=== PATIENT | male | born 1960 | race Caucasian/White ===

== ENCOUNTER 2024-11-16 10:25 | Day surgery (SDC) | payer MEDICARE, MEDICAID, SELFPAY ==
[2024-11-13 14:42] VITALS: BMI 22.9
[2024-11-16] VITALS (12 sets, daily range): BP systolic 99–160; BP diastolic 53–95; PULSE 45–73; RESP 11–22; TEMP 36.2–36.9; O2SAT 97–100; BMI 22.6
[2024-11-16] MEDS: SODIUM CHLORIDE 0.9% 500 ML 500 ML 20 ML IV (12:48)
[2024-11-16] MEDS: DiphenhydrAMINE INJ 50 MG/ML VIAL 25 MG IV (12:48)
[2024-11-16] MEDS: ONDANSETRON INJ 2 MG/ML INJ 2 ML 4 MG IV (12:48)
[2024-11-16] MEDS: fentaNYL CIT INJ 50 mCg/ML AMP 2ML (ASD USE ONLY) IV (12:48)
[2024-11-16] MEDS: MIDAZOLAM INJ 1 MG/ML VIAL 2 ML (ASD USE ONLY) 2 MG IV (12:49)
--- NOTE | 2024-11-16 13:16 | SUR.PHASEII ---
Hand off report given to Piyush REESE
== END 2024-11-16 14:00 | disposition home or self-care (01) ==
PROVIDERS: PCP Family Medicine; Referring Provider Specialist; Visit Provider Specialist
PROC: 0DBE8ZX Excision of Large Intestine, Via Natural or Artificial Opening Endoscopic, Diagnostic (ICD-10-PCS; CPT 45380; principal; 2024-11-16 10:15)
PROC: (CPT 43239; 2024-11-16 10:15)
DX: D12.8 Benign neoplasm of rectum (principal); D64.9 Anemia, unspecified; K57.31 Diverticulosis of large intestine without perforation or abscess with bleeding
CPT/HCPCS: 45380; 45385; A4649; J1200; J2250; J2405; J3010; J7040

== ENCOUNTER 2024-12-31 08:50 | Inpatient (IN) | payer MEDICARE, MEDICAID, SELFPAY ==
[2024-12-31] VITALS (7 sets, daily range): BP systolic 133–159; BP diastolic 78–81; PULSE 51–84; RESP 16–97; TEMP 36.4–36.7; O2SAT 95–99; BMI 24.7
--- NOTE | 2024-12-31 | XR_ITS ---
Examinations: MRI Brain without intravenous contrast. MRA brain without intravenous contrast. MRA carotids without intravenous contrast 3-D vascular reconstructions Date and time of exam: December 31, 2024 1344 hrs. Indications: Stroke alert this morning, onset right-sided body weakness slurred speech Technique: Multiple axial and sagittal images of the brain have been obtained MRA brain carotid images without contrast obtained, including 3-D postprocessing, vascular maximum intensity projection images Findings: Sellaturcica is not enlarged. The optic chiasm and infundibular stalk are not remarkable. Prepontine and interpeduncular cisterns are not enlarged. No localized enlargement of the medulla or michael. Fourth ventricle and cerebellar tonsils normal in position. Subacute hemorrhage is not seen. Fourth ventricle is midline. Mass in the cerebellopontine angle region is not evident. 7th and 8th nerve complexes exhibits symmetry. Globes are symmetrical with no retro-orbital mass. Increased white matter signal significant, old infarct posterior left parietal left occipital lobe Diffusion-weighted images demonstrate no focus of restricted diffusion with matching ADC deficit Mass-effect upon the ventricular system is not identified. MRA carotid images no significant carotid stenoses. MRA brain images no large vessel occlusions, there is moderate diffuse cerebral arterial irregularity Impression: Negative for acute hemorrhage mass effect or midline shift No acute infarct Large old infarct posterior left parietal left occipital lobe Moderate diffuse cerebral arterial irregularity
--- NOTE | 2024-12-31 08:54 | EDNOTE_ITS ---
Neuro Symptoms Deficit-RME/HPI General Chief Complaint: Neuro Symptoms/Deficit Stated Complaint: WEAKNESS Time Seen by Provider: 12/31/24 09:14 Arrival date/time: 12/31/24 08:50 RME / HPI RME / HPI Narrative: 64 year old male with history of CVA, lung CA s/p postradiation, hypertension, BPH presents to the ED BIBA from home for evaluation of right sided weakness and slurred speech. Patient reports symptoms began yesterday and per medics was last known well at 21:00 hours last night. Per medics, on their assessment patient had right arm weakness with drift and FSBS 158. No other complaints reported while in the ED. Denies fevers, chills, sweats.Denies chest pain, cough, shortness of breath. Denies nausea, vomiting, diarrhea, constipation. Denies dysuria, urinary frequency and urgency. Related Data Home Medications ?Medication ?Instructions ?Recorded ?Confirmed Phenytoin Sodium Extended * 300 mg PO HS #0 caps 04/1411/16/24 (DILANTIN *) oxcarbazepine 300 mg tablet 900 mg PO BID #0 tabs 03/2411/16/24 (Trileptal) tamsulosin 0.4 mg capsule 0.4 mg PO QDAY 05/05/2010/25 topiramate 25 mg sprinkle capsule 25 mg PO BID Seizure s 11/28/22 11/16/24 atorvastatin 20 mg tablet 20 mg PO QAM 01/09/23 Previous Rx's ?Medication ?Instructions ?Recorded aspirin 81 mg tablet,delayed 81 mg PO DAILY 30 days #3 0 tabs 12/08/22 release (Jerica Low Dose Aspirin) Allergies Allergy/AdvReac Type Severity Reaction Status Date / Time No Known Allergies Allergy Verified 11/16/24 10:57 Review of Systems Review of Systems Narrative Review of Systems: GEN: No fever, no chills, no weight loss EYES: No discharge, no visual changes, no pain HEENT: No ear pain, no congestion, no sore throat PULM: No shortness of breath, no cough, no congestion CV: No chest pain, no dyspnea on exertion, no palpitations GI: No nausea, no vomiting, no diarrhea, no pain, no constipation : No frequency, no urgency, no dysuria MUSC/SKEL: No joint pain, no back pain SKIN: No rash NEURO: No headache, +rigth sided weakness, +slurred speech Past Medical History Past Medical History NEUROLOGIC: Positive Cerebrovascular Accident and Seizures CARDIAC: Positive Cardiac Disorders, Hypercholesterolemia and Hypertension RESPIRATORY: Positive Cough and Smoking GASTROINTESTINAL: Positive Gastrointestinal Disorders (HEMMOCULT BLOOD IN STOOL) GENITOURINARY: Positive Genitourinary Disorders and Benign Prostatic Hyperplasia MUSCULOSKELETAL: Positive Musculoskeletal Disorders and Fractures (LEFT HIP) OTHER HISTORY: Positive Chemotherapy (20 years ago), Radiation Therapy (20 years ago), Cancer (brain and lung ca) and Lung Cancer Family History FAMILY HISTORY: Positive Family Cancer (PT'S MOM BREAST CANCER, PT'S DAD BRAIN CANCER) Surgical History SURGICAL: Positive Joint Replacement (LEFT HIP) and Neurologic Surgery; Negative Cardiac Surgery Social History SMOKING STATUS: Former smoker ED Exam Narrative Physical exam: GENERAL APPEARANCE: alert and oriented x 4, well-developed, well-nourished, no acute distress, subjective slurred speech HEENT: Normocephalic, atraumatic; pupils equal, round, reactive to light; EOMI; mucous membranes pink, moist; oropharynx clear NECK: Supple LUNGS: CTABL; no wheezes, no rales, no rhonchi HEART: Regular rate, regular rhythm; normal S1, S2; no murmurs ABDOMEN: non distended; normal BS; soft, no tenderness, no guarding, no rebound; no masses, no organomegaly, no hernia BACK: no CVA tenderness EXTREMITIES: atraumatic; no edema NEUROLOGIC: awake; alert and oriented x4; subjective slurred speech, mild right sided weakness PSYCHIATRIC: appropriate mood and affect SKIN: warm, dry, normal color; no rashes Course Course Course Narrative: 0852: Patient evaluated in ED ambulance bay, stroke alert activated. 0930: I spoke with teleneurologist Dr. Moura as noted below. 1020: I spoke with resident Dr. James working with Dr. Parada regarding admission as noted below. Quality Measures Suspected type of Stroke: Unknown at this time (Seizure vs stroke ) Last known well (date): 12/30/24 Last known well (time): 21:00 Tenecteplase given: Reason(s) TPA not given: Outside the time window not given stroke Orders Category Date Time Status Bedside Blood Glucose NOW Care 12/31/24 08:54 Active White Metal Corrosion Proofer NOW Care 12/31/24 08:54 Active Continuous Pulse Oximetry NOW Care 12/31/24 08:54 Completed EKG (ED ONLY) *Do not use* NOW Care 12/31/24 08:54 Completed In and Out Catheter NEEDED Care 12/31/24 08:54 Active Insert IV NOW Care 12/31/24 08:54 Active NIH Stroke Scale now Care 12/31/24 08:54 Active NPO NOW Care 12/31/24 08:54 Active Nurse Swallow Screen x1 Care 12/31/24 08:54 Active Consult to Neurology / Tele-Neurology Routine Cons 12/31/24 08:[address] angio stroke protocol Stat Exams 12/31/24 08:[address] stroke protocol Stat Exams 12/31/24 08:54 Completed EKG (ED Only) Stat Exams 12/31/24 08:54 Draft Alcohol, Blood Medical Stat Lab 12/31/24 09:08 Completed CBC Stat Lab 12/31/24 09:08 Completed Comprehensive Metabolic Panel Stat Lab 12/31/24 09:08 Completed Drug Screen,Urine Stat Lab 12/31/24 10:32 Completed Magnesium Stat Lab 12/31/24 09:08 Completed Partial Thromboplastin Time Stat Lab 12/31/24 09:08 Completed Prothrombin Time with INR Stat Lab 12/31/24 09:08 Completed Troponin I Stat Lab 12/31/24 09:08 Completed Urinalysis Stat Lab 12/31/24 10:32 Completed Urine Culture Stat Lab 12/31/24 10:32 Received Aspirin Chew Med 12/31/24 09:32 Discontinued 324 mg PO X1 ONE Clopidogrel [Plavix] Med 12/31/24 09:32 Discontinued 300 mg PO X1 ONE Ondansetron Inj [Zofran Inj] Med 12/31/24 08:53 Active 4 mg IV Q4HR PRN Oxygen Delivery NOW RT 12/31/24 08:54 Active Vital Signs Vital signs: Vital Signs Temperature 98.1 F 12/31/24 09:15 Pulse Rate 73 12/31/24 09:15 Respiratory Rate 16 12/31/24 09:15 Blood Pressure 159/81 H 12/31/24 09:15 Pulse Oximetry (%) 96 12/31/24 09:15 Oxygen Delivery Method Room Air 12/31/24 09:15 Neuro Symptoms / Deficit MDM Narrative MDM Narrative:: Britt Gutierrez am scribing for and in the presence of Dr. Hernandez. Patient data External records reviewed:: [facility] previous records (I reviewed ED visit on 02/23/2024 through 02/27/2024 ) and EMS form Clinical information provided by:: patient and EMS Social determinants that could affect healthcare access:: none Patient has the following chronic illnesses:: CVA, lung CA with brain mets s/p radiation, hypertension, BPH How is presenting disease/condition affected by chronic disease/condition?: exacerbated by Evaluation data The following diagnostics were reviewed and interpreted by me:: lab results, radiology exam(s) and EKG tracing(s) (EKG @ 09:51 AM. Normal sinus rhythm, rate 73, ST depression in lead II V5 and V6, mild IVCD. ) Lab and/or radiology exams considered but not ordered:: None Interpretation Summary: Ordering Physician: Terra Hernandez MD Date of Service: 12/31/24 Procedure(s): CT stroke protocol Accession Number(s): [id number] cc: Champ Wu MD; Terra Hernandez MD~ Examination: CT brain head without contrast. 2-D sagittal coronal reconstructions Date and time of exam:December 31, 2024 0858 hrs. Comparison 08/12/2024 Indications: Stroke alert, onset focal neurologic deficit, right-sided facial weakness today CTDI: vol (mGy):47.1 DLP: (mGycm):1034 Technique: Multiple CT axial sections of the brain have been obtained, 5 mm slice thickness. Contrast has not been administered. 2-D sagittal, coronal reconstructions have been obtained Low dose protocols were performed. One or more of the following dose reduction techniques were used; automated exposure control, adjustment of the mA and/or KV according to patient size, use of iterative reconstruction technique. Findings: Again noted left occipital craniotomy defect with encephalomalacia left posterior parietal left occipital lobe Mild ventricular enlargement Old infarct left caudate nucleus No interval hemorrhage or mass effect No cranial vault fracture Impression: No interval acute hemorrhage mass effect or midline shift Dictated By: Champ Wu MD Signed By: <Electronically signed by Champ Wu MD in OV> 12/31/24 0904 Ordering Physician: Terra Hernandez MD Date of Service: 12/31/24 Procedure(s): CT angio stroke protocol Accession Number(s): [id number] cc: Champ Wu MD; Terra Hernandez MD~ Examination: CTA carotids with intravenous contrast CTA brain, head with intravenous contrast. 2-D sagittal, coronal reconstructions. 3-D reconstructions. Exam date and time: December 31, 2024 0906 hrs. Indications: Stroke alert, onset right-sided facial weakness today CTDI: vol (mGy) 25.6 DLP: (mGycm) 480 Technique: Multiple CTA axial brain, head carotid images post intravenous contrast injection 75 cc, Isovue-370. 2-D sagittal, coronal reconstructions. 3-D reconstructions, 3-D post processing including vascular maximum intensity projection images. Low dose protocols were performed. One or more of the following dose reduction techniques were used; automated exposure control, adjustment of the mA and/or KV according to patient size, use of iterative reconstruction technique. Findings: 4 mm pulmonary nodule right upper lobe image 235 12 mm soft pulmonary nodule right upper lobe image 252 Bleb in the left upper lobe 20 mm image 219 No significant common carotid carotid bifurcation or internal carotid artery stenoses Minimally dominant left vertebral artery in the neck with no critical stenoses Intracranial vertebral arteries basilar artery posterior cerebral branches demonstrate no large vessel occlusions Moderate calcification right juxtasellar internal carotid artery No middle cerebral or anterior cerebral artery large vessel occlusions There is mild to moderate diffuse cerebral arterial irregularity Impression: Small right upper lobe pulmonary nodules as above No significant neck arterial stenoses No cerebral large vessel arterial occlusions or thrombus Consider brain MRI MRA, without contrast, stroke protocol, follow-up Dictated By: Champ Wu MD Signed By: <Electronically signed by Champ Wu MD in OV> 12/31/24 0929 Medications / Prescriptions Medications or Prescriptions considered but not ordered:: None Medication administrations:: Medication Administration History Ondansetron HCl (Ondansetron Inj 2 Mg/Ml Inj 2 Ml) 4 mg IV Q4HR PRN PRN Reason: NAUSEA OR VOMITING Stop: 01/30/25 08:52 Discontinued Medications Aspirin (Aspirin 81 Mg Chew) 324 mg PO X1 ONE Stop: 12/31/24 09:33 Last Admin: 12/31/24 09:49 Dose: 324 mg Documented By: GM Clopidogrel Bisulfate (Clopidogrel Bisulfate 75 Mg Tablet) 300 mg PO X1 ONE Stop: 12/31/24 09:33 Last Admin: 12/31/24 09:47 Dose: 300 mg Documented By: See above Consultations Consultation(s) initiated? (list below): Yes Consultation #1 (Physician, Specialty, Details): I spoke with teleneurologist Dr. Moura. States at this time patient is not a tpa candidate, recommends Plavix and Aspirin and admitting for stroke vs seizure work-up. Time: 09:30 Consultation #2 (Physician, Specialty, Details): I spoke with resident Dr. James working with Dr. Parada regarding admission. Discussed patients PMHx, HPI, ED course, exam findings, labs, and radiology results. The hospitalist agree to accept the patient for admission. Time: 10:20 Diagnosis Neuro Differential Diagnosis: subarachnoid hemorrhage, cerebrovascular accident, transient cerebral ischemia and other (seizure ) Most likely diagnosis given after review of the tests above:: Slurred speech Right sided weakness Admission Indicated Admission indicated?: indicated Explain why admission is indicated or not indicated:: Fort stroke vs seizure work-up Admission Request Was there a request for admission?: Yes Admission Attestation Admission request attestation: Discussed case with [] from Hospitalist service regarding admission. Discussed patients ED course, exam findings, labs, and radiology results. The Hospitalist [agrees,declines] to accept the patient for admission. Disposition Plan Disposition Plan: Admit Critical Care Time Critical Care Time Critical Care Time: Yes Total Critical Care Time (min.): 35 Attestation: The high probability of sudden, clinically significant deterioration in the patient's condition required the highest level of my preparedness to intervene urgently. The services I provided to this patient were to treat and/or prevent clinically significant deterioration. Services included the following: chart data review, reviewing nursing notes and/or old charts, documentation time, art sales consultant collab oration regarding findings and treatment options, medication orders and management, direct patient care, vital sign assessments and ordering, interpreting and reviewing diagnostic studies and lab tests. Aggregate critical care time includes only time during which I was engaged in work directly related to the patient's care, as described above, whether at bedside or elsewhere in the Emergency Department. It did not include time spent performing other reported procedures or the services of residents, students, nurses or physician assistants. Discharge Plan Plan Patient Disposition: Admit Acute Care w/in Hospital Prescriptions/Referrals Prescriptions/Med Rec: No Action tamsulosin 0.4 mg capsule 0.4 mg PO QDAY oxcarbazepine [Trileptal] 300 MG tablet 900 mg PO BID Qty: 0 Rx Instructions: TAKE 3 TABLETS BY MOUTH TWICE DAILY Phenytoin Sodium Extended * (DILANTIN *) 100 MG capsule 300 mg PO HS Qty: 0 Patient Comments: FOR SEIZURE CONTROL topiramate 25 mg Capsule, Sprinkle 25 mg PO BID Rx Instructions: TAKE 1 CAPSULE BY MOUTH TWICE DAILY FOR SEIZURES aspirin [Jerica Low Dose Aspirin] 81 mg Tablet,Delayed Release (Dr/Ec) 81 mg PO DAILY 30 Days Qty: 30 0RF atorvastatin 20 mg tablet 20 mg PO QAM Referrals: No Primary/Family,Physician [Primary Care Provider] - In 1 week Problem List Clinical Impression: Slurred speech, Right sided weakness Patient/Caregiver Discharge Instructions Print Language: Hungarian Stand Alone Forms: Jasmina Award Info., Patient Portal Info Letter
--- NOTE | 2024-12-31 08:54 | EKG_ITS ---
[facility] Test Date: 2024-12-31 Pat Name: ANTON HATCH Department: Room: - Gender: Male Senior Economist: : 1960 Requested By: Terra Don Order Number: [id number] Reading MD: Terra Don Measurements Intervals [place] Rate: 73 P: 70 ME: 164 QRS: 7 QRSD: 118 T: 47 QT: 396 QTc: 437 Interpretive Statements SINUS RHYTHM MODERATE INTRAVENTRICULAR CONDUCTION DELAY [110+ ms QRS DURATION] MODERATE VOLTAGE CRITERIA FOR LVH, CONSIDER NORMAL VARIANT [MEETS CRITERIA IN ONE OF: R(aVL), S(V1), R(V5), R(V5/V6)+S(V1)] Compared to ECG 05/20/2024 10:39:15 Intraventricular conduction delay now present Ventricular premature complex(es) no longer present Incomplete right bundle-branch block no longer present T-wave abnormality no longer present /store/S0/[id number]/ecg/[id number].pdf
--- NOTE | 2024-12-31 09:07 | PC.NURSE ---
DR. Jonah PHILIPPE FOR TELENEUROLOGIST CONSULT; PER DR. Jonah PHILIPPE, PT NOT A CANDIDATE FOR TNK AT THIS TIME.
[2024-12-31 09:14] LABS: Basophils # (Auto) 0.1 Thou/mm3 (0.0-0.2); Basophils % (Auto) 1 % (0-2.5); Eosinophils # (Auto) 0.1 Thou/mm3 (0.0-0.5); Eosinophils % (Auto) 1 % (0-10); Hematocrit 36.8 % (41.0-53.0); Hemoglobin 12.7 g/dL (13.5-16.0); Immature Granulocytes % (Auto) 1 % (0-0); Immature Granulocytes Auto 0.05 Thou/mm3 (0.00-0.00); Lymphocytes # (Auto) 1.8 Thou/mm3 (1.0-4.8); Lymphocytes % (Auto) 17 % (10-50); Mean Corpuscular HGB Conc 34.5 g/dl (31.0-37.0); Mean Corpuscular Hemoglobin 29.3 pg (25.0-35.0); Mean Corpuscular Volume 85 fL (80-100); Monocytes # (Auto) 0.8 Thou/mm3 (0.0-0.8); Monocytes % (Auto) 8 % (0-12); Neutrophils # (Auto) 7.9 Thou/mm3 (1.8-7.7); Neutrophils % (Auto) 74 % (37-80); Nucleated Red Blood Cell % 0 /100 WBC (0); Platelet Count 264 Thou/mm3 (140-440); RDW Standard Deviation 46.1 fL (35.1-43.9); Red Blood Count 4.33 Miln/mm3 (4.50-5.90); White Blood Count 10.7 Thou/mm3 (3.8-10.6)
[2024-12-31 09:28] LABS: Partial Thromboplastin Time 26.2 Seconds (22.0-36.0); Prothrombin Time 11.2 Seconds (9.0-12.2)
--- NOTE | 2024-12-31 09:40 | PD.TNEURO ---
Tele Neuro Consultation Consultation Date 12/31/24 Most Recent Vital Signs Last Vital Signs Temp 98.1 F 12/31/24 09:15 Pulse 73 12/31/24 09:15 Resp 20 12/31/24 09:15 BP 159/81 H 12/31/24 09:15 Pulse Ox 96 12/31/24 09:15 O2 Del Method Room Air 12/31/24 09:15 Laboratory-Coagulation Panel PT 11.2 Seconds (9.0-12.2) 12/31/24 09:08 INR 1.0 (0.9-1.3) 12/31/24 09:08 APTT 26.2 Seconds (22.0-36.0) 12/31/24 09:08 Consultation Narrative [facility] Tele[facility]urology Consult Services Patient Name:???Wil Garcia Date of :???1960 Identification Number:??? 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 Patient experienced slurred speech and difficulty eating yesterday, followed by weakness, trouble walking, and falls today. Neurological examination revealed right-sided visual field deficits and possible motor deficits. Current vital signs show elevated blood pressure at 161/77 and blood glucose of 158. Differential diagnosis includes new stroke, seizure, or SMART syndrome exacerbation. Time of symptom onset places patient outside the window for thrombolytic therapy. Further evaluation with brain MRI is necessary to determine the etiology of symptoms. Our recommendations are outlined below. Recommendations: ? Stroke/Telemetry Floor ? Neuro Checks ? Bedside Swallow Eval ? DVT Prophylaxis ? IV Fluids, Normal Saline ? Head of Bed 30 Degrees ? Euglycemia and Avoid Hyperthermia (PRN Acetaminophen) ? Bolus with Clopidogrel 300 mg bolus x1 and initiate dual antiplatelet therapy with Aspirin 81 mg daily and Clopidogrel 75 mg daily ? Antihypertensives PRN if Blood pressure is greater than 220/120 or there is a concern for End organ damage/contraindications for permissive HTN. If blood pressure is greater than 220/120 give labetalol PO or IV or Vasotec IV with a goal of 15% reduction in BP during the first 24 hours. Sign Out: ? Discussed with Emergency Department Provider Advanced Imaging:CTA Head and Neck Completed. LVO:No Patient in not a candidate for JENNY Metrics: Last Known Well: 12/30/2024 10:00:00 Dispatch Time: 12/31/2024 08:54:37 Arrival Time: 12/31/2024 08:50:00 Initial Response Time: 12/31/2024 09:01:50Symptoms: slurred speech, weakness. Initial patient interaction: 12/31/2024 09:13:44 NIHSS Assessment Completed: 12/31/2024 09:20:00Patient is not a candidate for Thrombolytic. Thrombolytic Medical Decision: 12/31/2024 09:20:00Patient was not deemed candidate for Thrombolytic because of following reasons: LKW outside [address] head showed no acute hemorrhage or acute core infarct. Primary Provider Notified of Diagnostic Impression and Management Plan on: 12/31/2024 09:27:34 History of Present Illness:Patient is a 64 year old Male. Patient was brought by EMS for symptoms of slurred speech, weakness. Mr. Garcia, a 64-year-old male with a history of stroke in 2019, Smart syndrome, Lung cancer, HTN presents with acute onset of neurological symptoms. Yesterday at 10 a.m., his grandson noticed difficulty eating and slurred speech. Today, his daughter reported weakness, trouble walking, and a fall this morning. The patient also experienced another fall, urinary incontinence, and inability to hold a cup or fork. The patient's symptoms began yesterday with slurred speech and difficulty eating. This morning, his condition worsened, leading to falls, weakness, and gait disturbance. The patient was unable to perform basic tasks such as holding utensils or walking independently. These symptoms have significantly impacted his daily functioning and self-care abilities. Mr. Garcia has a history of seizures, with the last episode occurring a few years ago. He is currently taking aspirin .The patient's daughter, Valeri, provided additional information about his recent symptoms and medical history. ? 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 Antiplatelet use:?Yes?asa Reviewed EMR for current medications Allergies:? Reviewed Social History: Drug Use: No Family History: There is no family history of premature cerebrovascular disease pertinent to this consultation ROS : 14 Points Review of Systems was performed and was negative except mentioned in HPI. Past Surgical History: There Is No Surgical History Contributory To Today?s Visit ? Examination: BP(161/77),?Pulse(78),?Blood Glucose(158) 1A: Level of Consciousness - Alert; keenly responsive?+ 0 1B: Ask Month and Age - 1 Question Right?+ 1 1C: Blink Eyes & Squeeze Hands - Performs Both Tasks?+ 0 2: Test Horizontal Extraocular Movements - Normal?+ 0 3: Test Visual Schwab - Partial Hemianopia?+ 1 4: Test Facial Palsy (Use Grimace if Obtunded) - Normal symmetry?+ 0 5A: Test Left Arm Motor Drift - No Drift for 10 Seconds?+ 0 5B: Test Right Arm Motor Drift - Drift, but doesn't hit bed?+ 1 6A: Test Left Leg Motor Drift - No Drift for 5 Seconds?+ 0 6B: Test Right Leg Motor Drift - No Drift for 5 Seconds?+ 0 7: Test Limb Ataxia (FNF/Heel-De La Cruz) - Ataxia in 1 Limb?+ 1 8: Test Sensation - Normal; No sensory loss?+ 0 9: Test Language/Aphasia - Normal; No aphasia?+ 0 10: Test Dysarthria - Normal?+ 0 11: Test Extinction/Inattention - No abnormality?+ 0 NIHSS Score:?4 Pre-Morbid Modified [place] Scale:Unable to assess Spoke with :?Dr. Hernandez This consult was conducted in real time using interactive audio and video technology. Patient was informed of the technology being used for this visit and agreed to proceed. Patient located in hospital and provider located at home/office setting. Patient is being evaluated for possible acute neurologic impairment and high probability of imminent or life-threatening deterioration. I spent total of 35 minutes providing care to this patient, including time for face to face visit via telemedicine, review of medical records, imaging studies and discussion of findings with providers, the patient and/or family. Dr Anmol Moura [facility] For Inpatient follow-up with [facility] physician please call [facility] at . As we are not an outpatient service for any post hospital discharge needs please contact the hospital for assistance. If you have any questions for the [facility] physicians or need to reconsult for clinical or diagnostic changes please contact us via [facility] at .
[2024-12-31 09:47] LABS: Alanine Aminotransferase < 7 U/L (10-49); Albumin, Serum 4.4 gm/dL (3.4-4.8); Alcohol, Blood Medical < 3.0 mg/dL (0-10.0); Alkaline Phosphatase 115 U/L (46-116); Anion Gap 7 (7-16); Aspartate Amino Transferase 11 U/L (0-34); BUN/Creatinine Ratio 13 Ratio (12-20); Bilirubin,Total 0.3 mg/dL (0.3-1.2); Blood Urea Nitrogen 12 mg/dL (9-23); Calcium 8.7 mg/dL (8.3-10.6); Calcium (Corrected) 8.7 mg/dL (8.5-10.1); Carbon Dioxide 27.6 mMol/L (20.0-31.0); Chloride 106 mMol/L (98-107); Creatinine (Component) 0.9 mg/dL (0.6-1.3); Estimated Creatinine Clearance 80.2 mL/min (>60); Globulin 2.2 gm/dL (2.3-3.5); Glucose 128 mg/dL (74-106); Magnesium 1.8 mg/dL (1.6-2.6); Osmolality,Calculated 282 (275-295); Potassium 3.5 mMol/L (3.4-5.1); Sodium 141 mMol/L (136-145); Total Protein 6.6 gm/dL (5.7-8.2); Troponin I < 0.020 ng/mL (0.0-0.045); eGFR > 60 See Note
[2024-12-31] MEDS: CLOPIDOGREL BISULFATE 75 MG TABLET 300 MG PO (09:47)
[2024-12-31] MEDS: ASPIRIN 81 MG CHEW 324 MG PO (09:49)
[2024-12-31 10:47] LABS: Collection Type, Urine Clean Catch; Squamous Epithelial Cell,Urine 0 /hpf (0-5); WBC,Urine 0 /hpf (0-5)
[2024-12-31 10:58] LABS: Amorphous Crystals,Urine Present (Absent); Bilirubin,Urine Negative (Negative); Blood,Urine Negative (Negative); Color,Urine Lt-Yellow (Lt Yel-Yel); Glucose, Urine Negative (Negative); Ketones,Urine Negative (Negative); Leukocyte Esterase,Urine Negative (Negative); Nitrite,Urine Negative (Negative); Protein,Urine Negative (Neg - Trace); RBC,Urine 2 /hpf (0-3); Specific Gravity,Urine 1.033 (1.001-1.035); Urobilinogen,Urine Negative mg/dL (0.0-1.0)
[2024-12-31 11:03] LABS: Amphetamine/Methamp Scrn,U Negative (Negative); Barbiturate Screen,Urine Negative (Negative); Benzodiazepines Screen,Urine Negative (Negative); Benzoylecgonine Screen, Ur Negative (Negative); Fentanyl Screen,Urine Negative (Negative); Opiate Screen,Urine Negative (Negative); THC Screen,Urine Positive (Negative)
[2024-12-31 11:07] LABS: Clarity,Urine Hazy (Clear/Hazy)
--- NOTE | 2024-12-31 12:03 | PD.RESHP ---
Documentation for date of: 12/31/24 HPI History of Present Illness Chief complaint: Right-sided weakness History of present illness: Mr. 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 Patient experienced slurred speech and difficulty eating yesterday, followed by weakness trouble walking earlier today, patient reported that he was getting out of bed and he fell, hitting his right arm patient denies losing consciousness, presyncopal symptoms also denies hitting his head. Patient continues to complain of weakness in the right leg, reports that his right arm weakness has improved, no drooping noted on the face and slurred speech has resolved as well. Patient reports extensive history of seizure workup in the past, reports having craniotomy done as well. Patient does have Port-A-Cath intact on right side of the chest from CAMPOS therapy in the past. Otherwise patient denied any seizure or seizure-like activity, patient does have complicated complex seizure history. Per patient's family and patient it is unlikely he had a seizure. Patient denies any cardiac history, denies any history of palpitations, skipped beats or feeling of heart beating out of the chest and patient denies any history of following up with a sales broker. Patient was seen by teleneurologist in the emergency department who recommended admission for further workup. ED Course: ED Vitals: ED vitals significant for blood pressure 159/81, heart rate 73, respiratory 16, temp 98.1, O2 sat 96 on room air ED Labs: ED labs show WBC 10.7, hemoglobin 12.7, RBC 4.33, hematocrit 36.8, platelet 264, INR 1.0 sodium 141, potassium 3.5, chloride 106, venous CO2 27.6, BUN 12, creatinine 0.9, GFR more than 60, glucose 128, calcium 8.7, magnesium 1.8, AST 11, troponin negative globulin 2.2, albumin 4.1, total protein 6.6. Patient's urine analysis is positive for amorphous crystals ED Imaging: CT scan of the head negative in ED and CTA head and neck negative as well patient's EKG showed sinus rhythm no acute ST?T changes noted ED Treatment: Patient was given loading dose aspirin and Plavix in the ED and teleneuro was consulted who recommended admission and further workup Review of Systems Review of Systems Narrative Review of Systems: ROS: -CONSTITUTIONAL: Denies weight loss, fever and chills. -HEENT: Denies changes in vision and hearing. -RESPIRATORY: Denies SOB and cough. -CV: Denies palpitations and Chest Pain. -GI: Denies abdominal pain, nausea, vomiting,constipation and diarrhea. -: Denies dysuria and urinary frequency. -MSK: Positive for right leg weakness, some weakness noted on the right hand though minimal. -SKIN: Denies rash and pruritus. -NEUROLOGICAL: Denies headache and syncope. Positive for slurred speech -PSYCHIATRIC: Denies recent changes in mood. Denies anxiety and depression. 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, lung cancer with metastasis to brain in remission status postradiation and surgical therapy, benign prostate hypertrophy, history of CVA in 2019 and hypertension PSHx: Craniotomy, one third lung resection, brain metastatic mass surgery, left hip replacement and right hip fracture Allergies: No known allergies Social history: -Smoking:positive for 40 smoking years in the past -Alcohol Use: Positive for occasional alcohol use in the past -Illicit Drug Use: Positive for illicit drug use in the past, use of marijuana currently -Occupation: Patient used to work at [facility] for about 20 years in [employer] 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 Conversational and non-toxic appearing. Somewhat anxious. HEENT: Normocephalic, atraumatic, mucous membranes moist. Port-A-Cath noted right chest. Heart: Regular rate and rhythm, no murmurs. Lungs: Clear to auscultation with no wheezing or crackles. Abdomen: Soft, nondistended, nontender, positive bowel sounds. ?No guarding or rebound tenderness. Neurologic: Alert and oriented x3, gross neurological deficit noted, significant right leg weakness though patient is able to move the leg, mild weakness noted right upper arm. Extremities: No edema. Positive for multiple ecchymosis on body, fresh injury and bruise on right upper arm. Skin: No rash or ecchymoses. Results: Labs 12/31/24 09:08 12/31/24 09:08 Labs: Short CBC 12/31/24 Range/Units 09:08 WBC 10.7 H (3.8-10.6) Thou/mm3 Hgb 12.7 L (13.5-16.0) g/dL Hct 36.8 L (41.0-53.0) % Plt Count 264 (140-440) Thou/mm3 BMP 12/31/24 09:08 Sodium 141 Potassium 3.5 Chloride 106 Carbon Dioxide 27.6 BUN 12 Creatinine 0.9 Glucose 128 H Calcium 8.7 Cardiac Enzymes 12/31/24 Range/Units 09:08 Troponin I < 0.020 (0.0-0.045) ng/mL Liver Function 12/31/24 Range/Units 09:08 Total Bilirubin 0.3 (0.3-1.2) mg/dL AST 11 (0-34) U/L ALT < 7 L (10-49) U/L Alkaline Phosphatase 115 (46-116) U/L Albumin 4.4 (3.4-4.8) gm/dL Urine 12/31/24 Range/Units 10:32 Urine Color Lt-Yellow (Lt Yel-Yel) Urine Clarity Hazy (Clear/Hazy) Urine pH 8.0 H (5.0-7.0) Ur Specific [place] 1.033 (1.001-1.035) Urine Protein Negative (Neg - Trace) Urine Glucose (UA) Negative (Negative) Quality Measures Quality Measures stroke Suspected type of Stroke: Unknown at this time (Seizure vs stroke ) Last known well (date): 12/30/24 Last known well (time): 21:00 Tenecteplase given: Reason(s) Tenecteplase not given: Outside the time window not given Rehab services: PT evaluation ordered and Speech Language Pathology eval ordered VTE Prophylaxis: pharmaceutical Antithrombotic by day 2:: ordered Statin ordered: >75 y/o moderate or high intensity dose Anticoagulation ordered for A-fib or flutter (current or hx): not indicated Medications Home Medications and Allergies Home Medications ?Medication ?Instructions ?Recorded ?Confirmed ?Type Phenytoin Sodium Extended * 300 mg PO HS #0 caps 04/14/17 12/31/24 History (DILANTIN *) oxcarbazepine 300 mg tablet 900 mg PO BID #0 tabs 04/14/17 12/31/24 History (Trileptal) tamsulosin 0.4 mg capsule 0.4 mg PO QDAY 05/05/20 12/31/24 History topiramate 25 mg sprinkle capsule 25 mg PO BID Seizures 11/28/22 12/31/24 History atorvastatin 20 mg tablet 20 mg PO QAM 01/09/23 12/31/24 History Allergies Allergy/AdvReac Type Severity Reaction Status Date / Time No Known Allergies Allergy Verified 11/16/24 10:57 Visit Medications Acetaminophen (Acetaminophen 325 Mg Tablet) 650 mg PO Q6H PRN PRN Reason: Mild Pain (1-3) & Fever >100.4 Stop: 01/30/25 11:46 Aspirin (Aspirin Ec 81 Mg Tabec) 81 mg PO QDAY [facility] Stop: 01/31/25 08:59 Atorvastatin Calcium (Atorvastatin Calcium 20 Mg Tablet) 80 mg PO HS [facility] Stop: 01/30/25 20:59 Clopidogrel Bisulfate (Clopidogrel Bisulfate 75 Mg Tablet) 75 mg PO QDAY [facility] Stop: 01/31/25 08:59 Heparin Sodium (Porcine) (Heparin Sod Inj 5000 Unit/Ml Vial) 5,000 unit SC Q8HR [facility] Stop: 01/14/25 21:59 Ondansetron HCl (Ondansetron Inj 2 Mg/Ml Inj 2 Ml) 4 mg IV Q4HR PRN PRN Reason: NAUSEA OR VOMITING Stop: 01/30/25 08:52 Oxcarbazepine (Oxcarbazepine 150 Mg Tablet (Non-Formulary)) 900 mg PO BID [facility] Stop: 01/30/25 20:59 Phenytoin (Phenytoin 100 Mg Capsr) 300 mg PO HS [facility] Stop: 01/30/25 20:59 Sennosides (Senna Tablet) 1 tab PO QDAY PRN; Protocol PRN Reason: constipation Stop: 01/30/25 11:46 Tamsulosin HCl (Tamsulosin Hcl 0.4 Mg Capsule) 0.4 mg PO QDAY [facility] Stop: 01/31/25 08:59 Topiramate (Topiramate 25 Mg Tablet) 25 mg PO BID [facility] Stop: 01/30/25 20:59 Discontinued Medications Aspirin (Aspirin 81 Mg Chew) 324 mg PO X1 ONE Stop: 12/31/24 09:33 Last Admin: 12/31/24 09:49 Dose: 324 mg Clopidogrel Bisulfate (Clopidogrel Bisulfate 75 Mg Tablet) 300 mg PO X1 ONE Stop: 12/31/24 09:33 Last Admin: 12/31/24 09:47 Dose: 300 mg Assessment & Plan Plan Assessment and plan: Summary: Mr. 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 Patient admitted to the hospital for further CVA workup. #CVA workup #History of CVA in 2019 Patient experienced slurred speech and difficulty eating yesterday, followed by weakness trouble walking earlier today, patient reported that he was getting out of bed and he fell, hitting his right arm patient denies losing consciousness, presyncopal symptoms also denies hitting his head. Patient continues to complain of weakness in the right leg, reports that his right arm weakness has improved, no drooping noted on the face and slurred speech has resolved as well. CT scan of the head negative in ED and CTA head and neck negative as well patient's EKG showed sinus rhythm no acute ST?T changes noted Patient was given loading dose aspirin and Plavix in the ED and teleneuro was consulted who recommended admission and further workup Plan: -Started on aspirin Plavix and atorvastatin -Obtain MRI head stroke protocol -Obtain echocardiogram with bubble study -Will keep patient euglycemic and euthermic -Elevate head of bed 30 degrees -Bedside swallow screen -Speech therapy and physical therapy referral -Neurology consulted, appreciate recommendations -Neurocheck every 4 hours -Telemetry monitoring -Permissive hypertension for 24 hours - Follow lipid panel, hemoglobin A1c and TSH in a.m. #SMART syndrome #History of seizures atient reports extensive history of seizure workup in the past, reports having craniotomy done as well. Patient does have Port-A-Cath intact on right side of the chest from CAMPOS therapy in the past. Otherwise patient denied any seizure or seizure-like activity, patient does have complicated complex seizure history. Per patient's family and patient it is unlikely he had a seizure. -Resume home dose oxcarbazepine, phenytoin and topiramate -Seizure precautions -Consulted neurology, appreciate recommendations #Lung cancer with brain metastasis in remission, by history Lung cancer with metastasis to brain in remission status postradiation and surgical therapy #Benign prostate hypertrophy #Hypertension - Resume home dose Flomax - Allow permissive hypertension for now #Normocytic normochromic anemia #Leukocytosis - Follow CBC in a.m. DVT prophylaxis: Heparin prophylaxis GI prophylaxis: Not indicated Diet: N.p.o., pending swallow screen Lines: Peripheral IV Code status: DNR/DNI Case discussed with Attending Dr. Parada. Dale James PGY1 Disclaimer: This note was dictated by speech recognition. Minor errors in air press operator may be present due to voice recognition software. Attending Provider Attestation/Addendum I reviewed labs, imaging, EKG, home medications and prior available records. Face to face evaluation was performed by me. I have personally examined the patient and discussed assessment and plan with the IM team. I reviewed the resident note and agree with the plan with exceptions as below. Right-sided weakness Slurred speech History of CVA History of seizure disorder Smart syndrome History of lung cancer with brain metastasis s/p radiation Leukocytosis Neurosymptoms can be in the setting of TIA versus new CVA versus complicated migraine versus exacerbation of Smart syndrome CT head is negative for acute changes CTA is negative for major occlusion Consulted teleneurology: Recommended aspirin and Plavix Allow permissive hypertension Follow-up brain MRI Follow-up echocardiogram Inpatient neurology consulted Resume seizure medications
--- NOTE | 2024-12-31 16:55 | PC.NURSE ---
ATTEMPTED TO CALL REPORT TO JESSICA REESE @ [facility]; JESSICA REESE NOT AVAILABLE FOR SBAR REPORT AT THIS TIME.
--- NOTE | 2024-12-31 18:42 | PC.NURSE ---
Patient arrived to unit via gurney per ED HUGH Garnett. Patient awake, alert and oriented with no signs of acute distress.
[2024-12-31] MEDS: ATORVASTATIN CALCIUM 20 MG TABLET 80 MG PO (21:04)
[2024-12-31] MEDS: TOPIRAMATE 25 MG TABLET PO (21:04)
[2024-12-31] MEDS: PHENYTOIN 100 MG CAPSR 300 MG PO (21:04)
[2024-12-31] MEDS: HEPARIN SOD INJ 5000 UNIT/ML VIAL SC (21:05)
[2024-12-31] MEDS: OXCARBazepine 150 MG TABLET (NON-FORMULARY) 900 MG PO (21:05)
[2025-01-01] VITALS (9 sets, daily range): BP systolic 109–145; BP diastolic 70–94; PULSE 53–83; RESP 12–97; TEMP 36.2–36.7; O2SAT 93–98; BMI 24.1; BMI 11.0
[2025-01-01] MEDS: POTASSIUM CHLORIDE 20 mEq TABCR 40 MEQ PO (03:05)
[2025-01-01] MEDS: Magnesium Sulfate 2 GM Ivpb 2 GM/50 ML BAG IV (03:06)
[2025-01-01 05:55] LABS: Basophils # (Auto) 0.1 Thou/mm3 (0.0-0.2); Basophils % (Auto) 1 % (0-2.5); Eosinophils # (Auto) 0.2 Thou/mm3 (0.0-0.5); Eosinophils % (Auto) 2 % (0-10); Hematocrit 39.7 % (41.0-53.0); Hemoglobin 13.6 g/dL (13.5-16.0); Immature Granulocytes % (Auto) 0 % (0-0); Immature Granulocytes Auto 0.02 Thou/mm3 (0.00-0.00); Lymphocytes # (Auto) 2.3 Thou/mm3 (1.0-4.8); Lymphocytes % (Auto) 30 % (10-50); Mean Corpuscular HGB Conc 34.3 g/dl (31.0-37.0); Mean Corpuscular Hemoglobin 28.9 pg (25.0-35.0); Mean Corpuscular Volume 84 fL (80-100); Monocytes # (Auto) 0.8 Thou/mm3 (0.0-0.8); Monocytes % (Auto) 10 % (0-12); Neutrophils # (Auto) 4.4 Thou/mm3 (1.8-7.7); Neutrophils % (Auto) 57 % (37-80); Nucleated Red Blood Cell % 0 /100 WBC (0); Platelet Count 310 Thou/mm3 (140-440); Red Blood Count 4.71 Miln/mm3 (4.50-5.90); White Blood Count 7.7 Thou/mm3 (3.8-10.6)
[2025-01-01] MEDS: HEPARIN SOD INJ 5000 UNIT/ML VIAL SC ×3 (06:01→21:33)
[2025-01-01 06:05] LABS: Glucose Estimated Average 105 mg/dL (80-131); Hemoglobin A1C 5.3 % Hgb (4.8-6.0)
[2025-01-01 06:29] LABS: Alanine Aminotransferase < 7 U/L (10-49); Albumin, Serum 4.5 gm/dL (3.4-4.8); Albumin/Globulin Ratio 1.9 (1.2-2.2); Alkaline Phosphatase 126 U/L (46-116); Anion Gap 9 (7-16); Aspartate Amino Transferase 10 U/L (0-34); BUN/Creatinine Ratio 10 Ratio (12-20); Bilirubin,Total 0.6 mg/dL (0.3-1.2); Blood Urea Nitrogen 7 mg/dL (9-23); Calcium 9.1 mg/dL (8.3-10.6); Calcium (Corrected) 9.1 mg/dL (8.5-10.1); Carbon Dioxide 23.1 mMol/L (20.0-31.0); Cardiac Risk Estimate 2.4 RATIO (4.0-6.7); Chloride 105 mMol/L (98-107); Cholesterol 185 mg/dL (132-200); Creatinine (Component) 0.7 mg/dL (0.6-1.3); Estimated Creatinine Clearance 103.1 mL/min (>60); Globulin 2.4 gm/dL (2.3-3.5); Glucose 97 mg/dL (74-106); HDL Cholesterol 78 mg/dL (40-60); LDL Cholesterol,Calculated 90 mg/dL (0-130); Magnesium 2.4 mg/dL (1.6-2.6); Osmolality,Calculated 271 (275-295); Phosphorous 3.5 mg/dL (2.4-5.1); Potassium 4.3 mMol/L (3.4-5.1); Sodium 137 mMol/L (136-145); Thyroid Stimulating Hormone 2.18 uIU/mL (0.55-4.78); Total Protein 6.9 gm/dL (5.7-8.2); Triglycerides 84 mg/dL (30-150); eGFR > 60 See Note
[2025-01-01] MEDS: OXCARBazepine 150 MG TABLET (NON-FORMULARY) 900 MG PO ×2 (08:39→20:33)
[2025-01-01] MEDS: TOPIRAMATE 25 MG TABLET PO ×2 (08:39→20:33)
[2025-01-01] MEDS: TAMSULOSIN HCL 0.4 MG CAPSULE PO (08:39)
[2025-01-01] MEDS: ASPIRIN EC 81 MG TABEC PO (08:39)
[2025-01-01] MEDS: CLOPIDOGREL BISULFATE 75 MG TABLET PO (08:39)
--- NOTE | 2025-01-01 10:27 | PCS.ST ---
Follow up note: Pending Echo and Dr. Wood's recommendations.
--- NOTE | 2025-01-01 11:51 | ECHO_ITS ---
Transthoracic Echo Report Ht (in): 68 Wt (lb): 167 Exam Location: Portable Status: Inpatient Hand I Cutter: GABRIELA Field^^^^ Indications: Procedure Performed: BP: / HR: MEASUREMENTS (Male / Female) Normal Values 2D ECHO LV Diastolic Diameter PLAX 5.9 cm 4.2 - 5.9 / 3.9 - 5.3 cm LV Systolic Diameter PLAX 4.5 cm IVS Diastolic Thickness 0.6 cm 0.6 - 1.0 / 0.6 - 0.9 cm LVPW Diastolic Thickness 0.8 cm 0.6 - 1.0 / 0.6 - 0.9 cm LV Relative Wall Thickness 0.2 LVOT Diameter 2.0 cm Aortic Root Diameter 3.6 cm LA Systolic Diameter LX 3.5 cm 3.0 - 4.0 / 2.7 - 3.8 cm LV Ejection Fraction MOD BP 37.9 % >= 55 % LV Ejection Fraction MOD 4C 41.3 % LV Ejection Fraction 4C AL 43.1 % LV Ejection Fraction MOD 2C 42.6 % LV Ejection Fraction 2C AL 43.3 % LA Volume Index 45.0 cm?/m? 16 - 28 cm?/m? DOPPLER AV Peak Velocity 125.0 cm/s AV Peak Gradient 6.3 mmHg AV Mean Gradient 4.0 mmHg AV Velocity Time Integral 25.6 cm AI Peak Velocity 192.5 cm/s AI Peak Gradient 14.8 mmHg AI Pressure Half Time 955.5 ms LVOT Peak Velocity 69.5 cm/s LVOT Peak Gradient 1.9 mmHg LVOT Velocity Time Integral 20.3 cm AV Area Cont Eq vti 2.5 cm? AV Area Cont Eq pk 1.7 cm? MV Peak Velocity 105.0 cm/s MV Peak Gradient 4.4 mmHg MV Mean Velocity 46.0 cm/s MV Mean Gradient 1.0 mmHg MV Area PHT 2.2 cm? Mitral E Point Velocity 50.1 cm/s Mitral A Point Velocity 96.7 cm/s Mitral E to A Ratio 0.5 LV E' Lateral Velocity 6.4 cm/s Mitral E to LV E' Lateral Ratio 7.8 LV E' Septal Velocity 5.6 cm/s Mitral E to LV E' Septal Ratio 9.0 TR Peak Velocity 225.0 cm/s TR Peak Gradient 20.3 mmHg PV Peak Velocity 91.8 cm/s PV Peak Gradient 3.4 mmHg RVOT Peak Velocity 53.2 cm/s FINDINGS Left Ventricle Left ventricle is dilated measuring 6 cm end-diastolic diameter with moderate global hypokinesis with moderate to severe left ventricular systolic dysfunction ejection fraction approximately 35 to 40%. Findings are consistent with dilated cardiomyopathy there is also possible evidence of noncompaction especially in the lateral wall segments. Right Ventricle The right ventricle is normal in size and systolic function. The estimated right ventricular systolic pressure, 30 mmHg. Left Atrium Mildly increased left atrial volume 45 mL/m?. Right Atrium The right atrium is normal by two-dimensional imaging, color flow and Doppler imaging with no structural abnormalities, no thrombus formation present. Atrial Septum The interatrial septum is normal to color flow Doppler and agitated saline imaging. o Aorta The aorta is normal by two-dimensional, color flow and Doppler interrogation. Mitral Valve Mild mitral annular calcification. Mild mitral regurgitation. Aortic Valve Aortic valve sclerosis. Trace to mild aortic valve regurgitation. Tricuspid Valve There is mild tricuspid valve regurgitation. Pulmonic Valve Trivial pulmonic valve regurgitation. Vessels The pulmonary artery appears normal. The inferior vena cava pulmonary and hepatic veins appear normal. Pericardium The pericardium is normal by two-dimensional imaging. There is no significant pericardial effusion. 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 Moderate to severe LV dysfunction ejection fraction of 35 to 40%. IAS is normal to color flow Doppler and agitated saline imaging. Bubble study is negative for intracardiac shunting Normal right atrium right ventricle normal RV function normal RA pressure and RV pressures No evidence of cardiac thrombi Mild dilation left atrium Aortic valve sclerosis no stenosis Mild mitral thickening annulus calcification mild mitral regurgitation. Mild tricuspid valve regurgitation with normal PA pressures Lisa Moreno (Electronically Signed) Final Date: 01 January 2025 16:52
--- NOTE | 2025-01-01 11:58 | ESPR_ITS ---
Documentation for date of: 01/01/25 Subjective Subjective Interval history: Patient seen and examined at bedside. MRI negative for acute CVA Pending neurology recommendations and echocardiogram. Check patient will work with physical therapy today Anticipate discharge in next 24 hours. Exam Vital Signs Temp Pulse Resp BP Pulse Ox O2 Del Method 97.6 F 77 21 H 135/83 H 98 Room Air 01/01/25 11:53 01/01/25 11:53 01/01/25 11:53 01/01/25 11:53 01/01/25 11:53 01/01/25 11:53 Narrative Exam Physical Exam General: Awake and in no acute distress. Conversational and non-toxic appearing. Somewhat anxious. HEENT: Normocephalic, atraumatic, mucous membranes moist. Port-A-Cath noted right chest. Heart: Regular rate and rhythm, no murmurs. Lungs: Clear to auscultation with no wheezing or crackles. Abdomen: Soft, nondistended, nontender, positive bowel sounds. ?No guarding or rebound tenderness. Neurologic: Alert and oriented x3, gross neurological deficit noted, significant right leg weakness though patient is able to move the leg, mild weakness noted right upper arm. Extremities: No edema. Positive for multiple ecchymosis on body, fresh injury and bruise on right upper arm. Skin: No rash or ecchymoses. Objective Labs 01/01/25 05:06 01/01/25 05:06 Labs: Laboratory Results - last 24 hr 01/01/25 05:06 WBC 7.7 RBC 4.71 Hgb 13.6 Hct 39.7 L MCV 84 MCH 28.9 MCHC 34.3 RDW Std Deviation 45.0 H Plt Count 310 D Neut % (Auto) 57 Lymph % (Auto) 30 [place] % (Auto) 10 Eos % (Auto) 2 Baso % (Auto) 1 Neut # (Auto) 4.4 Lymph # (Auto) 2.3 [place] # (Auto) 0.8 Eos # (Auto) 0.2 Baso # (Auto) 0.1 Immature Gran # (Auto) 0.02 H Absolute Nucleated RBC 0.00 Immature Gran % 0 Nucleated RBC % 0 Sodium 137 Potassium 4.3 D Chloride 105 Carbon Dioxide 23.1 Anion Gap 9 BUN 7 L Creatinine 0.7 Estim Creat Clear Calc 103.1 eGFR > 60 BUN/Creatinine Ratio 10 L Glucose [address] Glu mg/dL 105 Hemoglobin A1c 5.3 Calculated Osmolality 271 L Calcium 9.1 Corrected Calcium 9.1 Phosphorus 3.5 Magnesium 2.4 Total Bilirubin 0.6 AST 10 ALT < 7 L Alkaline Phosphatase 126 H Total Protein 6.9 Albumin 4.5 Globulin 2.4 Albumin/Globulin Ratio 1.9 Triglycerides 84 Cholesterol 185 LDL Cholesterol, Calc 90 HDL Cholesterol 78 H Cholesterol/HDL Ratio 2.4 L TSH 2.18 Quality Measures Quality Measures stroke Suspected type of Stroke: Unknown at this time (Seizure vs stroke ) Last known well (date): 12/30/24 Last known well (time): 21:00 Tenecteplase given: Reason(s) Tenecteplase not given: Outside the time window not given Rehab services: PT evaluation ordered and Speech Language Pathology eval ordered VTE Prophylaxis: pharmaceutical Antithrombotic by day 2:: ordered Statin ordered: >75 y/o moderate or high intensity dose Anticoagulation ordered for A-fib or flutter (current or hx): not indicated Assessment & Plan Assessment Current Active Medications: Generic Name Dose Route Start Last Admin Trade Name Freq PRN Reason Stop Dose Admin Acetaminophen 650 mg 12/31/24 11:47 Acetaminophen 325 Mg Tablet PO 01/30/25 11:46 Q6H PRN Mild Pain (1-3) & Fever >100.4 Aspirin 81 mg 01/01/25 09:00 01/01/25 08:39 Aspirin Ec 81 Mg Tabec PO 01/31/25 08:59 81 mg QDAY EDYTA Administration Atorvastatin Calcium 80 mg 12/31/24 21:00 12/31/24 21:04 Atorvastatin Calcium 20 Mg Tablet PO 01/30/25 20:59 80 mg HS EDYTA Administration Clopidogrel Bisulfate 75 mg 01/01/25 09:00 01/01/25 08:39 Clopidogrel Bisulfate 75 Mg Tablet PO 01/31/25 08:59 75 mg QDAY EDYTA Administration Heparin Sodium (Porcine) 5,000 unit 12/31/24 22:00 01/01/25 06:01 Heparin Sod Inj 5000 Unit/Ml Vial SC 01/14/25 21:59 5,000 unit Q8HR EDYTA Administration Ondansetron HCl 4 mg 12/31/24 08:53 Ondansetron Inj 2 Mg/Ml Inj 2 Ml IV 01/30/25 08:52 Q4HR PRN NAUSEA OR VOMITING Oxcarbazepine 900 mg 12/31/24 21:00 01/01/25 08:39 Oxcarbazepine 150 Mg Tablet (Non-Formulary) PO 01/30/25 20:59 900 mg BID EDYTA Administration Phenytoin 300 mg 12/31/24 21:00 12/31/24 21:04 Phenytoin 100 Mg Capsr PO 01/30/25 20:59 300 mg HS EDYTA Administration Sennosides 1 tab 12/31/24 11:47 Senna Tablet PO 01/30/25 11:46 QDAY PRN constipation Protocol Tamsulosin HCl 0.4 mg 01/01/25 09:00 01/01/25 08:39 Tamsulosin Hcl 0.4 Mg Capsule PO 01/31/25 08:59 0.4 mg QDAY EDYTA Administration Topiramate 25 mg 12/31/24 21:00 01/01/25 08:39 Topiramate 25 Mg Tablet PO 01/30/25 20:59 25 mg BID EDYTA Administration Plan Assessment and plan: Summary: Mr. 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 Patient admitted to the hospital for further CVA workup. #CVA workup #History of CVA in 2019 Patient experienced slurred speech and difficulty eating yesterday, followed by weakness trouble walking earlier today, patient reported that he was getting out of bed and he fell, hitting his right arm patient denies losing consciousness, presyncopal symptoms also denies hitting his head. Patient continues to complain of weakness in the right leg, reports that his right arm weakness has improved, no drooping noted on the face and slurred speech has resolved as well. CT scan of the head negative in ED and CTA head and neck negative as well patient's EKG showed sinus rhythm no acute ST?T changes noted Patient was given loading dose aspirin and Plavix in the ED and teleneuro was consulted who recommended admission and further workup MR brain: Negative for CVA Lipid panel cholesterol 185, LDL 90, HDL 78, triglycerides 84, hemoglobin A1c 5.3 and TSH 2.18 Plan: -Continue aspirin Plavix and atorvastatin -Follow echocardiogram with bubble study -Will keep patient euglycemic and euthermic -Elevate head of bed 30 degrees -Bedside swallow screen -Speech therapy and physical therapy referral -Neurology consulted, appreciate recommendations -Neurocheck every 4 hours -Telemetry monitoring #SMART syndrome #History of seizures atient reports extensive history of seizure workup in the past, reports having craniotomy done as well. Patient does have Port-A-Cath intact on right side of the chest from [facility] therapy in the past. Otherwise patient denied any seizure or seizure-like activity, patient does have complicated complex seizure history. Per patient's family and patient it is unlikely he had a seizure. -Resume home dose oxcarbazepine, phenytoin and topiramate -Seizure precautions -Consulted neurology, appreciate recommendations #Lung cancer with brain metastasis in remission, by history Lung cancer with metastasis to brain in remission status postradiation and surgical therapy #Benign prostate hypertrophy #Hypertension - Resume home dose Flomax - Monitor blood pressure #Normocytic normochromic anemia #Leukocytosis - Follow CBC in a.m. DVT prophylaxis: Heparin prophylaxis GI prophylaxis: Not indicated Diet: N.p.o., pending swallow screen Lines: Peripheral IV Code status: DNR/DNI Case discussed with Attending Dr. Parada. Dale James PGY1 Disclaimer: This note was dictated by speech recognition. Minor errors in radiology director may be present due to voice recognition software. Attending Provider Attestation/Addendum I reviewed labs, imaging, EKG, home medications and prior available records. Face to face evaluation was performed by me. I have personally examined the patient and discussed assessment and plan with the IM team. I reviewed the resident note and agree with the plan with exceptions as below. Right-sided weakness Slurred speech History of CVA History of seizure disorder Smart syndrome History of lung cancer with brain metastasis s/p radiation Leukocytosis Neurosymptoms can be in the setting of TIA versus new CVA versus complicated migraine versus exacerbation of Smart syndrome CT head is negative for acute changes CTA is negative for major occlusion Consulted teleneurology: Recommended aspirin and Plavix. Continue atorvastatin BP is stable Follow-up brain MRI: Showed no acute changes Follow-up echocardiogram Inpatient neurology consulted Resume seizure medications Follow-up PT evaluation
--- NOTE | 2025-01-01 16:06 | PC.SS ---
SS met with pt and spoke to his dtrValeri by phone to inform them both physicians are recommending SNF placement. Pt and dtr are agreeable. Daughter's choice is [facility]. SS has sent inquiry using [employer].
--- NOTE | 2025-01-01 16:18 | PC.SS ---
PAS[facility] assessment is completed.
[2025-01-01] MEDS: PHENYTOIN 100 MG CAPSR 300 MG PO (20:32)
[2025-01-01] MEDS: ATORVASTATIN CALCIUM 20 MG TABLET 80 MG PO (20:32)
[2025-01-02] VITALS (7 sets, daily range): BP systolic 127–144; BP diastolic 76–95; PULSE 58–275; RESP 16–96; TEMP 36.1–36.6; O2SAT 94–97; BMI 24.9
[2025-01-02] MEDS: HEPARIN SOD INJ 5000 UNIT/ML VIAL SC ×3 (05:41→21:21)
[2025-01-02 06:04] LABS: Basophils # (Auto) 0.1 Thou/mm3 (0.0-0.2); Basophils % (Auto) 1 % (0-2.5); Eosinophils # (Auto) 0.2 Thou/mm3 (0.0-0.5); Eosinophils % (Auto) 2 % (0-10); Hematocrit 38.4 % (41.0-53.0); Hemoglobin 13.1 g/dL (13.5-16.0); Immature Granulocytes % (Auto) 0 % (0-0); Immature Granulocytes Auto 0.02 Thou/mm3 (0.00-0.00); Lymphocytes # (Auto) 2.8 Thou/mm3 (1.0-4.8); Lymphocytes % (Auto) 38 % (10-50); Mean Corpuscular HGB Conc 34.1 g/dl (31.0-37.0); Mean Corpuscular Hemoglobin 28.7 pg (25.0-35.0); Mean Corpuscular Volume 84 fL (80-100); Monocytes # (Auto) 0.8 Thou/mm3 (0.0-0.8); Monocytes % (Auto) 11 % (0-12); Neutrophils # (Auto) 3.6 Thou/mm3 (1.8-7.7); Neutrophils % (Auto) 48 % (37-80); Nucleated Red Blood Cell % 0 /100 WBC (0); Platelet Count 312 Thou/mm3 (140-440); RDW Standard Deviation 44.8 fL (35.1-43.9); Red Blood Count 4.56 Miln/mm3 (4.50-5.90); White Blood Count 7.5 Thou/mm3 (3.8-10.6)
[2025-01-02 06:47] LABS: Alanine Aminotransferase < 7 U/L (10-49); Albumin, Serum 4.3 gm/dL (3.4-4.8); Alkaline Phosphatase 115 U/L (46-116); Anion Gap 9 (7-16); Aspartate Amino Transferase < 10 U/L (0-34); BUN/Creatinine Ratio 21 Ratio (12-20); Bilirubin,Total 0.4 mg/dL (0.3-1.2); Blood Urea Nitrogen 15 mg/dL (9-23); Calcium 8.9 mg/dL (8.3-10.6); Calcium (Corrected) 8.9 mg/dL (8.5-10.1); Carbon Dioxide 23.5 mMol/L (20.0-31.0); Chloride 106 mMol/L (98-107); Creatinine (Component) 0.7 mg/dL (0.6-1.3); Estimated Creatinine Clearance 103.1 mL/min (>60); Globulin 2.2 gm/dL (2.3-3.5); Glucose 99 mg/dL (74-106); Osmolality,Calculated 276 (275-295); Phosphorous 3.5 mg/dL (2.4-5.1); Sodium 138 mMol/L (136-145); Total Protein 6.5 gm/dL (5.7-8.2); eGFR > 60 See Note
[2025-01-02] MEDS: TAMSULOSIN HCL 0.4 MG CAPSULE PO (08:53)
[2025-01-02] MEDS: TOPIRAMATE 25 MG TABLET PO ×2 (08:53→21:18)
[2025-01-02] MEDS: ASPIRIN EC 81 MG TABEC PO (08:53)
[2025-01-02] MEDS: OXCARBazepine 150 MG TABLET (NON-FORMULARY) 900 MG PO ×2 (08:53→21:19)
[2025-01-02] MEDS: CLOPIDOGREL BISULFATE 75 MG TABLET PO (08:53)
[2025-01-02] MEDS: SENNA TABLET 1 TAB PO (09:07)
--- NOTE | 2025-01-02 11:48 | ESPR_ITS ---
Documentation for date of: 01/02/25 Subjective Subjective Interval history: Patient examined at bedside. MRI was negative for stroke workup. Patient decided not to follow-up neurologist Dr. Christina, wants to see a different neurologist. Informed patient that there is only one neurologist at this facility, patient verbalized understanding. 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 Moderate to severe LV dysfunction, EF of 35 to 40% Bubble study negative, normal right atrium right ventricle normal RV function normal RA pressure and RV pressures No evidence of cardiac thrombi Mild dilation left atrium Aortic valve sclerosis no stenosis Mild mitral thickening annulus calcification mild mitral regurgitation. Mild tricuspid valve regurgitation with normal PA pressures Cardiology consulted for further workup and recommendations. Exam Vital Signs Temp Pulse Resp BP Pulse Ox O2 Del Method 97.0 F 66 19 136/82 H 96 Room Air 01/02/25 08:00 01/02/25 08:00 01/02/25 08:00 01/02/25 08:00 01/02/25 08:00 01/02/25 08:00 Narrative Exam Physical Exam General: Awake and in no acute distress. Conversational and non-toxic appearing. Somewhat anxious. HEENT: Normocephalic, atraumatic, mucous membranes moist. Port-A-Cath noted right chest. Heart: Regular rate and rhythm, no murmurs. Lungs: Clear to auscultation with no wheezing or crackles. Abdomen: Soft, nondistended, nontender, positive bowel sounds. ?No guarding or rebound tenderness. Neurologic: Alert and oriented x3, gross neurological deficit noted, significant right leg weakness though patient is able to move the leg, mild weakness noted right upper arm. Extremities: No edema. Positive for multiple ecchymosis on body, fresh injury and bruise on right upper arm. Skin: No rash or ecchymoses. Objective Labs 01/04/25 04:37 01/04/25 04:37 Labs: Laboratory Results - last 24 hr 01/02/25 04:30 WBC 7.5 RBC 4.56 Hgb 13.1 L Hct 38.4 L MCV 84 MCH 28.7 MCHC 34.1 RDW Std Deviation 44.8 H Plt Count 312 Neut % (Auto) 48 Lymph % (Auto) 38 [place] % (Auto) 11 Eos % (Auto) 2 Baso % (Auto) 1 Neut # (Auto) 3.6 Lymph # (Auto) 2.8 [place] # (Auto) 0.8 Eos # (Auto) 0.2 Baso # (Auto) 0.1 Immature Gran # (Auto) 0.02 H Absolute Nucleated RBC 0.00 Immature Gran % 0 Nucleated RBC % 0 Sodium 138 Potassium 4.0 Chloride 106 Carbon Dioxide 23.5 Anion Gap 9 BUN 15 Creatinine 0.7 Estim Creat Clear Calc 103.1 eGFR > 60 BUN/Creatinine Ratio 21 H Glucose 99 Calculated Osmolality 276 Calcium 8.9 Corrected Calcium 8.9 Phosphorus 3.5 Magnesium 2.0 Total Bilirubin 0.4 AST < 10 ALT < 7 L Alkaline Phosphatase 115 Total Protein 6.5 Albumin 4.3 Globulin 2.2 L Albumin/Globulin Ratio 2.0 Quality Measures Quality Measures stroke Suspected type of Stroke: Unknown at this time (Seizure vs stroke ) Last known well (date): 12/30/24 Last known well (time): 21:00 Tenecteplase given: Reason(s) Tenecteplase not given: Outside the time window not given Rehab services: PT evaluation ordered and Speech Language Pathology eval ordered VTE Prophylaxis: pharmaceutical Antithrombotic by day 2:: ordered Statin ordered: >75 y/o moderate or high intensity dose Anticoagulation ordered for A-fib or flutter (current or hx): not indicated Assessment & Plan Assessment Current Active Medications: Generic Name Dose Route Start Last Admin Trade Name Freq PRN Reason Stop Dose Admin Acetaminophen 650 mg 12/31/24 11:47 Acetaminophen 325 Mg Tablet PO 01/30/25 11:46 Q6H PRN Mild Pain (1-3) & Fever >100.4 Aspirin 81 mg 01/01/25 09:00 01/02/25 08:53 Aspirin Ec 81 Mg Tabec PO 01/31/25 08:59 81 mg QDAY EDYTA Administration Atorvastatin Calcium 80 mg 12/31/24 21:00 01/01/25 20:32 Atorvastatin Calcium 20 Mg Tablet PO 01/30/25 20:59 80 mg HS EDYTA Administration Clopidogrel Bisulfate 75 mg 01/01/25 09:00 01/02/25 08:53 Clopidogrel Bisulfate 75 Mg Tablet PO 01/31/25 08:59 75 mg QDAY EDYTA Administration Heparin Sodium (Porcine) 5,000 unit 12/31/24 22:00 01/02/25 05:41 Heparin Sod Inj 5000 Unit/Ml Vial SC 01/14/25 21:59 5,000 unit Q8HR EDYTA Administration Ondansetron HCl 4 mg 12/31/24 08:53 Ondansetron Inj 2 Mg/Ml Inj 2 Ml IV 01/30/25 08:52 Q4HR PRN NAUSEA OR VOMITING Oxcarbazepine 900 mg 12/31/24 21:00 01/02/25 08:53 Oxcarbazepine 150 Mg Tablet (Non-Formulary) PO 01/30/25 20:59 900 mg BID EDYTA Administration Phenytoin 300 mg 12/31/24 21:00 01/01/25 20:32 Phenytoin 100 Mg Capsr PO 01/30/25 20:59 300 mg HS EDYTA Administration Sennosides 1 tab 12/31/24 11:47 01/02/25 09:07 Senna Tablet PO 01/30/25 11:46 1 tab QDAY PRN Administration constipation Protocol Tamsulosin HCl 0.4 mg 01/01/25 09:00 01/02/25 08:53 Tamsulosin Hcl 0.4 Mg Capsule PO 01/31/25 08:59 0.4 mg QDAY EDYTA Administration Topiramate 25 mg 12/31/24 21:00 01/02/25 08:53 Topiramate 25 Mg Tablet PO 01/30/25 20:59 25 mg BID EDYTA Administration Plan Assessment and plan: Summary: Mr. 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 Patient admitted to the hospital for further CVA workup. #CVA workup #History of CVA in 2019 Patient experienced slurred speech and difficulty eating yesterday, followed by weakness trouble walking earlier today, patient reported that he was getting out of bed and he fell, hitting his right arm patient denies losing consciousness, presyncopal symptoms also denies hitting his head. Patient continues to complain of weakness in the right leg, reports that his right arm weakness has improved, no drooping noted on the face and slurred speech has resolved as well. CT scan of the head negative in ED and CTA head and neck negative as well patient's EKG showed sinus rhythm no acute ST?T changes noted Patient was given loading dose aspirin and Plavix in the ED and teleneuro was consulted who recommended admission and further workup MR brain: Negative for CVA Lipid panel cholesterol 185, LDL 90, HDL 78, triglycerides 84, hemoglobin A1c 5.3 and TSH 2.18 Patient decided not to follow-up neurologist Dr. Christina. 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 Moderate to severe LV dysfunction, EF of 35 to 40% Bubble study negative, normal right atrium right ventricle normal RV function normal RA pressure and RV pressures No evidence of cardiac thrombi Mild dilation left atrium Aortic valve sclerosis no stenosis Mild mitral thickening annulus calcification mild mitral regurgitation. Mild tricuspid valve regurgitation with normal PA pressures Plan: -Cardiology consulted for further workup and recommendations. #SMART syndrome #History of seizures atient reports extensive history of seizure workup in the past, reports having craniotomy done as well. Patient does have Port-A-Cath intact on right side of the chest from [facility] therapy in the past. Otherwise patient denied any seizure or seizure-like activity, patient does have complicated complex seizure history. Per patient's family and patient it is unlikely he had a seizure. -Resume home dose oxcarbazepine, phenytoin and topiramate -Seizure precautions #Lung cancer with brain metastasis in remission, by history Lung cancer with metastasis to brain in remission status postradiation and surgical therapy #Benign prostate hypertrophy #Hypertension - Resume home dose Flomax - Monitor blood pressure #Normocytic normochromic anemia #Leukocytosis - Follow CBC in a.m. DVT prophylaxis: Heparin prophylaxis GI prophylaxis: Not indicated Diet: N.p.o., pending swallow screen Lines: Peripheral IV Code status: DNR/DNI Case discussed with Attending Dr. Deutsch. Dale James PGY1 Disclaimer: This note was dictated by speech recognition. Minor errors in shop welder may be present due to voice recognition software. Attending Provider Attestation/Addendum Patient seen and examined at bedside with resident. Agree with assessment and plan as dictated above. Pending further recommendations from cardiology after echo findings as noted. Sj Deutsch MD
--- NOTE | 2025-01-02 17:29 | ESCONSULT_ITS ---
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 Patient has systolic heart failure well compensated. Evaluated the patient with resident physician PGY [address] Dr. Yohana Campbell MD agree with the treatment plan recommendation will monitor the patient closely as an outpatient following discharge as well. 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 Patient reports extensive history of seizure workup in the past including having a craniotomy, felt that this episode was much different than his seizures. Patient was seen by teleneurologist in the ED who recommended admission for further workup to rule out new stroke however patient was outside of time window for thromolytic therapy. Patient does have Port-A-Cath intact on right side of the chest for chemotherapy in the past. 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 He denies any history of palpitations, skipped beats, or feeling of heart beating out of the chest and denies any chest pain, pressure, shortness of breath, leg swelling, orthopnea, or paroxysmal nocturnal dyspnea. Review of the data shows mildly elevated BP 130-140s systolic over 80-90s diastolic, HR ranging 50-80s, he has been afebrile and saturating well on room air. Labs have been normal including CBC, CMP, kidney functions are normal, A1c was 5.3, lipid panel showed total cholesterol 185, triglycerides 84, LDL 90, and HDL 78. EKG showed normal sinus rhythm at a rate of 73 and findings consistent with LVH. UA was negative but Utox was positive for marijuana. Head CT and head/neck CT were negative for any abnormalities. MRI/MRA of the brain was negative for any new infarct, showed old large infarct in the posterior left occipital lobe. Transthoracic echo showed findings consistent with dilated cardiomyopathy with global moderate hypokinesis, moderate to severe LV dysfunction with EF 35-40% but negative bubble study and no evidence of thrombi. Cardiology was consulted for new diagnosis of heart failure with reduced EF. 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, lung cancer with metastasis to brain in remission status postradiation and surgical therapy, benign prostate hypertrophy, history of CVA in 2019 and hypertension PSHx: Craniotomy, one third lung resection, brain metastatic mass surgery, left hip replacement and right hip fracture Allergies: No known allergies Social history: -Smoking: Positive for 40 smoking years in the past -Alcohol Use: Positive for occasional alcohol use in the past -Illicit Drug Use: Positive for illicit drug use in the past, use of marijuana currently -Occupation: Patient used to work at [employer] for about 20 years in [place] and 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 Conversational and non-toxic appearing, somewhat particular and irritable. HEENT: Normocephalic, atraumatic, mucous membranes moist. No JVD. Heart: Regular rate and rhythm, normal S1 and S2, no murmurs. Port-A-Cath on the right chest intact. Lungs: Clear to auscultation with no wheezing or crackles. Abdomen: Soft, nondistended, nontender, positive bowel sounds. ?No guarding or rebound tenderness. Neurologic: Alert and oriented x3, right sided leg weakness about 3/5 strength. Extremities: No edema. Skin: Several upper arm ecchymoses. Results Labs 01/03/25 05:09 01/03/25 05:09 Labs: Short CBC 01/02/25 Range/Units 04:30 WBC 7.5 (3.8-10.6) Thou/mm3 Hgb 13.1 L (13.5-16.0) g/dL Hct 38.4 L (41.0-53.0) % Plt Count 312 (140-440) Thou/mm3 BMP 01/02/25 04:30 Sodium 138 Potassium 4.0 Chloride 106 Carbon Dioxide 23.5 BUN 15 Creatinine 0.7 Glucose 99 Calcium 8.9 Liver Function 01/02/25 Range/Units 04:30 Total Bilirubin 0.4 (0.3-1.2) mg/dL AST < 10 (0-34) U/L ALT < 7 L (10-49) U/L Alkaline Phosphatase 115 (46-116) U/L Albumin 4.3 (3.4-4.8) gm/dL Quality Measures Quality Measures stroke Suspected type of Stroke: Unknown at this time (Seizure vs stroke ) Last known well (date): 12/30/24 Last known well (time): 21:00 Tenecteplase given: Reason(s) Tenecteplase not given: Outside the time window not given Rehab services: PT evaluation ordered and Speech Language Pathology eval ordered VTE Prophylaxis: pharmaceutical Antithrombotic by day 2:: not indicated (describe) Statin ordered: <75 y/o high intensity dose Anticoagulation ordered for A-fib or flutter (current or hx): not indicated Medications Home Medications and Allergies Home Medications ?Medication ?Instructions ?Recorded ?Confirmed ?Type Phenytoin Sodium Extended * 300 mg PO HS #0 caps 04/1412/31/24 History (DILANTIN *) oxcarbazepine 300 mg tablet 900 mg PO BID #0 tabs 03/2412/31/24 History (Trileptal) tamsulosin 0.4 mg capsule 0.4 mg PO QDAY 05/05/2012/22 History topiramate 25 mg sprinkle capsule 25 mg PO BID Seizure s 11/28/22 12/31/24 History atorvastatin 20 mg tablet 20 mg PO QAM 01/09/23 History Allergies Allergy/AdvReac Type Severity Reaction Status Date / Time No Known Allergies Allergy Verified 11/16/24 10:57 Visit Medications Acetaminophen (Acetaminophen 325 Mg Tablet) 650 mg PO Q6H PRN PRN Reason: Mild Pain (1-3) & Fever >100.4 Stop: 01/30/25 11:46 Aspirin (Aspirin Ec 81 Mg Tabec) 81 mg PO QDAY [facility] Stop: 01/31/25 08:59 Last Admin: 01/02/25 08:53 Dose: 81 mg Atorvastatin Calcium (Atorvastatin Calcium 20 Mg Tablet) 80 mg PO [facility] Stop: 01/30/25 20:59 Last Admin: 01/01/25 20:32 Dose: 80 mg Clopidogrel Bisulfate (Clopidogrel Bisulfate 75 Mg Tablet) 75 mg PO QDAY [facility] Stop: 01/31/25 08:59 Last Admin: 01/02/25 08:53 Dose: 75 mg Heparin Sodium (Porcine) (Heparin Sod Inj 5000 Unit/Ml Vial) 5,000 unit SC Q8HR [facility] Stop: 01/14/25 21:59 Last Admin: 01/02/25 13:39 Dose: 5,000 unit Ondansetron HCl (Ondansetron Inj 2 Mg/Ml Inj 2 Ml) 4 mg IV Q4HR PRN PRN Reason: NAUSEA OR VOMITING Stop: 01/30/25 08:52 Oxcarbazepine (Oxcarbazepine 150 Mg Tablet (Non-Formulary)) 900 mg PO BID [facility] Stop: 01/30/25 20:59 Last Admin: 01/02/25 08:53 Dose: 900 mg Phenytoin (Phenytoin 100 Mg Capsr) 300 mg PO [facility] Stop: 01/30/25 20:59 Last Admin: 01/01/25 20:32 Dose: 300 mg Sennosides (Senna Tablet) 1 tab PO QDAY PRN; Protocol PRN Reason: constipation Stop: 01/30/25 11:46 Last Admin: 01/02/25 09:07 Dose: 1 tab Tamsulosin HCl (Tamsulosin Hcl 0.4 Mg Capsule) 0.4 mg PO QDAY [facility] Stop: 01/31/25 08:59 Last Admin: 01/02/25 08:53 Dose: 0.4 mg Topiramate (Topiramate 25 Mg Tablet) 25 mg PO BID EDY[facility] Stop: 01/30/25 20:59 Last Admin: 01/02/25 08:53 Dose: 25 mg Discontinued Medications Aspirin (Aspirin 81 Mg Chew) 324 mg PO X1 ONE Stop: 12/31/24 09:33 Last Admin: 12/31/24 09:49 Dose: 324 mg Clopidogrel Bisulfate (Clopidogrel Bisulfate 75 Mg Tablet) 300 mg PO X1 ONE Stop: 12/31/24 09:33 Last Admin: 12/31/24 09:47 Dose: 300 mg Magnesium Sulfate (Magnesium Sulfate Ivpb) 2 gm in 50 mls @ 25 mls/hr IV X1 ONE Stop: 01/01/25 04:37 Last Admin: 01/01/25 03:06 Dose: 25 mls/hr Potassium Chloride (Potassium Chloride 20 Meq Tabcr) 40 meq PO X1 ONE Stop: 01/01/25 02:38 Last Admin: 01/01/25 03:05 Dose: 40 meq Assessment & Plan Plan 63-year-old male with 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 Cardiology was consulted for new diagnosis of heart failure with reduced EF. #New onset HF with reduced EF 35-40%, not currently in exacerbation #Dilated cardiomyopathy Patient presented with stroke-like symptoms, and was ruled out for new stroke based on MRI findings. However echo showed reduced EF from previous reference 11/2022 which had shown EF 45-50% with normal LV function. 01/01/2025 TTE showed dilated cardiomyopathy with suspicious finding for noncompaction cardiomyopathy with moderate global hypokinesis. Moderate to severe LV dysfunction ejection fraction of 35 to 40%. IAS is normal to color flow Doppler and agitated saline imaging. Bubble study is negative for intracardiac shunting Normal right atrium right ventricle normal RV function normal RA pressure and RV pressures No evidence of cardiac thrombi Mild dilation left atrium Aortic valve sclerosis no stenosis Mild mitral thickening annulus calcification mild mitral regurgitation. Mild tricuspid valve regurgitation with normal PA pressures Clinically at this time patient does not appear in heart failure exacerbation. He denies any known past cardiac history, there may be some post-radiation or chemo induced cardiomyopathy given his cancer and treatment history. A1c was 5.3, lipid panel showed total cholesterol 185, triglycerides 84, LDL 90, and HDL 78. Patient does have significant past smoking history including 40-pack years as a risk factor. -Continue with the aspirin and statin -Continue with control of modifiable risk factors -Follow up with Cardiology outpatient after discharge for further workup Rest of conditions to continue current management per primary team: #Possible SMART syndrome exacerbation versus stroke recrudescence #New acute ischemic stroke, ruled out #History of posterior left occipital lobe CVA 2019 #History of SMART syndrome #History of seizure disorder #History of lung cancer with brain metastasis in remission s/p radiation and surgery #History of BPH #History of hypertension #History of normocytic anemia Cardiology will continue to follow. Patient was discussed with the attending, Dr. Fitzgerald. Thank you for allowing us to participate in the care of this patient. Samira Campbell, PGY-2
[2025-01-02] MEDS: PHENYTOIN 100 MG CAPSR 300 MG PO (21:18)
[2025-01-02] MEDS: ATORVASTATIN CALCIUM 20 MG TABLET 80 MG PO (21:18)
[2025-01-02] MEDS: POLYETHYLENE GLYCOL 17 GM PACKET PO (22:21)
[2025-01-03] VITALS (10 sets, daily range): BP systolic 125–133; BP diastolic 79–99; PULSE 64–88; RESP 15–98; TEMP 36.3–36.6; O2SAT 96–97; BMI 24.3
--- NOTE | 2025-01-03 02:11 | PC.NURSE ---
MD Almaraz notified that patient is having frequent PVCs on the monitor. Mostly seeing couplets and occasional trigeminy. I assessed the patient and patient is not complaining of chest pain. Patient is comfortable in bed awake and alert. No new orders given by
[2025-01-03] MEDS: HEPARIN SOD INJ 5000 UNIT/ML VIAL SC ×3 (05:26→23:16)
[2025-01-03 05:55] LABS: Basophils # (Auto) 0.1 Thou/mm3 (0.0-0.2); Basophils % (Auto) 1 % (0-2.5); Eosinophils # (Auto) 0.2 Thou/mm3 (0.0-0.5); Eosinophils % (Auto) 2 % (0-10); Hematocrit 39.6 % (41.0-53.0); Hemoglobin 13.9 g/dL (13.5-16.0); Immature Granulocytes % (Auto) 0 % (0-0); Immature Granulocytes Auto 0.04 Thou/mm3 (0.00-0.00); Lymphocytes # (Auto) 2.3 Thou/mm3 (1.0-4.8); Lymphocytes % (Auto) 23 % (10-50); Mean Corpuscular HGB Conc 35.1 g/dl (31.0-37.0); Mean Corpuscular Hemoglobin 29.6 pg (25.0-35.0); Mean Corpuscular Volume 84 fL (80-100); Monocytes % (Auto) 10 % (0-12); Neutrophils # (Auto) 6.3 Thou/mm3 (1.8-7.7); Neutrophils % (Auto) 64 % (37-80); Nucleated Red Blood Cell % 0 /100 WBC (0); Platelet Count 265 Thou/mm3 (140-440); RDW Standard Deviation 45.2 fL (35.1-43.9); Red Blood Count 4.69 Miln/mm3 (4.50-5.90); White Blood Count 9.8 Thou/mm3 (3.8-10.6)
[2025-01-03 06:35] LABS: Alanine Aminotransferase < 7 U/L (10-49); Albumin, Serum 4.3 gm/dL (3.4-4.8); Albumin/Globulin Ratio 1.7 (1.2-2.2); Alkaline Phosphatase 131 U/L (46-116); Anion Gap 8 (7-16); Aspartate Amino Transferase 15 U/L (0-34); BUN/Creatinine Ratio 15 Ratio (12-20); Bilirubin,Total 0.5 mg/dL (0.3-1.2); Blood Urea Nitrogen 12 mg/dL (9-23); Calcium 8.9 mg/dL (8.3-10.6); Calcium (Corrected) 8.9 mg/dL (8.5-10.1); Carbon Dioxide 24.6 mMol/L (20.0-31.0); Chloride 105 mMol/L (98-107); Creatinine (Component) 0.8 mg/dL (0.6-1.3); Estimated Creatinine Clearance 90.3 mL/min (>60); Globulin 2.6 gm/dL (2.3-3.5); Glucose 98 mg/dL (74-106); Osmolality,Calculated 275 (275-295); Phosphorous 3.7 mg/dL (2.4-5.1); Potassium 4.6 mMol/L (3.4-5.1); Sodium 138 mMol/L (136-145); Total Protein 6.9 gm/dL (5.7-8.2); eGFR > 60 See Note
[2025-01-03] MEDS: TOPIRAMATE 25 MG TABLET PO ×2 (09:22→21:16)
[2025-01-03] MEDS: CLOPIDOGREL BISULFATE 75 MG TABLET PO (09:22)
[2025-01-03] MEDS: ASPIRIN EC 81 MG TABEC PO (09:22)
[2025-01-03] MEDS: TAMSULOSIN HCL 0.4 MG CAPSULE PO (09:22)
[2025-01-03] MEDS: OXCARBazepine 150 MG TABLET (NON-FORMULARY) 900 MG PO ×2 (10:38→23:06)
--- NOTE | 2025-01-03 10:40 | PC.NURSE ---
Patient sinus rhythm with bigeminy. MD James notified. 10:38 on 01/03/25
--- NOTE | 2025-01-03 10:55 | ESDS_ITS ---
<Statement entered by Sj Deutsch MD - 01/03/25 23:04> Patient seen and examined at bedside with resident. I agree with assessment and plan as dictated below. Cleared for discharge at this time, pending snf placement at [facility] which does not have bed until am. Patient to followup with neurologist at [facility] for further management recommendations. FU cardiology outpatient for further workup of HFrEF Sj Deutsch MD Planned Discharge Date 01/03/25 DS: Providers Provider Date of admission: 12/31/24 11:47 Primary care physician: Physician No Primary/Family Admitting Provider: Bong Parada MD Attending Provider on Admission: Bong Parada MD Consults: 12/31/24 08:54 Consult to Neurology / Tele-Neurology Routine Comment: Consulting Provider: [facility] 12/31/24 11:52 Referral Physical Therapy Routine Comment: Physician Instructions: Referral Speech Therapy Routine Comment: 12/31/24 15:29 Referral Wound Care Routine Comment: 01/02/25 10:06 Consult to Cardiology Routine Comment: HFreF, new Diagnosis, Dilated cardiomyopathy Consulting Provider: Jolie Fitzgerald Attending Provider on DC: Sj Deutsch MD Discharging Provider: Sj Deutsch MD Anticipated date of discharge: 01/03/25 DS: Diagnosis Problem List Completed Was Problem List Reviewed/Reconciled?: Yes Hospital Course Hospital Course Hospital course: Hospital course: Mr. 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 emergency department on 12/31/2024 with a chief complaint of acute neurological symptoms. Patient was found to have right-sided weakness and slurred speech with difficulty eating. Patient did fell while getting out of the bed, Denies hitting her head and losing consciousness. CT scan of the head was negative in ED, CTA head and neck was negative, teleneuro was consulted recommended admission for further stroke workup. Permissive hypertension was allowed for 24 hours, home seizure medication was resumed, patient was started on aspirin Plavix and high-dose atorvastatin, MRI of brain was negative for any acute CVA. Echocardiogram showed findings consistent with dilated cardiomyopathy, global hypokinesis with reduced ejection fraction of 35 to 40%, moderate to severe LV dysfunction cardiology was consulted and recommended outpatient workup. Patient condition improved with the progression of hospital course, physical therapy was consulted, right leg weakness improved, physical therapy recommended discharge to custodial facility. During the hospital course patient refused to see Dr. Christina, risks and benefits explained to the patient as only one neurologist available at the facility, verbalized understanding. Patient will follow-up with his outpatient neurologist at [facility]. Further plan is to discharge patient to custodial facility on aspirin and high-dose atorvastatin, patient to follow-up with neurologist in 1 to 2-week. Patient to follow-up with primary care physician and cardiology outpatient within the next month. Patient is stable for discharge and patient responded well to hospital treatment. 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 Deutsch. Dale James PGY1 Disclaimer: This note was dictated by speech recognition. Minor errors in machines technician may be present due to voice recognition software. Status at Discharge Functional status at discharge: uses cane/walker Overall status at discharge: patient is progressing back to baseline Time Spent with Patient Time attestation: Total time spent providing and/or coordinating discharge services: Greater than 35 minutes Time spent: Greater than 30 minutes Exam Vital Signs Temp Pulse Resp BP Pulse Ox O2 Del Method 97.5 F 80 20 125/80 97 Room Air 01/03/25 07:50 01/03/25 07:50 01/03/25 07:50 01/03/25 07:50 01/03/25 07:50 01/03/25 07:50 Narrative Exam Physical Exam General: Awake and in no acute distress. Conversational and non-toxic appearing. Somewhat anxious. HEENT: Normocephalic, atraumatic, mucous membranes moist. Port-A-Cath noted right chest. Heart: Regular rate and rhythm, no murmurs. Lungs: Clear to auscultation with no wheezing or crackles. Abdomen: Soft, nondistended, nontender, positive bowel sounds. ?No guarding or rebound tenderness. Neurologic: Alert and oriented x3, gross neurological deficit noted, significant right leg weakness though patient is able to move the leg, mild weakness noted right upper arm. Extremities: No edema. Positive for multiple ecchymosis on body, fresh injury and bruise on right upper arm. Skin: No rash or ecchymoses. Discharge Plan Plan Patient Disposition: Xfer Skilled Nsg Fac (SNF) Patient condition on transfer: Stable Prescriptions/Referrals Prescriptions/Med Rec: New atorvastatin 80 mg tablet 80 mg PO HS 30 Days Qty: 30 0RF Continued tamsulosin 0.4 mg capsule 0.4 mg PO QDAY oxcarbazepine [Trileptal] 300 MG tablet 900 mg PO BID Qty: 0 Rx Instructions: TAKE 3 TABLETS BY MOUTH TWICE DAILY Phenytoin Sodium Extended * (DILANTIN *) 100 MG capsule 300 mg PO HS Qty: 0 Patient Comments: FOR SEIZURE CONTROL topiramate 25 mg Capsule, Sprinkle 25 mg PO BID Rx Instructions: TAKE 1 CAPSULE BY MOUTH TWICE DAILY FOR SEIZURES aspirin [Jerica Low Dose Aspirin] 81 mg Tablet,Delayed Release (Dr/Ec) 81 mg PO DAILY 30 Days Qty: 30 0RF Discontinued atorvastatin 20 mg tablet 20 mg PO QAM Referrals: No Primary/Family,Physician [Primary Care Provider] - Jolie Fitzgerald MD [Physician] - Patient/Caregiver Discharge Instructions Discharge Activity: activity as tolerated Other Discharge Activity Instructions:: Continue aspirin daily, increased atorvastatin to 80 mg every night. Follow-up with neurology at [facility] in 1-2 weeks Establish care with cardiology, follow-up with Dr. Jolie Fitzgerald, call his office to make an appointment. Continue all your other medications Follow-up with primary care physician in 1 week Return to emergency department if symptoms worsen. Education Materials: What Is a TIA?, Heart Failure Print Language: Tanzanian Stand Alone Forms: Jasmina Award Info., Patient Portal Info Letter Discharge Order Discharge Orders: Discharge (Routine); Ordered 01/03/25 Ordered By: Dale James Quality Discharge Quality Measures VTE prophylaxis
[2025-01-03] MEDS: LACTULOSE SYRUP 20 GM/30 ML UDC PO (11:32)
[2025-01-03] MEDS: POLYETHYLENE GLYCOL 17 GM PACKET PO (11:54)
--- NOTE | 2025-01-03 18:59 | ESPR_ITS ---
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 The patient clinically not in heart failure, not complaining of any chest pain or shortness of breath. OBJECTIVE: Vital Signs: Blood pressure 129/79, pulse 70. Neck: Supple. Chest: Decreased breath sounds with no rales or rhonchi. Abdomen: Thin and soft. Extremities: No edema. IMPRESSION: 1. Chronic systolic heart failure, nonischemic cardiomyopathy, clinically stable. 2. History of lung carcinoma with brain metastasis in remission. 3. SMART syndrome. 4. History of seizure disorder. 5. Prostatic hypertrophy. RECOMMENDATIONS: Continue medical management. I agree with the current manipulation. I will be glad to follow the patient as an outpatient upon discharge. The patient is cardiac guillory stable to be discharged home. DT: 16:39:37 TT: 18:57:00 Ref: [id number] - TID: [id number]
--- NOTE | 2025-01-03 20:59 | EKG_ITS ---
[facility] Test Date: 2025-01-03 Pat Name: ANTON HATCH [facility] Gender: Male Basketball Coach: JULIO CESART4 : 1960 Requested By: Kevin Romero Order Number: [id number] Reading MD: Kevin Romreo Measurements Intervals [place] Rate: 101 P: 73 IN: 185 QRS: 23 QRSD: 114 T: 83 QT: 365 QTc: 475 Interpretive Statements SINUS TACHYCARDIA WITH FREQUENT VENTRICULAR PREMATURE COMPLEXES INCOMPLETE RIGHT BUNDLE BRANCH BLOCK LEFT VENTRICULAR HYPERTROPHY AND ST-T CHANGE Compared to ECG 12/31/2024 09:51:21 Ventricular premature complex(es) now present Incomplete right bundle-branch block now present ST (T wave) deviation now present Sinus rhythm no longer present Intraventricular conduction delay no longer present /store/S0/[id number]/[id number].pdf
[2025-01-03] MEDS: ATORVASTATIN CALCIUM 20 MG TABLET 80 MG PO (21:03)
[2025-01-03] MEDS: PHENYTOIN 100 MG CAPSR 300 MG PO (21:15)
[2025-01-03 22:05] LABS: Phosphorous 3.9 mg/dL (2.4-5.1); Potassium 3.8 mMol/L (3.4-5.1)
[2025-01-03] MEDS: POTASSIUM CHLORIDE 20 mEq TABCR 40 MEQ PO (23:06)
[2025-01-03] MEDS: Magnesium Sulfate 2 GM Ivpb 2 GM/50 ML BAG IV (23:11)
[2025-01-04] VITALS: BP 143/84; PULSE 79; RESP 18; TEMP 36.2; O2SAT 97
[2025-01-04 00:21] VITALS: PULSE 75
[2025-01-04 04:00] VITALS: BP 139/98; PULSE 67; RESP 19; TEMP 36.7; O2SAT 97
[2025-01-04 05:07] LABS: Basophils # (Auto) 0.1 Thou/mm3 (0.0-0.2); Basophils % (Auto) 1 % (0-2.5); Eosinophils # (Auto) 0.1 Thou/mm3 (0.0-0.5); Eosinophils % (Auto) 1 % (0-10); Hematocrit 39.1 % (41.0-53.0); Hemoglobin 13.3 g/dL (13.5-16.0); Immature Granulocytes % (Auto) 0 % (0-0); Immature Granulocytes Auto 0.02 Thou/mm3 (0.00-0.00); Lymphocytes # (Auto) 2.1 Thou/mm3 (1.0-4.8); Lymphocytes % (Auto) 21 % (10-50); Mean Corpuscular Hemoglobin 29.3 pg (25.0-35.0); Mean Corpuscular Volume 86 fL (80-100); Monocytes # (Auto) 0.8 Thou/mm3 (0.0-0.8); Monocytes % (Auto) 9 % (0-12); Neutrophils # (Auto) 6.6 Thou/mm3 (1.8-7.7); Neutrophils % (Auto) 68 % (37-80); Nucleated Red Blood Cell % 0 /100 WBC (0); Platelet Count 294 Thou/mm3 (140-440); RDW Standard Deviation 45.7 fL (35.1-43.9); Red Blood Count 4.54 Miln/mm3 (4.50-5.90); White Blood Count 9.8 Thou/mm3 (3.8-10.6)
[2025-01-04] MEDS: HEPARIN SOD INJ 5000 UNIT/ML VIAL SC (05:29)
[2025-01-04 05:52] LABS: Alanine Aminotransferase < 7 U/L (10-49); Albumin, Serum 4.3 gm/dL (3.4-4.8); Albumin/Globulin Ratio 1.8 (1.2-2.2); Alkaline Phosphatase 133 U/L (46-116); Anion Gap 8 (7-16); Aspartate Amino Transferase < 10 U/L (0-34); BUN/Creatinine Ratio 23 Ratio (12-20); Bilirubin,Total 0.4 mg/dL (0.3-1.2); Blood Urea Nitrogen 18 mg/dL (9-23); Calcium 8.8 mg/dL (8.3-10.6); Calcium (Corrected) 8.8 mg/dL (8.5-10.1); Carbon Dioxide 24.3 mMol/L (20.0-31.0); Chloride 107 mMol/L (98-107); Creatinine (Component) 0.8 mg/dL (0.6-1.3); Estimated Creatinine Clearance 90.3 mL/min (>60); Globulin 2.4 gm/dL (2.3-3.5); Glucose 105 mg/dL (74-106); Magnesium 2.3 mg/dL (1.6-2.6); Osmolality,Calculated 279 (275-295); Potassium 4.3 mMol/L (3.4-5.1); Sodium 139 mMol/L (136-145); Total Protein 6.7 gm/dL (5.7-8.2); eGFR > 60 See Note
[2025-01-04 06:00] VITALS: BMI 24.0
[2025-01-04 08:00] VITALS: BP 130/80; PULSE 78; PULSE 83; RESP 20; TEMP 36.4; O2SAT 96
[2025-01-04] MEDS: OXCARBazepine 150 MG TABLET (NON-FORMULARY) 900 MG PO (08:23)
[2025-01-04] MEDS: TOPIRAMATE 25 MG TABLET PO (08:24)
[2025-01-04] MEDS: TAMSULOSIN HCL 0.4 MG CAPSULE PO (08:24)
[2025-01-04] MEDS: ASPIRIN EC 81 MG TABEC PO (08:24)
[2025-01-04] MEDS: CLOPIDOGREL BISULFATE 75 MG TABLET PO (08:24)
--- NOTE | 2025-01-04 09:10 | PC.SS ---
Addendum entered by Haley Bryant 01/04/25 11:44: SS has spoken to patient's dtr, Valeri who is aware pt is ready for d/c and confirmed pt will go to [facility]. SS spoke to Monik from [facility] and they are arranging transportation at 11am for pt. SS met with pt who is also agreeable to dc to [facility]. SS has sent [facility] through [facility] due to not having access to file exchange and d/c summary. SNF packet was provided to Monik from [facility]. SS provided bedside nurse with phone# for report to [facility], Original Note: Follow up note: SS followed up with Monik from [facility] who states they are able to accept pt today.
[2025-01-04 09:33] VITALS: BMI 24.0
[2025-01-04 11:00] VITALS: BP 157/69; PULSE 63; RESP 18; TEMP 36.4; O2SAT 98
--- NOTE | 2025-01-04 11:51 | ESDS_ITS ---
<Statement entered by Manjit Charles MD - 01/04/25 23:26> I discussed with and supervised the international project manager physician involved in the care of this patient. Patient assessment and plan was discussed with entire medicine team, including my attending. I agree with the assessment and plan as documented by international project manager doctor. Patient care was discussed with my attending physician Dr. Fito Charles, PGY-2 Planned Discharge Date 01/04/25 DS: Providers Provider Date of admission: 12/31/24 11:47 Primary care physician: Physician Sonia Primary/Family Admitting Provider: Bong Parada MD Attending Provider on Admission: Christophe Payton DO Consults: 12/31/24 08:54 Consult to Neurology / Tele-Neurology Routine Comment: Consulting Provider: [facility] 12/31/24 11:52 Referral Physical Therapy Routine Comment: Physician Instructions: Referral Speech Therapy Routine Comment: 12/31/24 15:29 Referral Wound Care Routine Comment: 01/02/25 10:06 Consult to Cardiology Routine Comment: HFreF, new Diagnosis, Dilated cardiomyopathy Consulting Provider: Jolie Fitzgerald Attending Provider on DC: Dale James MD Discharging Provider: Dale James MD Anticipated date of discharge: 01/04/25 DS: Diagnosis Problem List Completed Was Problem List Reviewed/Reconciled?: Yes Hospital Course Hospital Course Hospital course: Patient's discharge was held yesterday as due to preferable [facility] facility placement. Patient is stable for discharge today, please see discharge summary below for details. Hospital course: Mr. 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 Patient was found to have right-sided weakness and slurred speech with difficulty eating. Patient did fell while getting out of the bed, Denies hitting her head and losing consciousness. CT scan of the head was negative in ED, CTA head and neck was negative, teleneuro was consulted recommended admission for further stroke workup. Permissive hypertension was allowed for 24 hours, home seizure medication was resumed, patient was started on aspirin Plavix and high-dose atorvastatin, MRI of brain was negative for any acute CVA. Echocardiogram showed findings consistent with dilated cardiomyopathy, global hypokinesis with reduced ejection fraction of 35 to 40%, moderate to severe LV dysfunction cardiology was consulted and recommended outpatient workup. Patient condition improved with the progression of hospital course, physical therapy was consulted, right leg weakness improved, physical therapy recommended discharge to [facility] facility. During the hospital course patient refused to see Dr. Christina, risks and benefits explained to the patient as only one neurologist available at the facility, verbalized understanding. Patient will follow-up with his outpatient neurologist at [facility]. Further plan is to discharge patient to [facility] facility on aspirin and high-dose atorvastatin, patient to follow-up with neurologist in 1 to 2-week. Patient to follow-up with primary care physician and cardiology outpatient within the next month. Patient is stable for discharge and patient responded well to hospital treatment. Patient also started on low-dose lisinopril and Coreg for GDMT, will follow-up with cardiology. 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 Payton and DR Charles PGY2. Dale James PGY1 Disclaimer: This note was dictated by speech recognition. Minor errors in negative turner apprentice may be present due to voice recognition software. Status at Discharge Functional status at discharge: uses cane/walker Overall status at discharge: patient is progressing back to baseline Time Spent with Patient Time attestation: Total time spent providing and/or coordinating discharge services: Greater than 35 minutes Time spent: Greater than 30 minutes Exam Vital Signs Temp Pulse Resp BP Pulse Ox O2 Del Method 97.5 F 63 18 157/69 H 98 Room Air 01/04/25 11:00 01/04/25 11:01/04/25 11:00 01/04/25 11:00 01/04/25 11:00 01/04/25 11:00 Narrative Exam Physical Exam General: Awake and in no acute distress. Conversational and non-toxic appearing. Somewhat anxious. HEENT: Normocephalic, atraumatic, mucous membranes moist. Port-A-Cath noted right chest. Heart: Regular rate and rhythm, no murmurs. Lungs: Clear to auscultation with no wheezing or crackles. Abdomen: Soft, nondistended, nontender, positive bowel sounds. ?No guarding or rebound tenderness. Neurologic: Alert and oriented x3, gross neurological deficit noted, significant right leg weakness though patient is able to move the leg, mild weakness noted right upper arm. Extremities: No edema. Positive for multiple ecchymosis on body, fresh injury and bruise on right upper arm. Skin: No rash or ecchymoses. Discharge Plan Plan Patient Disposition: Xfer Skilled [facility] (SNF) Patient condition on transfer: Stable Prescriptions/Referrals Prescriptions/Med Rec: New atorvastatin 80 mg tablet 80 mg PO HS 30 Days Qty: 30 0RF carvedilol [Coreg] 3.125 mg tablet 3.125 mg PO BID 30 Days Qty: 60 0RF Rx Instructions: must administer with a meal/food lisinopril 5 mg tablet 5 mg PO QDAY 30 Days Qty: 30 0RF Continued tamsulosin 0.4 mg capsule 0.4 mg PO QDAY oxcarbazepine [Trileptal] 300 MG tablet 900 mg PO BID Qty: 0 Rx Instructions: TAKE 3 TABLETS BY MOUTH TWICE DAILY Phenytoin Sodium Extended * (DILANTIN *) 100 MG capsule 300 mg PO HS Qty: 0 Patient Comments: FOR SEIZURE CONTROL topiramate 25 mg Capsule, Sprinkle 25 mg PO BID Rx Instructions: TAKE 1 CAPSULE BY MOUTH TWICE DAILY FOR SEIZURES aspirin [Jerica Low Dose Aspirin] 81 mg Tablet,Delayed Release (Dr/Ec) 81 mg PO DAILY 30 Days Qty: 30 0RF Discontinued atorvastatin 20 mg tablet 20 mg PO QAM Referrals: No Primary/Family,Physician [Primary Care Provider] - Jolie Fitzgerald MD [Physician] - Patient/Caregiver Discharge Instructions Discharge Activity: activity as tolerated Other Discharge Activity Instructions:: Start Lisinopril 5mg and Carvedilol 3.125mg twice daily for heart failure with reduced ejection fracture. Continue aspirin daily, increased atorvastatin to 80 mg every night. Follow-up with neurology at [facility] in 1-2 weeks Establish care with cardiology, follow-up with Dr. Jolie Fitzgerald, call his office to make an appointment. Continue all your other medications Follow-up with primary care physician in 1 week Return to emergency department if symptoms worsen. Education Materials: What Is a TIA?, Heart Failure Print Language: Botswanan Stand Alone Forms: Jasmina Award Info., Patient Portal Info Letter Discharge Order Discharge Orders: Discharge (Routine); Ordered 01/04/25 Ordered By: Dale James Quality Discharge Quality Measures VTE prophylaxis Attestestation Attestation I have discussed and was present for the essential components of the discharge history, physical examination, diagnosis, and discharge treatment plan with the resident. I agree with the patient's discharge care as documented by the resident and amended herein by me. Agapito Payton, DO. The patient understood all discharge instructions, all questions were answered satisfactorily. The patient was instructed to return to the Emergency Department is symptoms worsened or persisted. Although this document has been carefully reviewed, there may still be some phonetic and other typographical errors. These errors are purely grammatical due to imperfections in the software program and should not be construed in any way to compromise the substance of the patient's medical care during this visit.
== END 2025-01-04 11:20 | disposition skilled nursing facility (03) | DRG 69 ==
LOC: SERX 11:02 → SERHOLD 12:05 → S2NX 18:28
PROVIDERS: Student in an Organized Health Care Education/Training Program; Admitting Provider Student in an Organized Health Care Education/Training Program; Emergency Provider Emergency Medicine; Visit Provider Student in an Organized Health Care Education/Training Program
DX: G45.9 Transient cerebral ischemic attack, unspecified (principal); I42.0 Dilated cardiomyopathy; I50.22 Chronic systolic (congestive) heart failure; I69.351 Hemiplegia and hemiparesis following cerebral infarction affecting right dominant side; I42.4 Endocardial fibroelastosis; G43.809 Other migraine, not intractable, without status migrainosus; N40.0 Benign prostatic hyperplasia without lower urinary tract symptoms; D64.9 Anemia, unspecified; I11.0 Hypertensive heart disease with heart failure; D72.829 Elevated white blood cell count, unspecified; G40.909 Epilepsy, unspecified, not intractable, without status epilepticus; I69.328 Other speech and language deficits following cerebral infarction; H53.40 Unspecified visual field defects; Z66 Do not resuscitate; Z85.118 Personal history of other malignant neoplasm of bronchus and lung; Z79.899 Other long term (current) drug therapy; Z87.891 Personal history of nicotine dependence; Z92.21 Personal history of antineoplastic chemotherapy; Z92.3 Personal history of irradiation; Z96.642 Presence of left artificial hip joint; Z79.82 Long term (current) use of aspirin; Z85.841 Personal history of malignant neoplasm of brain; W06.XXXA Fall from bed, initial encounter; Y84.2 Radiological procedure and radiotherapy as the cause of abnormal reaction of the patient, or of later complication, without mention of misadventure at the time of the procedure
CPT/HCPCS: 36415; 70450; 70496; 70498; 70544; 80053; 80061; 80307; 80320; 81001; 83036; 83735; 84100; 84132; 84443; 84484; 85025; 85610; 85730; 87086; 92610; 93005; 93306; 97162; 99291; A4649; J1643; J3475; Q9967; A9270; G0480

== ENCOUNTER 2025-02-11 13:31 | Inpatient (IN) | payer MEDICARE, MEDICAID, SELFPAY ==
[2025-02-11] VITALS (7 sets, daily range): BP systolic 125–181; BP diastolic 76–96; PULSE 80–92; RESP 13–20; TEMP 36.4–37.1; O2SAT 94–98; BMI 21.7; BMI 23.6
--- NOTE | 2025-02-11 | XR_ITS ---
Examinations: MRI Brain without intravenous contrast. MRA brain without intravenous contrast. MRA carotids without intravenous contrast 3-D vascular reconstructions Date and time of exam: February 11, 2025 1925 hours Comparison December 31, 2024 INDICATIONS: Diagnosis lung cancer with metastasis stenosis of the brain in remission, hypertension, onset neurologic deficits right-sided body weakness and slurred speech today Technique: Multiple axial and sagittal images of the brain have been obtained MRA brain carotid images without contrast obtained, including 3-D postprocessing, vascular maximum intensity projection images Findings: Sellaturcica is not enlarged. The optic chiasm and infundibular stalk are not remarkable. Prepontine and interpeduncular cisterns are not enlarged. No localized enlargement of the medulla or michael. Fourth ventricle and cerebellar tonsils normal in position. Subacute hemorrhage is not seen. Fourth ventricle is midline. Mass in the cerebellopontine angle region is not evident. 7th and 8th nerve complexes exhibits symmetry. Globes are symmetrical with no retro-orbital mass. Increased white matter signal evident including old infarct left parieto-occipital lobe Diffusion-weighted images demonstrate new foci restricted diffusion medial right occipital lobe 19 mm posterior right temporal lobe 4 mm, 3 mm Mass-effect upon the ventricular system is not identified. MRA carotid images degraded by patient motion. MRA brain images moderate diffuse cerebral arterial irregularity Impression: New acute infarcts right occipital lobe right temporal lobe
--- NOTE | 2025-02-11 13:48 | EKG_ITS ---
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1960 Requested By: Jonah Zabala Order Number: [id number] Reading MD: Jonah Zabala Measurements Intervals [place] Rate: 86 P: 56 [place]: 168 QRS: -6 QRSD: 118 T: 57 QT: 355 QTc: 427 Interpretive Statements SINUS RHYTHM WITH OCCASIONAL VENTRICULAR PREMATURE COMPLEXES MODERATE INTRAVENTRICULAR CONDUCTION DELAY [110+ ms QRS DURATION] MODERATE ST DEPRESSION [0.05+ mV ST DEPRESSION] Compared to ECG 01/03/2025 21:11:31 Intraventricular conduction delay now present Sinus tachycardia no longer present Incomplete right bundle-branch block no longer present Left ventricular hypertrophy no longer present ST (T wave) deviation still present /store/S0/[id number]/ecg/[id number].pdf
--- NOTE | 2025-02-11 13:48 | XR_ITS ---
Examination: CT brain head without contrast. 2-D sagittal coronal reconstructions Date and time of exam:February 11, 2025 1352 hours Comparison December 31, 2024 INDICATIONS: Stroke alert, onset focal neurologic deficit, blurred vision right-sided body weakness today CTDI: vol (mGy):55.6 DLP: (mGycm):1230 Technique: Multiple CT axial sections of the brain have been obtained, 5 mm slice thickness. Contrast has not been administered. 2-D sagittal, coronal reconstructions have been obtained Low dose protocols were performed. One or more of the following dose reduction techniques were used; automated exposure control, adjustment of the mA and/or KV according to patient size, use of iterative reconstruction technique. Findings: No significant ventricular enlargement. Again noted old infarct or encephalomalacia left posterior parietal occipital lobe adjacent to craniotomy defect Old basal ganglia infarcts Small old appearing infarct left brainstem noted on the prior study Intra-axial or extra-axial hemorrhage density is not seen. No mass effect or midline shift Basal cisterns are not remarkable. Fourth ventricle is midline. Cranial vault intact. Impression: No interval acute hemorrhage, mass effect or midline shift
--- NOTE | 2025-02-11 13:48 | XR_ITS ---
Examination: CTA carotids with intravenous contrast CTA brain, head with intravenous contrast. 2-D sagittal, coronal reconstructions. 3-D reconstructions. Exam date and time: February 11, 2025 1423 hours Comparison December 31, 2024 INDICATIONS: Stroke alert, onset focal neurologic deficit today CTDI: vol (mGy) 11.6 DLP: (mGycm) 470 Technique: Multiple CTA axial brain, head carotid images post intravenous contrast injection 75 cc, [id number]. 2-D sagittal, coronal reconstructions. 3-D reconstructions, 3-D post processing including vascular maximum intensity projection images. Low dose protocols were performed. One or more of the following dose reduction techniques were used; automated exposure control, adjustment of the mA and/or KV according to patient size, use of iterative reconstruction technique. Findings: No significant common carotid artery bifurcation or internal carotid artery stenoses Dominant left vertebral artery with no significant stenoses No cerebral large vessel arterial occlusions, thrombus, dissection or cerebral aneurysm IMPRESSION: No significant neck arterial stenoses No cerebral large vessel arterial occlusions
[2025-02-11 14:13] LABS: Basophils # (Auto) 0.1 Thou/mm3 (0.0-0.2); Basophils % (Auto) 0 % (0-2.5); Eosinophils # (Auto) 0.2 Thou/mm3 (0.0-0.5); Eosinophils % (Auto) 1 % (0-10); Hematocrit 37.8 % (41.0-53.0); Hemoglobin 13.9 g/dL (13.5-16.0); Immature Granulocytes % (Auto) 0 % (0-0); Immature Granulocytes Auto 0.06 Thou/mm3 (0.00-0.00); Lymphocytes # (Auto) 2.1 Thou/mm3 (1.0-4.8); Lymphocytes % (Auto) 14 % (10-50); Mean Corpuscular HGB Conc 36.8 g/dl (31.0-37.0); Mean Corpuscular Hemoglobin 29.4 pg (25.0-35.0); Mean Corpuscular Volume 80 fL (80-100); Monocytes # (Auto) 1.1 Thou/mm3 (0.0-0.8); Monocytes % (Auto) 8 % (0-12); Neutrophils # (Auto) 11.4 Thou/mm3 (1.8-7.7); Neutrophils % (Auto) 76 % (37-80); Nucleated Red Blood Cell % 0 /100 WBC (0); Platelet Count 286 Thou/mm3 (140-440); RDW Standard Deviation 41.3 fL (35.1-43.9); Red Blood Count 4.72 Miln/mm3 (4.50-5.90); White Blood Count 14.9 Thou/mm3 (3.8-10.6)
[2025-02-11] MEDS: SODIUM CHLORIDE 0.9% 1000 ML 1,000 ML 100 ML IV (14:30)
[2025-02-11 14:34] LABS: Alanine Aminotransferase 16 U/L (10-49); Albumin, Serum 4.8 gm/dL (3.4-4.8); Albumin/Globulin Ratio 1.9 (1.2-2.2); Alcohol, Blood Medical < 3.0 mg/dL (0-10.0); Alkaline Phosphatase 124 U/L (46-116); Anion Gap 10 (7-16); Aspartate Amino Transferase 17 U/L (0-34); BUN/Creatinine Ratio 14 Ratio (12-20); Bilirubin,Total 0.2 mg/dL (0.3-1.2); Blood Urea Nitrogen 10 mg/dL (9-23); Calcium 9.1 mg/dL (8.3-10.6); Calcium (Corrected) 9.1 mg/dL (8.5-10.1); Carbon Dioxide 26.2 mMol/L (20.0-31.0); Chloride 92 mMol/L (98-107); Creatinine (Component) 0.7 mg/dL (0.6-1.3); Estimated Creatinine Clearance 109.4 mL/min (>60); Globulin 2.5 gm/dL (2.3-3.5); Glucose 128 mg/dL (74-106); Magnesium 1.7 mg/dL (1.6-2.6); Osmolality,Calculated 258 (275-295); Potassium 3.7 mMol/L (3.4-5.1); Sodium 128 mMol/L (136-145); Total Protein 7.3 gm/dL (5.7-8.2); Troponin I < 0.020 ng/mL (0.0-0.045); eGFR > 60 See Note
--- NOTE | 2025-02-11 14:42 | PD.TNEURO ---
Tele Neuro Consultation Consultation Date 02/11/25 Most Recent Vital Signs Last Vital Signs Temp 98.6 F 02/11/25 13:43 Pulse 83 02/11/25 13:43 Resp 19 02/11/25 13:43 BP 152/81 H 02/11/25 13:43 Pulse Ox 97 02/11/25 13:43 O2 Del Method Room Air 02/11/25 13:43 Consultation Narrative [facility] Tele[facility]urology Consult Services Patient Name:???Wil Garcia Date of :???1960 Identification Number:??? Date of Service:???02/11/2025 13:49:21 Diagnosis:?H53.8 - Blurred Vision Impression: ?Patient is a 64 yo M with a PMH of lung cancer with brain metastases s/p resection and radiation therapy (left parieto-occipital region), initially s/p craniectomy with subsequent seizures, followed by severe subclinical seizures following cranioplasty, attributed to SMART syndrome, HTN, dilated cardiomyopathy, stroke, recent admission 12/2024 for acute right sided weakness of unclear etiology (pending f/u at [facility]) who presents with acute binocular vision loss and confusion. LNK 1999. CTH reviewed, no acute findings appreciated. Chronic left parietal occipital encephalomalacia and craniotomy defect, old BG and brainstem infarcts. 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 Clinically no overt seizure activity noted. Possibly primary ocular pathology, although atypical to affect both eyes simultaneously. Thrombolytic therapy is not recommended with LNK >4.5 hours. CTA head and neck are pending. Addendum: CTA head and neck negative for acute LVO. Emergent JENNY not indicated. No critical stenosis noted. Our recommendations are outlined below. Recommendations: ? Stroke/Telemetry Floor ? Neuro Checks (Q2-3 hours) ? Bedside Swallow Eval ? DVT Prophylaxis ? IV Fluids, Normal Saline ? Head of Bed less than 30 Degrees ? Euglycemia and Avoid Hyperthermia (PRN Acetaminophen) ? Antihypertensives PRN if Blood pressure is greater than 220/120 or there is a concern for End organ damage/contraindications for permissive HTN. If blood pressure is greater than 220/120 give labetalol PO or IV or Vasotec IV with a goal of 15% reduction in BP during the first 24 hours. ?- ASA 325mg once CTH resulted ?- MRI brain w/wo contrast ?- Rec EEG ?- Continue Phenytoin 300mg QHS, Trileptal 900mg BID and topiramate 25mg BID- confirmed home AED doses and on discharge summary. Check CMP, AED levels ?- If MRI brain w/wo and EEG are negative per d/w daughter she would like to consider transfer to [facility] where patient's neurologists/MERRICK who manage his SMART syndrome are, this is potentially reasonable if persistent deficits of unclear etiology with complex neurological history. Also, would consider ophthalmology evaluation if persistent vision changes. Will defer to neurology follow-up. ?-Seizure precautions Sign Out: ? Discussed with Emergency Department Provider Dr Oakes Advanced Imaging: Advanced imaging has been ordered. Results pending. Metrics: Last Known Well: 02/10/2025 20:00:00 Dispatch Time: 02/11/2025 13:49:21 Arrival Time: 02/11/2025 13:31:00 Initial Response Time: 02/11/2025 13:52:14Symptoms: vision loss. Initial patient interaction: 02/11/2025 14:00:00 NIHSS Assessment Completed: 02/11/2025 14:10:30Patient is not a candidate for Thrombolytic. Thrombolytic Medical Decision: 02/11/2025 14:10:31Patient was not deemed candidate for Thrombolytic because of following reasons: LKW outside 4.[address] Head: I personally reviewed all the CT images that were available to me and it showed: chronic changes as noted above Primary Provider Notified of Diagnostic Impression and Management Plan on: 02/11/2025 14:39:24 History of Present Illness:Patient is a 64 year old Male. Patient was brought by EMS for symptoms of vision loss. Patient is a 64 yo M with a PMH of lung cancer with brain metastases s/p resection and radiation therapy (left parieto-occipital region), initially s/p craniectomy with subsequent seizures, followed by severe subclinical seizures following cranioplasty, attributed to SMART syndrome, HTN, dilated cardiomyopathy, stroke, recent admission 12/2024 for acute right sided weakness of unclear etiology (pending f/u at [facility]) who presents with acute binocular vision loss and confusion. LNK 1999, per patient and daughter. He has had residual right sided weakness since his hospital discharge in 12/2024 for which he has been in an inpatient SNF/rehab facility. Gradual improvement over the past several weeks. He awoke today with painless vision loss in both eyes. He is slightly agitated at the time of consultation, so provides limited details about his symptoms, stating he could not see. No associated pain, new weakness or numbness. He advised me to call his daughter. I obtained his PMH from review of EMR and d/w his daughter Valeri via telephone. Past Medical History: Other PMH:? As noted above Medications: No Anticoagulant use? Antiplatelet use:?Yes?ASA Reviewed EMR for current medications Allergies:? Reviewed Social History: Drug Use: No Family History: There Is Family History Of:Unable to obtain ROS : 14 Points Review of Systems was performed and was negative except mentioned in HPI. Past Surgical History: There Is No Surgical History Contributory To Today?s Visit Examination: BP(155/90),?Pulse(60), 1A: Level of Consciousness - Alert; keenly responsive?+ 0 1B: Ask Month and Age - Both Questions Right?+ 0 1C: Blink Eyes & Squeeze Hands - Performs Both Tasks?+ 0 2: Test Horizontal Extraocular Movements - Normal?+ 0 3: Test Visual Schwab - Patient is Bilaterally Blind?+ 3 4: Test Facial Palsy (Use Grimace if Obtunded) - Normal symmetry?+ 0 5A: Test Left Arm Motor Drift - No Drift for 10 Seconds?+ 0 5B: Test Right Arm Motor Drift - No Drift for 10 Seconds?+ 0 6A: Test Left Leg Motor Drift - No Drift for 5 Seconds?+ 0 6B: Test Right Leg Motor Drift - No Drift for 5 Seconds?+ 0 7: Test Limb Ataxia (FNF/Heel-De La Cruz) - Ataxia in 2 Limbs?+ 2 8: Test Sensation - Normal; No sensory loss?+ 0 9: Test Language/Aphasia - Normal; No aphasia?+ 0 10: Test Dysarthria - Normal?+ 0 11: Test Extinction/Inattention - No abnormality?+ 0 NIHSS Score:?5 Pre-Morbid Modified [place] Scale:Unable to assess Spoke with :?Dr Oakes This consult was conducted in real time using interactive audio and video technology. Patient was informed of the technology being used for this visit and agreed to proceed. Patient located in hospital and provider located at home/office setting. Patient is being evaluated for possible acute neurologic impairment and high probability of imminent or life-threatening deterioration. I spent total of 35 minutes providing care to this patient, including time for face to face visit via telemedicine, review of medical records, imaging studies and discussion of findings with providers, the patient and/or family. Dr Qing Branham [facility] For Inpatient follow-up with [facility] physician please call [facility] at . As we are not an outpatient service for any post hospital discharge needs please contact the hospital for assistance. If you have any questions for the [facility] physicians or need to reconsult for clinical or diagnostic changes please contact us via [facility] at .
[2025-02-11 15:17] LABS: Collection Type, Urine Catheter; Squamous Epithelial Cell,Urine 0 /hpf (0-5); WBC,Urine 0 /hpf (0-5)
[2025-02-11 15:31] LABS: Amphetamine/Methamp Scrn,U Negative (Negative); Barbiturate Screen,Urine Negative (Negative); Benzodiazepines Screen,Urine Negative (Negative); Benzoylecgonine Screen, Ur Negative (Negative); Fentanyl Screen,Urine Negative (Negative); Opiate Screen,Urine Negative (Negative); THC Screen,Urine Negative (Negative)
[2025-02-11 15:34] LABS: Amorphous Crystals,Urine Present (Absent); Bacteria,Urine Rare; Bilirubin,Urine Negative (Negative); Blood,Urine Negative (Negative); Color,Urine Lt-Yellow (Lt Yel-Yel); Glucose, Urine Negative (Negative); Ketones,Urine Negative (Negative); Leukocyte Esterase,Urine Negative (Negative); Nitrite,Urine Negative (Negative); Protein,Urine Negative (Neg - Trace); RBC,Urine 7 /hpf (0-3); Specific Gravity,Urine 1.027 (1.001-1.035); Urobilinogen,Urine Negative mg/dL (0.0-1.0)
[2025-02-11 15:36] LABS: Clarity,Urine Hazy (Clear/Hazy)
[2025-02-11 15:38] LABS: INR 0.9 (0.9-1.3); Partial Thromboplastin Time 25.9 Seconds (22.0-36.0); Prothrombin Time 10.4 Seconds (9.0-12.2)
--- NOTE | 2025-02-11 15:54 | ESHP_ITS ---
<Statement entered by Dorian Cabral MD - 02/21/25 07:23> I reviewed above note and agree with findings and plans. I have also personally examined the patient with medicine team and went over assessment and plan with medical team including internet marketing director and resident physician. 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 Of note, patient was recently discharged from [facility] Secondary to new neurologic deficits on the right side with slurred speech. Diagnosis at the time was hypertensive emergency as MRI of the brain at that time was negative for any acute CVA. Patient was also diagnosed with new onset heart failure with reduced ejection fraction at that time. Patient was discharged to a SNF and has been there ever since. 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 He states that he is able to see some light but cannot distinguish objects. Patient also follows a neurologist at [facility] who manages his smart syndrome but during questioning he was not aware. Some of the history also taken from ED physician and teleneurologist to questions the patient's daughter. 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 twice daily, topiramate 25 mg p.o. twice daily and was recently started on GDMT Family History: Positive for history of breast cancer in mother and lung cancer in father Social history: [id number] history currently not smoking, occasional alcohol use, use of marijuana currently but denies any other illicit substances ROS: All 12 systems assessed and the patient denies unless otherwise stated in HPI In the ED, patient presented hypertensive 152/81, heart rate 83, respiratory rate 19, afebrile satting 97 on room air. Pertinent lab findings include WBC of 14.9, hemoglobin 13.9, sodium 128, creatinine 0.7, magnesium 1.7, alk phosphatase 124, troponin less than 0.020, urinalysis negative for any signs of infection. U tox positive for marijuana. Head CT showed no interval acute hemorrhage or mass effect, head neck CTA showed no significant neck arterial stenosis or LVO and EKG showed sinus rhythm with occasional PVCs and no concerning ST changes. Patient will be admitted for new bilateral blindness with teleneurology consulted, brain MRI and EEG ordered for assessment. Exam Vital Signs Temp Pulse Resp BP Pulse Ox O2 Del Method 98.6 F 91 13 139/96 H 98 Room Air 02/11/25 15:47 02/11/25 15:47 02/11/25 15:47 02/11/25 15:47 02/11/25 15:47 02/11/25 15:47 Narrative Exam Physical Exam: GENERAL: Awake, answering questions appropriately, appears stated age HEENT: NC/AT. Moist mucosa. PERRLA/EOMI. Poor dentition CARDIO: Heart RRR, no obvious murmurs, no JVD. PULM: No coughing or visible SOB. Lungs CTA B/L. GI: Abdomen soft, NT/ND, +BS. SKIN/MSK/EXT: No wounds/discoloration/rashes/edema/amputations. +Pedal pulses present B/L. NEURO: Oriented x3, Moves extremities x4, cranial nerve II (optic) dysfunction, cranial nerves III to XII intact, graduate internship strength 5 out of 5, muscle strength 5 out of 5 on bilateral upper and lower extremities. Sensations grossly intact. Results: Labs 02/11/25 14:00 02/11/25 14:00 Labs: Short CBC 02/11/25 Range/Units 14:00 WBC 14.9 H (3.8-10.6) Thou/mm3 Hgb 13.9 (13.5-16.0) g/dL Hct 37.8 L (41.0-53.0) % Plt Count 286 (140-440) Thou/mm3 BMP 02/11/25 14:00 Sodium 128 L Potassium 3.7 Chloride 92 L Carbon Dioxide 26.2 BUN 10 Creatinine 0.7 Glucose 128 H Calcium 9.1 Cardiac Enzymes 02/11/25 Range/Units 14:00 Troponin I < 0.020 (0.0-0.045) ng/mL Liver Function 02/11/25 Range/Units 14:00 Total Bilirubin 0.2 L (0.3-1.2) mg/dL AST 17 (0-34) U/L ALT 16 (10-49) U/L Alkaline Phosphatase 124 H (46-116) U/L Albumin 4.8 (3.4-4.8) gm/dL Urine 02/11/25 Range/Units 15:00 Urine Color Lt-Yellow (Lt Yel-Yel) Urine Clarity Hazy (Clear/Hazy) Urine pH 7.0 (5.0-7.0) Ur Specific [place] 1.027 (1.001-1.035) Urine Protein Negative (Neg - Trace) Urine Glucose (UA) Negative (Negative) Quality Measures Quality Measures VTE prophylaxis Medications Home Medications and Allergies Home Medications ?Medication ?Instructions ?Recorded ?Confirmed ?Type Phenytoin Sodium Extended * 300 mg PO HS #0 caps 04/1412/31/24 History (DILANTIN *) oxcarbazepine 300 mg tablet 900 mg PO BID #0 tabs 03/2412/31/24 History (Trileptal) tamsulosin 0.4 mg capsule 0.4 mg PO QDAY 05/05/2012/22 History topiramate 25 mg sprinkle capsule 25 mg PO BID Seizure s 11/28/22 12/31/24 History Allergies Allergy/AdvReac Type Severity Reaction Status Date / Time No Known Allergies Allergy Verified 11/16/24 10:57 Visit Medications Acetaminophen (Acetaminophen 325 Mg Tablet) 650 mg PO Q6H PRN PRN Reason: Pain 1-3 and/or Fever >100.1 Stop: 03/13/25 15:39 Aspirin (Aspirin 325 Mg Tablet) 325 mg PO QDAY EDYTA Stop: 03/13/25 15:44 Sodium Chloride (Ns) 1,000 mls @ 100 mls/hr IV Q10H EDYTA Stop: 03/13/25 13:59 Last Admin: 02/11/25 14:30 Dose: 100 mls/hr Labetalol HCl (Labetalol Inj 5 Mg/Ml Vial 20 Ml) 10 mg IVP Q2HR PRN PRN Reason: Systolic >180 and HR >70 Stop: 03/13/25 15:59 Ondansetron HCl (Ondansetron Inj 2 Mg/Ml Inj 2 Ml) 4 mg IVP Q6H PRN; Protocol PRN Reason: NAUSEA OR VOMITING Stop: 03/13/25 15:39 Patient Own Medication (Patient's Own Med 1 Ea Ea) 900 ea PO BID EDYTA Stop: 03/13/25 20:59 Phenytoin (Phenytoin 100 Mg Capsr) 300 mg PO HS EDYTA Stop: 03/13/25 20:59 Sennosides (Senna Tablet) 1 tab PO QDAY PRN; Protocol PRN Reason: constipation Stop: 03/13/25 15:39 Topiramate (Topiramate 25 Mg Tablet) 25 mg PO BID EDYTA Stop: 03/13/25 20:59 Discontinued Medications Labetalol HCl (Labetalol Inj 5 Mg/Ml Vial 20 Ml) 10 mg IVP Q2HR EDYTA Stop: 03/13/25 15:59 Assessment & Plan Plan 64-year-old male male with past medical history of lung cancer with metastasis to brain in remission status post-radiation and surgical therapy, 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 #Possible SMART syndrome exacerbation versus TIA versus stroke recrudescence #CVA workup #History of CVA, 2019 #SMART syndrome #History of seizures As per HPI above, patient has new bilateral blindness Of note, patient was recently discharged from the hospital for slurred speech and right-sided weakness with brain MRI being negative at that time As noted above, patient has extensive history of Smart syndrome secondary to lung cancer with metastasis to the brain status post radiation along with craniectomy On assessment, patient is hypertensive 152/81 and has bilateral blindness; however, rest of neurologic exam is largely negative Head CT showed no interval acute hemorrhage or mass effect Head neck CTA showed no significant neck arterial stenosis or LVO and EKG showed sinus rhythm with occasional PVCs and no concerning ST changes. Teleneurology was consulted in the ED, NIHSS score of 5 Plan: Neurochecks every 4 hours Bedside swallow eval DVT Prophylaxis Will consider IV fluids, patient does have history of CHF as noted below Head of bed 30 degrees Euglycemia and Avoid Hyperthermia (PRN Acetaminophen) IV labetalol if systolic blood pressure greater than 220/110; otherwise permissive hypertension Aspirin 325 mg p.o. daily Pending MR stroke protocol and EEG Will continue Phenytoin 300mg QHS, Trileptal 900mg BID and topiramate 25mg BID Will consider transfer to [facility] if MRI and EEG are negative for complicated SMART syndrome Seizure precautions #Leukocytosis Patient is presenting with leukocytosis with WBC of 14.9 Patient's urinalysis is largely negative for any signs of urinary tract infection and the patient denies having any concerning symptoms such as shortness of breath Patient is presenting afebrile Differentials include: Bacteremia, stress-induced, myeloproliferative disorder, malignancy, inflammatory Plan: Blood cultures ordered #Heart failure with reduced ejection fraction, EF 35 to 40% #Global hypokinesis #Dilated cardiomyopathy #Moderate to severe LV dysfunction Patient was recently found to have newly developed heart failure with reduced ejection fraction Echo from 01/01 showed 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 Moderate to severe LV dysfunction ejection fraction of 35 to 40%. IAS is normal to color flow Doppler and agitated saline imaging. Bubble study is negative for intracardiac shunting. Normal right atrium right ventricle normal RV function normal RA pressure and RV pressures No evidence of cardiac thrombi. Mild dilation left atrium. Aortic valve sclerosis no stenosis. Mild mitral thickening annulus calcification mild mitral regurgitation. Mild tricuspid valve regurgitation with normal PA pressures Patient was to start on guideline based medical therapy on discharge with lisinopril and Coreg, unsure if he is still taking those medications Plan: Will restart GDMT when appropriate #Benign prostate hypertrophy #Hypertension Pending official med rec; patient is on tamsulosin 0.4 mg p.o. daily Unsure what medications he takes for blood pressure Plan: Restarted tamsulosin #Lung cancer with brain metastasis in remission, by history As noted in HPI, patient has lung cancer adenocarcinoma likely secondary to extensive smoking history, [id number] Patient is currently in remission and has stopped smoking since diagnosis Plan: Follow-up with PCP and oncologist Hospital Management: Lines: PIV Diet: Cardiac, dysphagia II - pending swallow screen Bowel: Senna as needed GI prophylaxis: Not needed DVT prophylaxis: SCDs Dispo: MR stroke and EEG ordered as per teleneurology consultation for possible new stroke involving cranial nerve II dysfunction Code: DNR Patient seen and assessed with attending Dr. Marianna Singh, PGY-1
--- NOTE | 2025-02-11 16:53 | PD.EDEYE ---
ED Eye Problem RME/HPI General Chief complaint: Eye Problems Stated complaint: BLURRED VISION Time Seen by Provider: 02/11/25 13:48 Arrival date/time: 02/11/25 13:31 Limitations: no limitations RME / HPI RME / HPI Narrative: 64 year old male with history of lung CA with brain mets, smart syndrome, s/p craniotomy for resection left occipital tumor, s/p radiation and chemotherapy, hypertension, dysphagia, epilepsy, hyperlipidemia, BPH, s/p ORIF left hip, pelvic fractures, anemia, muscle weakness presents to the ED BIBA from [facility] for binocular vision loss today. Patient states last night he noticed his vision was dimmer than normal. This morning when he woke up stated he could not make out any objects or read, remaining constant since onset this morning. Patient was last known well yesterday 02/01 @ 21:00 hours. Related Data Home Medications ?Medication ?Instructions ?Recorded ?Confirmed Phenytoin Sodium Extended * 300 mg PO HS #0 caps 04/14/17 12/31/24 (DILANTIN *) oxcarbazepine 300 mg tablet 900 mg PO BID #0 tabs 04/14/17 12/31/24 (Trileptal) tamsulosin 0.4 mg capsule 0.4 mg PO QDAY 05/05/20 12/31/24 topiramate 25 mg sprinkle capsule 25 mg PO BID Seizures 11/28/22 12/31/24 Previous Rx's ?Medication ?Instructions ?Recorded aspirin 81 mg tablet,delayed 81 mg PO DAILY 30 days #30 tabs 12/08/22 release (Jerica Low Dose Aspirin) Allergies Allergy/AdvReac Type Severity Reaction Status Date / Time No Known Allergies Allergy Verified 11/16/24 10:57 Review of Systems Review of Systems Systems Reviewed: All systems reviewed, normal except as documented Past Medical History Past Medical History NEUROLOGIC: Positive Cerebrovascular Accident and Seizures CARDIAC: Positive Cardiac Disorders, Hypercholesterolemia and Hypertension RESPIRATORY: Positive Cough and Smoking GASTROINTESTINAL: Positive Gastrointestinal Disorders GENITOURINARY: Positive Genitourinary Disorders and Benign Prostatic Hyperplasia MUSCULOSKELETAL: Positive Musculoskeletal Disorders and Fractures OTHER HISTORY: Positive Chemotherapy, Radiation Therapy, Cancer and Lung Cancer Family History FAMILY HISTORY: Positive Family Cancer Surgical History SURGICAL: Positive Joint Replacement and Neurologic Surgery; Negative Cardiac Surgery Social History SMOKING STATUS: Former smoker ED Exam General Limitations: Present no limitations General appearance: Present alert, in no apparent distress and other (Confrontation exam, gaze deconjugate, unable to focus on any object, unable to see fingers or make out objects ) Head Head exam: Present atraumatic Eye Eye exam: Present PERRL and other (gaze deconjugate, unable to focus on any object, unable to see fingers or make out objects, eyes moved together) ENT ENT exam: Present normal exam, normal oropharynx and mucous membranes moist Neck Neck exam: Present normal inspection, full ROM and trachea midline Chest Chest inspection: Present normal inspection and symmetric chest wall rise Respiratory Respiratory exam: Present normal lung sounds bilaterally Cardiovascular Cardiovascular exam: Present regular rate, normal rhythm and normal heart sounds Abdominal Exam Abdominal exam: Present soft and normal bowel sounds Extremities Exam Extremities exam: Present full ROM Back Exam Back exam: Present normal inspection and full ROM Neurological Exam Neurological exam: Present alert, oriented X3, CN II-XII intact and other (Strength in upper and lower extremities bilaterally 5/5) Psychiatric Psychiatric exam: Present normal affect and normal mood Skin Skin exam: Present warm, dry, intact and normal color Course Quality Measures Suspected type of Stroke: Non Acute Last known well (date): 02/10/25 Last known well (time): 21:00 Tenecteplase given: Reason(s) TPA not given: Outside the time window not given stroke Orders Category Date Time Status Bedside Blood Glucose NOW Care 02/11/25 13:48 Active COVID-19 Screening Questionnaire NOW Care 02/11/25 15:10 Active Commodity Supervisor NOW Care 02/11/25 13:48 Active Continuous Pulse Oximetry NOW Care 02/11/25 13:48 Completed Decision to Admit X1 Care 02/11/25 15:09 Active EKG (ED ONLY) *Do not use* NOW Care 02/11/25 13:48 Completed In and Out Catheter NEEDED Care 02/11/25 13:48 Active Insert IV NOW Care 02/11/25 13:48 Active NIH Stroke Scale now Care 02/11/25 13:48 Active NPO NOW Care 02/11/25 13:48 Active Neuro Check Q15MIN Care 02/11/25 13:48 Active Nurse Swallow Screen x1 Care 02/11/25 13:48 Active Consult to Neurology / Tele-Neurology Routine Cons 02/11/25 13:[address] angio stroke protocol Stat Exams 02/11/25 13:[address] stroke protocol Stat Exams 02/11/25 13:48 Completed EKG (ED Only) Stat Exams 02/11/25 13:48 Draft Alcohol, Blood Medical Stat Lab 02/11/25 14:00 Completed CBC Stat Lab 02/11/25 14:00 Completed Comprehensive Metabolic Panel Stat Lab 02/11/25 14:00 Completed Drug Screen,Urine Stat Lab 02/11/25 15:00 Completed Magnesium Stat Lab 02/11/25 14:00 Completed Partial Thromboplastin Time Stat Lab 02/11/25 14:00 Completed Prothrombin Time with INR Stat Lab 02/11/25 14:00 Completed Troponin I Stat Lab 02/11/25 14:00 Completed Urinalysis Stat Lab 02/11/25 15:00 Completed Sodium Chloride 0.9% 1000 ml [Ns] 1,000 ml Med 02/11/25 14:00 Active IV Q10H Vital Signs Vital signs: Vital Signs Temperature 98.6 F 02/11/25 13:43 Pulse Rate 83 02/11/25 13:43 Respiratory Rate 19 02/11/25 13:43 Blood Pressure 152/81 H 02/11/25 13:43 Pulse Oximetry (%) 97 02/11/25 13:43 Oxygen Delivery Method Room Air 02/11/25 13:43 Eye MDM Narrative MDM Narrative:: Britt Gutierrez am scribing for and in the presence of Dr. Mckay. Patient data External records reviewed:: [facility] previous records, EMS form and [facility] (I reviewed PMHx and medication list from ) Clinical information provided by:: patient and EMS Social determinants that could affect healthcare access:: housing (SNF resident) Patient has the following chronic illnesses:: lung CA with brain mets, smart syndrome, s/p craniotomy for resection left occipital tumor, s/p radiation and chemotherapy, hypertension, dysphagia, epilepsy, hyperlipidemia, BPH, s/p ORIF left hip, pelvic fractures, anemia, muscle weakness How is presenting disease/condition affected by chronic disease/condition?: exacerbated by Evaluation data The following diagnostics were reviewed and interpreted by me:: lab results, radiology exam(s) and EKG tracing(s) (EKG @ 15:24. Sinus rhythm with occasional PVC's, rate 86, no STEMI, MI int 168ms, QRS 118ms, QT/QTc 355/399 ms. ) Lab and/or radiology exams considered but not ordered:: None Interpretation Summary: Ordering Physician: Jonah Mckay MD Date of Service: 02/11/25 Procedure(s): CT stroke protocol Accession Number(s): [id number] cc: Jonah Mckay MD; Champ Wu MD~ Examination: CT brain head without contrast. 2-D sagittal coronal reconstructions Date and time of exam:February 11, 2025 1352 hours Comparison December 31, 2024 INDICATIONS: Stroke alert, onset focal neurologic deficit, blurred vision right-sided body weakness today CTDI: vol (mGy):55.6 DLP: (mGycm):1230 Technique: Multiple CT axial sections of the brain have been obtained, 5 mm slice thickness. Contrast has not been administered. 2-D sagittal, coronal reconstructions have been obtained Low dose protocols were performed. One or more of the following dose reduction techniques were used; automated exposure control, adjustment of the mA and/or KV according to patient size, use of iterative reconstruction technique. Findings: No significant ventricular enlargement. Again noted old infarct or encephalomalacia left posterior parietal occipital lobe adjacent to craniotomy defect Old basal ganglia infarcts Small old appearing infarct left brainstem noted on the prior study Intra-axial or extra-axial hemorrhage density is not seen. No mass effect or midline shift Basal cisterns are not remarkable. Fourth ventricle is midline. Cranial vault intact. Impression: No interval acute hemorrhage, mass effect or midline shift Dictated By: Champ Wu MD Signed By: <Electronically signed by Champ Wu MD in OV> 02/11/25 1400 Ordering Physician: Jonah Mckay MD Date of Service: 02/11/25 Procedure(s): CT angio stroke protocol Accession Number(s): [id number] cc: Jonah Mckay MD; Champ Wu MD~ Examination: CTA carotids with intravenous contrast CTA brain, head with intravenous contrast. 2-D sagittal, coronal reconstructions. 3-D reconstructions. Exam date and time: February 11, 2025 1423 hours Comparison December 31, 2024 INDICATIONS: Stroke alert, onset focal neurologic deficit today CTDI: vol (mGy) 11.6 DLP: (mGycm) 470 Technique: Multiple CTA axial brain, head carotid images post intravenous contrast injection 75 cc, [id number]. 2-D sagittal, coronal reconstructions. 3-D reconstructions, 3-D post processing including vascular maximum intensity projection images. Low dose protocols were performed. One or more of the following dose reduction techniques were used; automated exposure control, adjustment of the mA and/or KV according to patient size, use of iterative reconstruction technique. Findings: No significant common carotid artery bifurcation or internal carotid artery stenoses Dominant left vertebral artery with no significant stenoses No cerebral large vessel arterial occlusions, thrombus, dissection or cerebral aneurysm IMPRESSION: No significant neck arterial stenoses No cerebral large vessel arterial occlusions Dictated By: Champ Wu MD Signed By: <Electronically signed by Champ Wu MD in OV> 02/11/25 1438 Medications / Prescriptions Medications or Prescriptions considered but not ordered:: None Medication administrations:: Medication Administration History Acetaminophen (Acetaminophen 325 Mg Tablet) 650 mg PO Q6H PRN PRN Reason: Pain 1-3 and/or Fever >100.1 Stop: 03/13/25 15:39 Aspirin (Aspirin 325 Mg Tablet) 325 mg PO QDAY [facility] Stop: 03/13/25 15:44 Last Admin: 02/11/25 17:21 Dose: 325 mg Documented By: MM Sodium Chloride (Ns) 1,000 mls @ 100 mls/hr IV Q10H EDYTA Stop: 03/13/25 13:59 Last Admin: 02/11/25 14:30 Dose: 100 mls/hr Documented By: MM Magnesium Sulfate (Magnesium Sulfate Ivpb) 4 gm in 50 mls @ 12.5 mls/hr IV X1 ONE Stop: 02/11/25 20:29 Last Admin: 02/11/25 17:21 Dose: 12.5 mls/hr Documented By: MM Labetalol HCl (Labetalol Inj 5 Mg/Ml Vial 20 Ml) 10 mg IVP Q2HR PRN PRN Reason: BP >220/120 and HR >70 Stop: 03/13/25 15:59 Ondansetron HCl (Ondansetron Inj 2 Mg/Ml Inj 2 Ml) 4 mg IVP Q6H PRN; Protocol PRN Reason: NAUSEA OR VOMITING Stop: 03/13/25 15:39 Oxcarbazepine (Oxcarbazepine 150 Mg Tablet (Non-Formulary)) 900 mg PO BID EDYTA Stop: 03/13/25 20:59 Phenytoin (Phenytoin 100 Mg Capsr) 300 mg PO HS EDYTA Stop: 03/13/25 20:59 Sennosides (Senna Tablet) 1 tab PO QDAY PRN; Protocol PRN Reason: constipation Stop: 03/13/25 15:39 Tamsulosin HCl (Tamsulosin Hcl 0.4 Mg Capsule) 0.4 mg PO QDAY EDYTA Stop: 03/14/25 08:59 Topiramate (Topiramate 25 Mg Tablet) 25 mg PO BID EDYTA Stop: 03/13/25 20:59 Discontinued Medications Labetalol HCl (Labetalol Inj 5 Mg/Ml Vial 20 Ml) 10 mg IVP Q2HR EDYTA Stop: 03/13/25 15:59 Labetalol HCl (Labetalol Inj 5 Mg/Ml Vial 20 Ml) 10 mg IVP Q2HR PRN PRN Reason: Systolic >180 and HR >70 Stop: 03/13/25 15:59 See above Consultations Consultation(s) initiated? (list below): Yes Consultation #1 (Physician, Specialty, Details): I spoke with teleneurologist Dr. Branham who states patient is not a tpa candidate. At this time pending head/neck CTA. Time: 14:26 Consultation #2 (Physician, Specialty, Details): States patient needs to be admitted for further work up, MRI of brain, EEG. Stated that she spoke with the who reports if he needs any further treatment as he is complex case, with sweet syndrome and now unable to see, she would prefer the patient go to tertiary center like [facility] if further intervention is indicated. Time: 15:00 Consultation #3 (Physician, Specialty, Details): I spoke with resident Dr. Singh working with Dr. Cabral regarding admission. Discussed patients PMHx, HPI, ED course, exam findings, labs, and radiology results. The hospitalist agree to accept the patient for admission. Diagnosis Eye Problem Differential Diagnosis: other (Brain tumor, acute glaucoma, retinal bleed, CVA. ) Most likely diagnosis given after review of the tests above:: Acute vision loss Smart syndrome Brain metastasis with primary lung cancer Seizure disorder Admission Indicated Admission indicated?: indicated Admission Request Was there a request for admission?: Yes Admission Attestation Admission request attestation: Discussed case with [] from Hospitalist service regarding admission. Discussed patients ED course, exam findings, labs, and radiology results. The Hospitalist [agrees,declines] to accept the patient for admission. Disposition Plan Disposition Plan: Admit Critical Care Time Critical Care Time Critical Care Time: Yes Total Critical Care Time (min.): 35 Attestation: The high probability of sudden, clinically significant deterioration in the patient's condition required the highest level of my preparedness to intervene urgently. The services I provided to this patient were to treat and/or prevent clinically significant deterioration. Services included the following: chart data review, reviewing nursing notes and/or old charts, documentation time, decorating consultant collaboration regarding findings and treatment options, medication orders and management, direct patient care, vital sign assessments and ordering, interpreting and reviewing diagnostic studies and lab tests. Aggregate critical care time includes only time during which I was engaged in work directly related to the patient's care, as described above, whether at bedside or elsewhere in the Emergency Department. It did not include time spent performing other reported procedures or the services of residents, students, nurses or physician assistants. Discharge Plan Plan Patient Disposition: Admit Acute Care w/in Hospital Problem List Clinical Impression: Acute visual loss, Metastasis to brain, Seizure disorder
[2025-02-11] MEDS: Magnesium Sulfate 4 GM Ivpb 4 GM/50 ML BAG IV (17:21)
[2025-02-11] MEDS: Aspirin 325 MG TABLET PO (17:21)
--- NOTE | 2025-02-11 17:21 | RESP.EEG ---
EEG ready to be read
[2025-02-11 19:13] LABS: Albumin, Serum 4.9 gm/dL (3.4-4.8); Anion Gap 10 (7-16); BUN/Creatinine Ratio 13 Ratio (12-20); Blood Urea Nitrogen 9 mg/dL (9-23); Carbon Dioxide 23.8 mMol/L (20.0-31.0); Chloride 92 mMol/L (98-107); Creatinine (Component) 0.7 mg/dL (0.6-1.3); Glucose 129 mg/dL (74-106); Osmolality,Calculated 254 (275-295); Phosphorous 2.5 mg/dL (2.4-5.1); Potassium 3.8 mMol/L (3.4-5.1); Sodium 126 mMol/L (136-145); eGFR > 60 See Note
[2025-02-11] MEDS: TOPIRAMATE 25 MG TABLET PO (22:52)
[2025-02-11] MEDS: PHENYTOIN 100 MG CAPSR 300 MG PO (22:52)
[2025-02-12] VITALS: BP 121/74; PULSE 76; PULSE 77; RESP 12; TEMP 36.6; O2SAT 100
[2025-02-12] MEDS: MELATONIN 3 MG TABLET PO (00:51)
[2025-02-12] MEDS: SODIUM CHLORIDE 0.9% 1000 ML 1,000 ML 100 ML IV (00:55)
[2025-02-12 04:00] VITALS: BP 114/75; PULSE 76; PULSE 78; RESP 15; TEMP 36.7; O2SAT 100
[2025-02-12 05:27] LABS: Basophils # (Auto) 0.1 Thou/mm3 (0.0-0.2); Basophils % (Auto) 1 % (0-2.5); Eosinophils # (Auto) 0.1 Thou/mm3 (0.0-0.5); Eosinophils % (Auto) 1 % (0-10); Hematocrit 33.4 % (41.0-53.0); Hemoglobin 12.2 g/dL (13.5-16.0); Immature Granulocytes % (Auto) 1 % (0-0); Immature Granulocytes Auto 0.06 Thou/mm3 (0.00-0.00); Lymphocytes # (Auto) 2.1 Thou/mm3 (1.0-4.8); Lymphocytes % (Auto) 18 % (10-50); Mean Corpuscular HGB Conc 36.5 g/dl (31.0-37.0); Mean Corpuscular Volume 79 fL (80-100); Monocytes # (Auto) 1.6 Thou/mm3 (0.0-0.8); Monocytes % (Auto) 13 % (0-12); Neutrophils % (Auto) 68 % (37-80); Nucleated Red Blood Cell % 0 /100 WBC (0); Platelet Count 252 Thou/mm3 (140-440); RDW Standard Deviation 40.2 fL (35.1-43.9); Red Blood Count 4.21 Miln/mm3 (4.50-5.90); White Blood Count 11.8 Thou/mm3 (3.8-10.6)
[2025-02-12 05:55] VITALS: BMI 22.2
[2025-02-12 06:01] LABS: Anion Gap 9 (7-16); BUN/Creatinine Ratio 13 Ratio (12-20); Blood Urea Nitrogen 8 mg/dL (9-23); Chloride 94 mMol/L (98-107); Creatinine (Component) 0.6 mg/dL (0.6-1.3); Estimated Creatinine Clearance 130.9 mL/min (>60); Glucose 106 mg/dL (74-106); Magnesium 1.8 mg/dL (1.6-2.6); Osmolality,Calculated 249 (275-295); Phosphorous 2.5 mg/dL (2.4-5.1); Sodium 125 mMol/L (136-145); eGFR > 60 See Note
[2025-02-12 08:00] VITALS: BP 137/71; PULSE 77; PULSE 78; RESP 20; TEMP 36.7; O2SAT 96
[2025-02-12] MEDS: Aspirin 325 MG TABLET PO (09:55)
[2025-02-12] MEDS: TOPIRAMATE 25 MG TABLET PO (09:55)
[2025-02-12] MEDS: TAMSULOSIN HCL 0.4 MG CAPSULE PO (09:55)
--- NOTE | 2025-02-12 11:46 | PD.RESPRO ---
Documentation for date of: 02/12/25 Subjective Subjective Interval history: 02/12/2025: No acute overnight events to report. Patient seen and examined in hospital bed at presenting baseline with cranial nerve II dysfunction still persistent but rest of neurologic exam is grossly unremarkable. Patient's brain MRI is positive for acute infarcts in the right occipital lobe and right temporal lobe. Teleneurology reassessed the patient and recommendation was to increase the patient's topiramate to 50 mg p.o. twice daily from 25 mg, initiate DAPT with Plavix 75 mg and aspirin 81 mg p.o. daily. EEG has been taken and is pending read. Will initiate transfer to [facility] so that the patient can be seen by that their neurologist Dr. Ndiaye. As noted in the event note, patient's oxcarbazepine was not given; moreover, we will give morning dose and a x 1 of 450 mg oxcarbazepine to offset the missed dose. Will continue to monitor for any acute changes, pending transfer to [facility]. Exam Vital Signs Temp Pulse Resp BP Pulse Ox O2 Del Method 98.1 F 77 20 137/71 H 96 Room Air 02/12/25 08:00 02/12/25 08:00 02/12/25 08:00 02/12/25 08:00 02/12/25 08:00 02/12/25 08:00 Narrative Exam Physical Exam: GENERAL: Awake, answering questions appropriately, appears stated age HEENT: NC/AT. Moist mucosa. PERRLA/EOMI. Poor dentition CARDIO: Heart RRR, no obvious murmurs, no JVD. PULM: No coughing or visible SOB. Lungs CTA B/L. GI: Abdomen soft, NT/ND, +BS. SKIN/MSK/EXT: No wounds/discoloration/rashes/edema/amputations. +Pedal pulses present B/L. NEURO: Oriented x3, Moves extremities x4, cranial nerve II (optic) dysfunction, cranial nerves III to XII intact, vector control specialist strength 5 out of 5, muscle strength 5 out of 5 on bilateral upper and lower extremities. Sensations grossly intact. Objective Labs 02/13/25 04:51 02/13/25 04:51 Labs: Laboratory Results - last 24 hr 02/11/25 02/11/25 02/11/25 14:00 15:00 18:46 WBC 14.9 H RBC 4.72 Hgb 13.9 Hct 37.8 L MCV 80 MCH 29.4 MCHC 36.8 RDW Std Deviation 41.3 Plt Count 286 Neut % (Auto) 76 Lymph % (Auto) 14 Major % (Auto) 8 Eos % (Auto) 1 Baso % (Auto) 0 Neut # (Auto) 11.4 H Lymph # (Auto) 2.1 Major # (Auto) 1.1 H Eos # (Auto) 0.2 Baso # (Auto) 0.1 Immature Gran # (Auto) 0.06 H Absolute Nucleated RBC 0.00 Immature Gran % 0 Nucleated RBC % 0 PT 10.4 INR 0.9 APTT 25.9 Sodium 128 L 126 L Potassium 3.7 3.8 Chloride 92 L 92 L Carbon Dioxide 26.2 23.8 Anion Gap 10 10 BUN 10 9 Creatinine 0.7 0.7 Estim Creat Clear Calc 109.4 117.0 eGFR > 60 > 60 BUN/Creatinine Ratio 14 13 Glucose 128 H 129 H Calculated Osmolality 258 L 254 L Calcium 9.1 9.0 Corrected Calcium 9.1 9.0 Phosphorus 2.5 Magnesium 1.7 Total Bilirubin 0.2 L AST 17 ALT 16 Alkaline Phosphatase 124 H Troponin I < 0.020 Total Protein 7.3 Albumin 4.8 4.9 H Globulin 2.5 Albumin/Globulin Ratio 1.9 Ur Collection Type Catheter Urine Color Lt-Yellow Urine Clarity Hazy Urine pH 7.0 Ur Specific [place] 1.027 Urine Protein Negative Urine Glucose (UA) Negative Urine Ketones Negative Urine Blood Negative Urine Nitrite Negative Urine Bilirubin Negative Urine Urobilinogen (Auto) Negative Ur Leukocyte Esterase Negative Urine RBC 7 H Urine WBC 0 Ur Squamous Epith Cells 0 Amorphous Crystals Present A Urine Bacteria Rare Urine Opiates Screen Negative Urine Fentanyl Screen Negative Ur Barbiturates Screen Negative U Amphetamin/Meth Scrn Negative U Benzodiazepines Scrn Negative U Cocaine Metab Screen Negative U Marijuana (THC) Screen Negative Ethyl Alcohol < 3.0 02/12/25 04:49 WBC 11.8 H RBC 4.21 L Hgb 12.2 L Hct 33.4 L MCV 79 L MCH 29.0 MCHC 36.5 RDW Std Deviation 40.2 Plt Count 252 D Neut % (Auto) 68 Lymph % (Auto) 18 Major % (Auto) 13 H Eos % (Auto) 1 Baso % (Auto) 1 Neut # (Auto) 8.0 H Lymph # (Auto) 2.1 Major # (Auto) 1.6 H Eos # (Auto) 0.1 Baso # (Auto) 0.1 Immature Gran # (Auto) 0.06 H Absolute Nucleated RBC 0.00 Immature Gran % 1 H Nucleated RBC % 0 PT INR APTT Sodium 125 L Potassium 4.0 Chloride 94 L Carbon Dioxide 22.0 Anion Gap 9 BUN 8 L Creatinine 0.6 Estim Creat Clear Calc 130.9 eGFR > 60 BUN/Creatinine Ratio 13 Glucose 106 Calculated Osmolality 249 L Calcium 8.0 L Corrected Calcium Phosphorus 2.5 Magnesium 1.8 Total Bilirubin AST ALT Alkaline Phosphatase Troponin I Total Protein Albumin Globulin Albumin/Globulin Ratio Ur Collection Type Urine Color Urine Clarity Urine pH Ur Specific [place] Urine Protein Urine Glucose (UA) Urine Ketones Urine Blood Urine Nitrite Urine Bilirubin Urine Urobilinogen (Auto) Ur Leukocyte Esterase Urine RBC Urine WBC Ur Squamous Epith Cells Amorphous Crystals Urine Bacteria Urine Opiates Screen Urine Fentanyl Screen Ur Barbiturates Screen U Amphetamin/Meth Scrn U Benzodiazepines Scrn U Cocaine Metab Screen U Marijuana (THC) Screen Ethyl Alcohol Quality Measures Quality Measures stroke Suspected type of Stroke: Non Acute Last known well (date): 02/10/25 Last known well (time): 21:00 Tenecteplase given: Reason(s) Tenecteplase not given: Outside the time window not given Rehab services: PT evaluation ordered VTE Prophylaxis: mechanical Antithrombotic by day 2:: ordered Statin ordered: <75 y/o high intensity dose Anticoagulation ordered for A-fib or flutter (current or hx): not indicated Assessment & Plan Assessment Current Active Medications: Generic Name Dose Route Start Last Admin Trade Name Freq PRN Reason Stop Dose Admin Acetaminophen 650 mg 02/11/25 15:40 Acetaminophen 325 Mg Tablet PO 03/13/25 15:39 Q6H PRN Pain 1-3 and/or Fever >100.1 Aspirin 325 mg 02/11/25 15:45 02/12/25 09:55 Aspirin 325 Mg Tablet PO 03/13/25 15:44 325 mg QDAY EDYTA Administration Atorvastatin Calcium 40 mg 02/12/25 21:00 Atorvastatin Calcium 20 Mg Tablet PO 03/14/25 20:59 HS EDYTA Labetalol HCl 10 mg 02/11/25 16:47 Labetalol Inj 5 Mg/Ml Vial 20 Ml IVP 03/13/25 15:59 Q2HR PRN BP >220/120 and HR >70 Ondansetron HCl 4 mg 02/11/25 15:40 Ondansetron Inj 2 Mg/Ml Inj 2 Ml IVP 03/13/25 15:39 Q6H PRN NAUSEA OR VOMITING Protocol Oxcarbazepine 900 mg 02/11/25 21:00 02/12/25 09:55 Oxcarbazepine 150 Mg Tablet (Non-Formulary) PO 03/13/25 20:59 Not Given BID EDYTA Phenytoin 300 mg 02/11/25 21:00 02/11/25 22:52 Phenytoin 100 Mg Capsr PO 03/13/25 20:59 300 mg HS EDYTA Administration Sennosides 1 tab 02/11/25 15:40 Senna Tablet PO 03/13/25 15:39 QDAY PRN constipation Protocol Tamsulosin HCl 0.4 mg 02/12/25 09:00 02/12/25 09:55 Tamsulosin Hcl 0.4 Mg Capsule PO 03/14/25 08:59 0.4 mg QDAY EDYTA Administration Topiramate 25 mg 02/11/25 21:00 02/12/25 09:55 Topiramate 25 Mg Tablet PO 03/13/25 20:59 25 mg BID EDYTA Administration Plan 64-year-old male male with past medical history of lung cancer with metastasis to brain in remission status post-radiation and surgical therapy, 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 #Possible SMART syndrome exacerbation versus TIA versus stroke recrudescence #CVA workup #History of CVA, 2019 #SMART syndrome #History of seizures As per HPI above, patient has new bilateral blindness Of note, patient was recently discharged from the hospital for slurred speech and right-sided weakness with brain MRI being negative at that time As noted above, patient has extensive history of Smart syndrome secondary to lung cancer with metastasis to the brain status post radiation along with craniectomy On assessment, patient is hypertensive 152/81 and has bilateral blindness; however, rest of neurologic exam is largely negative Head CT showed no interval acute hemorrhage or mass effect Head neck CTA showed no significant neck arterial stenosis or LVO and EKG showed sinus rhythm with occasional PVCs and no concerning ST changes. Teleneurology was consulted in the ED, NIHSS score of 5 On home Phenytoin 300mg QHS, Trileptal 900mg BID and topiramate 25mg BID Patient did not recieve 2 doses of his Trileptal; EVENT NOTE explains reason Plan: Initiated transfer to [facility] for patient to be seen by his neurologist Dr. Franck Ndiaye Will give 450mg of Trileptal x1 for patient missing dose and continue current regimen (above) Increased patient's Topiramate to 50mg PO BID Phenytoin Level Aspirin 81mg and Clopidogrel 75mg by mouth daily as per teleneuro consultation Neurochecks every 4 hours PT and Speech evaluation DVT Prophylaxis Head of bed 30 degrees Euglycemia and Avoid Hyperthermia (PRN Acetaminophen) IV labetalol if systolic blood pressure greater than 220/110; otherwise permissive hypertension Pending MR stroke protocol and EEG Seizure precautions, IV Ativan 2mg prn for breaktrough seizures q30m #Hypotonic Hyponatremia Patient appears euvolemic, calculate serum osm of 249 Urinanalysis shows specific gravity of 1.027 equating to high urine osm Differentials include: drug-induced hyponatremia from Trileptal vs. SIADH vs. less likely to be adrenal insufficiency Tele neurologist believes likely reason is Trileptal, but no need to adjust dosage Given x1 of 1g NaCl tablet Plan: Sodium Q6h Fluid restriction of 1800ml Monitor with morning labs #Leukocytosis, downtrending Patient is presenting with leukocytosis with WBC of 14.9 => 11.8 Patient's urinalysis is largely negative for any signs of urinary tract infection and the patient denies having any concerning symptoms such as shortness of breath Patient is presenting afebrile Differentials include: Bacteremia, stress-induced, myeloproliferative disorder, malignancy, inflammatory Plan: Blood cultures ordered #Heart failure with reduced ejection fraction, EF 35 to 40% #Global hypokinesis #Dilated cardiomyopathy #Moderate to severe LV dysfunction Patient was recently found to have newly developed heart failure with reduced ejection fraction Echo from 01/01 showed 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 Moderate to severe LV dysfunction ejection fraction of 35 to 40%. IAS is normal to color flow Doppler and agitated saline imaging. Bubble study is negative for intracardiac shunting. Normal right atrium right ventricle normal RV function normal RA pressure and RV pressures No evidence of cardiac thrombi. Mild dilation left atrium. Aortic valve sclerosis no stenosis. Mild mitral thickening annulus calcification mild mitral regurgitation. Mild tricuspid valve regurgitation with normal PA pressures Patient was to start on guideline based medical therapy on discharge with lisinopril and Coreg, unsure if he is still taking those medications Plan: Will restart GDMT when appropriate #Benign prostate hypertrophy #Hypertension Pending official med rec; patient is on tamsulosin 0.4 mg p.o. daily Unsure what medications he takes for blood pressure Plan: Continue tamsulosin #Lung cancer with brain metastasis in remission, by history As noted in HPI, patient has lung cancer adenocarcinoma likely secondary to extensive smoking history, [id number] Patient is currently in remission and has stopped smoking since diagnosis Plan: Follow-up with PCP and oncologist Hospital Management: Lines: PIV Diet: Cardiac, dysphagia II Bowel: Senna as needed GI prophylaxis: Not needed DVT prophylaxis: SCDs Dispo: Pending transfer to [facility], teleneurology consultation for acute infarct of right occipital lobe right temporal lobe Code: DNR Patient seen and assessed with attending Dr. Panchito Singh, PGY-1 Attending Provider Attestation/Addendum I, Jennifer Flanagan DO, attest that I was physically present for the hayward portions of the service and evaluated the patient with the resident and I reviewed and discussed the case with the resident and agree with the resident's findings and plans of care as documented above Patient seen and evaluated this AM with daughter at bedside. Patient laying in bed comfortable and states he cannot see. Upon further prompting, patient states he can see some light and shape, but no definition. Patient was not able to see my finger, but extraocular muscles are intact. Patient had some trouble with coordination of his left lower extremity. MS 4/5 in all four extremities. Per daughter, patient has become very forgetful and needs frequent prompting. He has been seen at [facility] in the past for SMART syndrome. Patient was given 1 sodium tablet due to downtrending hyponatremia, concerning for worsening of neurologic symptoms and sodium trended every 6 hours. Attempts were made to reach out to patient's neurologist at [facility], Dr. Franck Ndiaye. However, had not heard back and thus, request was made for tele-neurologist to evaluate patient. I discussed the case with Dr. Nolan over the phone at 15:34, who recommended giving a total of 2g of magnesium for his headache and starting patient on DAPT for at least 21 days. Patient did not receive his evening dose of Trileptal and received his morning dose of Trileptal at around 2pm. In order to catch up to missed dose, another 450mg of Trileptal was recommended, as well as increase of topiramate from 25mg to 50mg PO BID. Phenytoin level was also ordered. Transfer to [facility] was recommended by teleneurology as patient is well known to their service and further studies could be done such as continuous EEG. Discussed concern for worsening hyponatremia due to AEDs, but as per teleneurology, did not recommend aggressively treating. Transfer to [facility] was subsequently initated after discussion wtih teleneuro. Patient's daughter Valeri was also updated regarding plan of care. Resident spoke with [facility] neurology regarding case and did not recommend transfer as patient had previous L occipital lobe infarct and now acute right occipital infarct resulting in bilateral vision loss. DAPT for 21 days was recommended and for Afib to be ruled out. I also discussed the concern for hyponatremia with [facility] neurology at 8pm who recommended further workup due to concern for cerebral salt wasting vs SIADH in the acute setting as worsening of hyponatremia can worsen his neurological status and result in seizures as his baseline sodium is within normal range . She stated that since the patient h was last seen at [facility] in 2019 per records, it is assumed that patient has been well controlled for his antiepileptic medications. It is recommended to keep his current regimen of antiepileptics and fix the sodium. Patient had received NS overnight resulting in worsening of hyponatremia throughout the day. Patient is more likely to have SIADH due to his medications rather than cerebral salt wasting. Will order serum uric acid level, if low, can be indicative of SIADH. Will start patient on salt tabs and continue to trend sodium.
[2025-02-12 12:00] VITALS: BP 121/69; PULSE 65; PULSE 73; RESP 14; TEMP 36.6; O2SAT 96
--- NOTE | 2025-02-12 12:22 | PC.SS ---
SS met with patient who is alert/oriented. Patient was able to verify demographics. Patient states he resides with his grandson, Quique. Patient was admitted for stroke r/o. Hx: lung ca. with mets to brain. Patient states he's had radiation prior with Dr. Clifford. Patient states he's independent with ADL's. Daughter provides transportation. Pharmacy: [facility]. PcP: Dr. Caputo. Patient verbalized his alt medical decision maker is his daughter, Valeri. Discharge plan is to return home. alt medical decision maker: Valeri, daughter,
[2025-02-12 13:11] LABS: Sodium 124 mMol/L (136-145)
--- NOTE | 2025-02-12 13:52 | EVENTNT_ITS ---
Documentation for date of: 02/12/25 Event Note Event Note: 02/12/2025: Called by RN around 2:00pm for patient Mr. Garcia in room 277. Nurse states that daughter bedside noticed the patient is reporting headache and sneezing which he apparently does before having a seizure. The patient did not have any witnessed seizures at any point during this time. Patient apparently had episode of sneezing and his head remained in flexed position per nurse. Patient seen and assessed; airway/breathing/circulation are intact, vitals are stable. Physical Exam: GENERAL: Awake, answering questions appropriately HEENT: NC/AT. Moist mucosa. PERRLA/EOMI. CARDIO: Heart RRR, no obvious murmurs, no JVD. PULM: No coughing or visible SOB. Lungs CTA B/L. GI: Abdomen soft, NT/ND, +BS. SKIN/MSK/EXT: No wounds/discoloration/rashes/edema/amputations noted. +Pedal pulses present B/L. Moves extremities x4. NEURO: Oriented x3, CN 3-12 intact, CN 2 not intact (bilateral vision deficits), muscle strength 5/5 bilaterally on upper/lower extremities. Sensations grossly intact. Nurse notified MD that patient has not been receiving his Trileptal 900mg by mouth twice a day anti-seizure medications due to apparently pharmacy not di spensing or having medication. Ordered x1 Trileptal 900mg for missed morning dose and will continue Trileptal regimen which was ordered since patient was first admitted. Frandy Singh, PGY-1
[2025-02-12] MEDS: OXCARBazepine 150 MG TABLET (NON-FORMULARY) 900 MG PO ×2 (14:17→20:46)
[2025-02-12] MEDS: SODIUM CHLORIDE 1 GM TABLET PO ×2 (14:50→20:47)
[2025-02-12] MEDS: Magnesium Sulfate 1 gm Ivpb 1 GM/100 ML BAG IV ×2 (15:33→16:40)
[2025-02-12 16:00] VITALS: BP 119/66; PULSE 73; PULSE 78; RESP 22; TEMP 36.8; O2SAT 96
--- NOTE | 2025-02-12 16:01 | PC.NURSE ---
Pt's dtr called and stated that she spoke with someone at [facility] named Fer who provided the number of [phone] for [facility] to call if pt is needing to be transferred to [facility].
--- NOTE | 2025-02-12 16:16 | PC.CC ---
Addendum entered by Radha Velázquez RN 02/12/25 19:27: 1909 I called [facility] and spoke to Sabiha. She informed me that transfer is canceled. I informed her per Dr. Flanagan pt Na level is 124 and she think pt epileptic medications are dropping the Na level. She stated she will arrange another peer to peer call between neurology and Dr. Flanagan. Direct number for Dr. Flanagan is given to TC. [phone] Dr. Flanagan stated [facility] neurology had peer to peer with Dr. Singh and neurology said pt doesn't need transfer and can see them as outpatient. Dr. Flanagan stated pt Na level is 124 and she think pt epileptic medications are dropping the level. I informed her that I will reach out to [facility] TC. Dr. Flanagan is OK with me giving her number for peer to peer. Addendum entered by Radha Velázquez RN 02/12/25 18:13: 1720 pushed the rest of the imaging via [employer]. 1715 CT images pushed over via [employer]. Unable to share the rest of imaging because limit to share images on [employer] is met. Addendum entered by Radha Velázquez RN 02/12/25 16:35: 1635 clinicals sent to [facility] TC. Original Note: 1616 Called [facility] TC, spoke to Bert and initiated the transfer. He stated to fax clinicals and push images through [employer]. [address] Flanagan that pt needs to be transferred to [facility] for SMART syndrome need neurology services. Per Dr. Flanagan pt had stroke and tele neurology recommending transfer. Dr. Flanagan also stated pt is complex, has extensive history and followed by Dr. Franck Ndiaye/ neurology at [facility].
--- NOTE | 2025-02-12 16:23 | ESDS_ITS ---
<Statement entered by Jennifer Flanagan DO - 02/15/25 07:42> I, Jennifer Flanagan DO, attest that I was physically present for the hayward portions of the service and evaluated the patient with the resident and I reviewed and discussed the case with the resident and agree with the resident's findings and plans of care as documented above Planned Discharge Date 02/12/25 DS: Providers Provider Date of admission: 02/11/25 15:40 Primary care physician: Annika Caputo MD Admitting Provider: Dorian Cabral MD Attending Provider on Admission: Jennifer Flanagan DO Consults: 02/11/25 13:48 Consult to Neurology / Tele-Neurology Routine Comment: Consulting Provider: [facility] 02/12/25 14:09 Referral Physical Therapy Routine Comment: Physician Instructions: Referral Speech Therapy Routine Comment: Attending Provider on DC: Jennifer Flanagan DO Discharging Provider: Frandy Singh MD DS: Diagnosis Problem List Completed Was Problem List Reviewed/Reconciled?: Yes Hospital Course Hospital Course Hospital course: 64-year-old male with past medical history of lung cancer with metastasis to brain in remission status postradiation surgical therapy, 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 Patient states that he can see some light but cannot distinguish objects and visual field is completely lost. In the ED, patient was hypertensive 152/81, heart rate of 83, respiratory rate of 19 but saturating 97 on room air. Pertinent findings include WBC of 14.9, hemoglobin of 13.9, creatinine 0.7, troponin less than 0.020, urinalysis was negative for any signs of infection, U- Tox was positive for marijuana. Head CT showed no interval acute hemorrhage or mass effect, head and neck CTA showed no significant neck arterial stenosis or LVO and EKG showed sinus rhythm with occasional PVCs and no concerning ST alyssia nges. Patient was admitted for new bilateral blindness with teleneurology consultation, brain MRI and EEG ordered. Teleneurology recommended frequent neurochecks, speech and physical therapy, antihypertensives if blood pressure was greater than 220/120, aspirin 325, continue the patient's seizure medications and seizure precautions. Sometime around 2 PM on 02/12, nurse alerted physician that the patient had not received 2 doses of oxcarbazepine (1 of 3 antiseizure medication that bit patient's on) as noted on event note for reasoning. Patient given missed morning dose along with a x 1 of half dose. Patient did not experience any seizure during hospitalization. Patient's brain MRI was positive for acute infarct in the right occipital lobe and right temporal lobe. Teleneurology reassessed the patient and recommendation was to increase topiramate to 50 mg p.o. twice daily from 25, initiate DAPT with Plavix 75 mg p.o. daily and aspirin 81 mg p.o. daily. Transfer will be initiated to [facility] so that the patient can be seen by their neurologist Dr. Ndiaye. Patient ready for transfer in stable condition. Hospital Diagnosis: #Possible SMART syndrome exacerbation versus TIA versus stroke recrudescence #CVA workup #History of CVA, 2020 #SMART syndrome #History of seizures #Hypotonic hyponatremia #Leukocytosis, downtrending #Heart failure with reduced ejection fraction, EF 35 to 40% #Global hypokinesis #Dilated cardiomyopathy #Moderate to severe LV dysfunction #Benign prostate hypertrophy #Hypertension #Lung cancer with brain metastasis in remission, by history Discharge instructions: Per [facility] Frandy Singh, PGY-1 Status at Discharge Cognitive/behavioral status at discharge: Stable and returning to baseline Overall status at discharge: patient is progressing back to baseline Time Spent with Patient Time attestation: Total time spent providing and/or coordinating discharge services: 45 minutes Time spent: Greater than 30 minutes Exam Vital Signs Temp Pulse Resp BP Pulse Ox O2 Del Method 97.9 F 73 14 121/69 96 Room Air 02/12/25 12:00 02/12/25 12:00 02/12/25 12:00 02/12/25 12:00 02/12/25 12:02/12/25 12:00 Narrative Exam Physical Exam: GENERAL: Awake, answering questions appropriately, appears stated age HEENT: NC/AT. Moist mucosa. PERRLA/EOMI. Poor dentition CARDIO: Heart RRR, no obvious murmurs, no JVD. PULM: No coughing or visible SOB. Lungs CTA B/L. GI: Abdomen soft, NT/ND, +BS. SKIN/MSK/EXT: No wounds/discoloration/rashes/edema/amputations. +Pedal pulses present B/L. NEURO: Oriented x3, Moves extremities x4, cranial nerve II (optic) dysfunction, cranial nerves III to XII intact, wound care rn strength 5 out of 5, muscle strength 5 out of 5 on bilateral upper and lower extremities. Sensations grossly intact. Discharge Plan Plan Patient Disposition: er Other Facility Pt Being Transferred to: [facility] Service Needed for Transfer: Opthalmology Patient condition on transfer: Stable Prescriptions/Referrals Prescriptions/Med Rec: No Action tamsulosin 0.4 mg capsule 0.4 mg PO QDAY oxcarbazepine [Trileptal] 300 MG tablet 900 mg PO BID Qty: 0 Rx Instructions: TAKE 3 TABLETS BY MOUTH TWICE DAILY Phenytoin Sodium Extended * (DILANTIN *) 100 MG capsule 300 mg PO HS Qty: 0 Patient Comments: FOR SEIZURE CONTROL topiramate 25 mg Capsule, Sprinkle 25 mg PO BID Rx Instructions: TAKE 1 CAPSULE BY MOUTH TWICE DAILY FOR SEIZURES aspirin [Jerica Low Dose Aspirin] 81 mg Tablet,Delayed Release (Dr/Ec) 81 mg PO DAILY 30 Days Qty: 30 0RF atorvastatin 20 mg tablet 20 mg PO DAILY Patient Comments: TAKE 1 TABLET BY MOUTH ONCE A DAY FOR HIGH CHOLESTEROL FOR 30 DAYS 90 Referrals: Annika Caputo MD [Primary Care Provider] - Patient/Caregiver Discharge Instructions Discharge Activity: other Print Language: Serbian Stand Alone Forms: Jasmina Award Info., Patient Portal Info Letter Discharge Order Discharge Orders: Discharge (Routine); Ordered 02/14/25 Ordered By: Samira Campbell Quality Discharge Quality Measures VTE prophylaxis
[2025-02-12] MEDS: OXCARBazepine 150 MG TABLET (NON-FORMULARY) 450 MG PO (16:51)
--- NOTE | 2025-02-12 16:55 | PD.TNEURO ---
Tele Neuro Consultation Consultation Date 02/12/25 Most Recent Vital Signs Last Vital Signs Temp 97.9 F 02/12/25 12:00 Pulse 73 02/12/25 12:00 Resp 14 02/12/25 12:00 BP 121/69 02/12/25 12:00 Pulse Ox 96 02/12/25 12:00 O2 Del Method Room Air 02/12/25 12:00 Laboratory-Coagulation Panel PT 10.4 Seconds (9.0-12.2) 02/11/25 14:00 INR 0.9 (0.9-1.3) 02/11/25 14:00 APTT 25.9 Seconds (22.0-36.0) 02/11/25 14:00 Consultation Narrative [facility] Tele[facility]urology Consult Services Stat Consult Patient Name:???Wil Garcia Date of :???1960 Identification Number:??? Date of Service:???02/12/2025 13:59:24 Diagnosis:?I63.89 - Cerebrovascular accident (CVA) due to other mechanism ([facility]) Impression 64 y/o man with hx lung cancer/brain mets s/p XRT, GARCIA/SMART syndrome; seizures (typically presents subclinically). HF, CVA . New vision loss (now OU) due to R occipital lobar infarction in the setting of previously infarcted L occipital lobe. The acute ischemia found by MRI/brain 02/11 also includes R temporal lobe. CTA and MRA head/neck are without LVO or but cerebral arterial irregularity (MRA). Missed one Trileptal dose yesterday, still remains behind--just given 900mg pm dose. No apparent seizure, no exam findings to suggest subclinical status epilepticus. Has severe GARCIA now. Recommend: IV Mg++ 2g now, APAP PO prn GARCIA. IV ondansetron prn nausea. Check [PHT] unless transfer to [facility] is imminent. Give additional 450mg Trileptal and continue usual 900/BID would uptitrate TPM to 50/BID (25mg dose was verified). This is used both for GARCIA and seizure. Check HbA1c. Na+ low but would not treat aggressively, as Trileptal can cause. Ophthalmology cs SHAY when possible. Dilated VF eval for residual vision and PT/OT for gait assessment, fall prevention. Given amount and regions of cortex affected by acute and chronic CVA (e.g., temporal lobes) patient may have seizures requiring monitoring--would recommend transfer to facility where he is better known, with cEEG capacity--[facility]. MRI/brain with and without gd may be necessary given cancer hx, but will leave to discretion of Neuro f/u and his stability in the days to come. Recommendations: Our recommendations are outlined below. Laboratory Studies :Hemoglobin A1c Nursing Recommendations :IV Fluids, avoid dextrose containing fluids, Maintain euglycemia Neuro checks q4 hrs x 24 hrs and then per shift Head of bed 30 degrees Continue with Telemetry Consultations :Recommend Speech therapy if failed dysphagia screen Physical therapy/Occupational therapy Advanced Imaging:CTA Head and Neck Completed. LVO:No Patient is not a candidate for JENNY Metrics: Dispatch Time: 02/12/2025 13:56:05 Callback Response Time: 02/12/2025 13:59:55 Primary Provider Notified of Diagnostic Impression and Management Plan on: 02/12/2025 15:45:03 CT HEAD: I personally reviewed all the CT images that were available to me and it showed:?no acute hemorrhage or ischemia. wik ImagingMRI/brain: new foci restricted diffusion medial R occipital lobe, posterior R temporal lobe MRA carotid degraded--motion artifact MRA brain moderate cerebral arterial irregularity Chief Complaint: blindness History of Present Illness:Patient is a 64 year old Male. 64 y/o man with hx lung cancer/brain mets s/p XRT, GARCIA/SMART syndrome; seizures (typically presents subclinically). HF, CVA . Admitted 02/11 for new onset of slurred speech and eyes flinching per his daughter. His c/o vision loss OU started yesterday am. Had been on ASA since last CVA. Currently on: 900/BID Trileptal -- did not receive last pm, now behind x 1 dose. also on PHT 300/HS 25/BID TPM (started 3 y/ago at [facility] s/p cEEG-- but has been stable). He c/o / GARCIA now, no dizziness, nausea. Other hx: GARCIA is usually the warning that seizure or CVA is impending. Dr. Manjit Ndiaye--[facility] ? Past Medical History: ?Stroke ?Seizures Medications: No Anticoagulant use? Antiplatelet use:?Yes?ASA 325 Reviewed EMR for current medications Allergies:? NKDA Social History: Smoking: No Family History: There is no family history of premature cerebrovascular disease pertinent to this consultation ROS : 14 Points Review of Systems was performed and was negative except mentioned in HPI. Past Surgical History: There Is No Surgical History Contributory To Today?s Visit ? Examination: BP(121/69),?Pulse(78), 1A: Level of Consciousness - Alert; keenly responsive?+ 0 1B: Ask Month and Age - Both Questions Right?+ 0 1C: Blink Eyes & Squeeze Hands - Performs Both Tasks?+ 0 2: Test Horizontal Extraocular Movements - Normal?+ 0 3: Test Visual Schwab - Patient is Bilaterally Blind?+ 3 4: Test Facial Palsy (Use Grimace if Obtunded) - Normal symmetry?+ 0 5A: Test Left Arm Motor Drift - No Drift for 10 Seconds?+ 0 5B: Test Right Arm Motor Drift - No Drift for 10 Seconds?+ 0 6A: Test Left Leg Motor Drift - No Drift for 5 Seconds?+ 0 6B: Test Right Leg Motor Drift - No Drift for 5 Seconds?+ 0 7: Test Limb Ataxia (FNF/Heel-De La Cruz) - Ataxia in 1 Limb?+ 1 8: Test Sensation - Mild-Moderate Loss: Less Sharp/More Dull?+ 1 9: Test Language/Aphasia - Normal; No aphasia?+ 0 10: Test Dysarthria - Normal?+ 0 11: Test Extinction/Inattention - No abnormality?+ 0 NIHSS Score:?5 NIHSS Free Text :?R LE diminshed LT but can feel calf pressure Spoke with :?Taz This consult was conducted in real time using interactive audio and video technology. Patient was informed of the technology being used for this visit and agreed to proceed. Patient located in hospital and provider located at home/office setting. Patient is being evaluated for possible acute neurologic impairment and high probability of imminent or life - threatening deterioration.I spent total of 35 minutes providing care to this patient, including time for face to face visit via telemedicine, review of medical records, imaging studies and discussion of findings with providers, the patient and / or family. Dr Heaven Gore [facility] For Inpatient follow-up with [facility] physician please call [facility] at . As we are not an outpatient service for any post hospital discharge needs please contact the hospital for assistance. If you have any questions for the [facility] physicians or need to reconsult for clinical or diagnostic changes please contact us via [facility] at . ?
[2025-02-12 17:27] LABS: Sodium 125 mMol/L (136-145)
[2025-02-12 20:00] VITALS: BP 123/77; PULSE 74; PULSE 79; RESP 15; TEMP 36.4; O2SAT 99
[2025-02-12] MEDS: PHENYTOIN 100 MG CAPSR 300 MG PO (20:47)
[2025-02-12] MEDS: TOPIRAMATE 25 MG TABLET 50 MG PO (20:47)
[2025-02-12] MEDS: ATORVASTATIN CALCIUM 20 MG TABLET 40 MG PO (20:47)
[2025-02-12 23:34] LABS: Sodium 126 mMol/L (136-145)
[2025-02-13] VITALS: BP 111/77; PULSE 57; PULSE 71; RESP 18; TEMP 36.7; O2SAT 99
[2025-02-13 04:00] VITALS: BP 138/78; PULSE 73; PULSE 79; RESP 13; TEMP 36.9; O2SAT 100
[2025-02-13 05:57] VITALS: BMI 23.0
[2025-02-13 06:09] LABS: Basophils # (Auto) 0.1 Thou/mm3 (0.0-0.2); Basophils % (Auto) 0 % (0-2.5); Eosinophils # (Auto) 0.1 Thou/mm3 (0.0-0.5); Eosinophils % (Auto) 1 % (0-10); Hematocrit 34.8 % (41.0-53.0); Hemoglobin 12.8 g/dL (13.5-16.0); Immature Granulocytes % (Auto) 0 % (0-0); Immature Granulocytes Auto 0.04 Thou/mm3 (0.00-0.00); Lymphocytes # (Auto) 2.1 Thou/mm3 (1.0-4.8); Lymphocytes % (Auto) 19 % (10-50); Mean Corpuscular HGB Conc 36.8 g/dl (31.0-37.0); Mean Corpuscular Hemoglobin 29.6 pg (25.0-35.0); Mean Corpuscular Volume 80 fL (80-100); Monocytes # (Auto) 1.6 Thou/mm3 (0.0-0.8); Monocytes % (Auto) 14 % (0-12); Neutrophils # (Auto) 7.5 Thou/mm3 (1.8-7.7); Neutrophils % (Auto) 66 % (37-80); Nucleated Red Blood Cell % 0 /100 WBC (0); Platelet Count 196 Thou/mm3 (140-440); RDW Standard Deviation 39.8 fL (35.1-43.9); Red Blood Count 4.33 Miln/mm3 (4.50-5.90); White Blood Count 11.3 Thou/mm3 (3.8-10.6)
[2025-02-13 06:19] LABS: Glucose Estimated Average 105 mg/dL (80-131); Hemoglobin A1C 5.3 % Hgb (4.8-6.0)
[2025-02-13 06:58] LABS: Anion Gap 10 (7-16); BUN/Creatinine Ratio 17 Ratio (12-20); Blood Urea Nitrogen 10 mg/dL (9-23); Calcium 8.2 mg/dL (8.3-10.6); Carbon Dioxide 21.8 mMol/L (20.0-31.0); Chloride 94 mMol/L (98-107); Creatinine (Component) 0.6 mg/dL (0.6-1.3); Estimated Creatinine Clearance 135.7 mL/min (>60); Glucose 112 mg/dL (74-106); HDL Cholesterol 66 mg/dL (40-60); Osmolality,Calculated 253 (275-295); Phenytoin (Dilantin) 7.9 mcg/mL; Potassium 4.1 mMol/L (3.4-5.1); Sodium 126 mMol/L (136-145); Triglycerides 54 mg/dL (30-150); eGFR > 60 See Note
[2025-02-13 08:00] VITALS: BP 123/76; PULSE 81; PULSE 85; RESP 18; TEMP 36.4; O2SAT 97
--- NOTE | 2025-02-13 09:14 | PC.CM ---
Addendum entered by Maile Johnston RN 02/13/25 17:42: Patient has been medically accepted to [facility]. We are pending an open bed. Patient was accepted by medicine hospitalist. Addendum entered by Maile Johnston RN 02/13/25 10:01: [address] [facility] and I spoke to transfer nurse Prashanth. I initiated a transfer for ophthalmology services. I faxed over latest progress notes and discharge summary. Original Note: I called and spoke to Prashanth with [facility] transfer center. He states patient has been declined for transfer. He states his notes state their doctor did speak to Dr. Flanagan and relayed the information. I called and spoke to Dr. Flanagan and she verified she did speak to a doctor from [facility] last night at 8pm. She states they recommended trying to transfer for ophthalmology services. I will reach out again to [facility] and attempt transfer for ophthalmology services.
[2025-02-13] MEDS: OXCARBazepine 150 MG TABLET (NON-FORMULARY) 900 MG PO ×2 (09:44→20:30)
[2025-02-13] MEDS: CLOPIDOGREL BISULFATE 75 MG TABLET PO (09:44)
[2025-02-13] MEDS: TOPIRAMATE 25 MG TABLET 50 MG PO ×2 (09:44→20:31)
[2025-02-13] MEDS: ASPIRIN EC 81 MG TABEC PO (09:44)
[2025-02-13] MEDS: TAMSULOSIN HCL 0.4 MG CAPSULE PO (09:44)
[2025-02-13] MEDS: SODIUM CHLORIDE 1 GM TABLET PO ×2 (09:46→20:31)
[2025-02-13 10:27] LABS: Cardiac Risk Estimate 2.2 RATIO (4.0-6.7); Cholesterol 144 mg/dL (132-200); LDL Cholesterol,Calculated 67 mg/dL (0-130)
[2025-02-13 12:00] VITALS: BP 133/78; PULSE 75; PULSE 85; RESP 20; TEMP 36.5; O2SAT 98
--- NOTE | 2025-02-13 13:33 | PD.NEPHCONS ---
History of Present Illness Data of Consult Consult date: 02/13/25 Requesting Physician: Jennifer Flanagan DO Primary Care Provider: Annika Caputo MD Consult Narrative Reason for consult: Hyponatremia History of present illness: Chart review done as patient is not a good historian. Mr. 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 Of note, patient was recently discharged from [facility] Secondary to new neurologic deficits on the right side with slurred speech. Diagnosis at the time was hypertensive emergency as MRI of the brain at that time was negative for any acute CVA. Patient was also diagnosed with new onset heart failure with reduced ejection fraction at that time. Patient was discharged to a SNF and has been there ever since. 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 He states that he is able to see some light but cannot distinguish objects. Patient also follows a neurologist at [facility] who manages his smart syndrome . Reviewed entire chart. Medications: patient apparently takes phenytoin 300 mg nightly, Trileptal 900 mg p.o. twice daily, topiramate 25 mg p.o. twice daily and was recently started on GDMT In the ED, patient presented hypertensive 152/81, heart rate 83, respiratory rate 19, afebrile satting 97 on room air. Pertinent lab findings include WBC of 14.9, hemoglobin 13.9, sodium 128, creatinine 0.7, magnesium 1.7, alk phosphatase 124, troponin less than 0.020, urinalysis negative for any signs of infection. U tox positive for marijuana. Head CT showed no interval acute hemorrhage or mass effect, head neck CTA showed no significant neck arterial stenosis or LVO and EKG showed sinus rhythm with occasional PVCs and no concerning ST changes. Patient was admitted for new bilateral blindness. Patient has persistent hyponatremia and nephrology consultation was requested. 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 Labs reviewed. Uric acid 2.0. Pending transfer to [facility] ophthalmology. cc:: cc: Jennifer Flanagan DO Review of Systems Review of Systems Narrative Review of Systems: Limited-patient blind currently. Past Medical History Past Medical History NEUROLOGIC: Positive Cerebrovascular Accident and Seizures CARDIAC: Positive Cardiac Disorders, Hypercholesterolemia and Hypertension; Negative Congestive Heart Failure RESPIRATORY: Positive Cough and Smoking; Negative Respiratory Disorders, Chronic Obstructive Pulmonary Disease (COPD) or Asthma GASTROINTESTINAL: Positive Gastrointestinal Disorders GENITOURINARY: Positive Genitourinary Disorders and Benign Prostatic Hyperplasia; Negative Renal Disease MUSCULOSKELETAL: Positive Musculoskeletal Disorders and Fractures ENDOCRINE: Negative Endocrine Disorders, Diabetes Mellitus Type 1 or Diabetes Mellitus Type 2 HEMATOLOGIC: Negative Blood Disorders or Sickle Cell Disease OTHER HISTORY: Positive Chemotherapy, Radiation Therapy, Cancer and Lung Cancer; Negative Autoimmune Disease, Falls (USES WALK[employer]), Blood Transfusions, Blood Transfusion Reaction or Anesthesia Reactions Family History FAMILY HISTORY: Positive Family Cancer Surgical History SURGICAL: Positive Joint Replacement and Neurologic Surgery; Negative Cardiac Surgery Social History SMOKING STATUS: Former smoker Meds Home Medications and Allergies Home Medications ?Medication ?Instructions ?Recorded ?Confirmed ?Type Phenytoin Sodium Extended * 300 mg PO HS #0 caps 04/14/17 02/12/25 History (DILANTIN *) oxcarbazepine 300 mg tablet 900 mg PO BID #0 tabs 04/14/17 02/12/25 History (Trileptal) tamsulosin 0.4 mg capsule 0.4 mg PO QDAY 05/05/20 02/12/25 History topiramate 25 mg sprinkle capsule 25 mg PO BID Seizures 11/28/22 02/12/25 History atorvastatin 20 mg tablet 20 mg PO DAILY 02/12/25 02/12/25 History Allergies Allergy/AdvReac Type Severity Reaction Status Date / Time No Known Allergies Allergy Verified 11/16/24 10:57 Exam Vital Signs Temp Pulse Resp BP Pulse Ox O2 Del Method 36.5 C 75 20 133/78 H 98 Room Air 02/13/25 12:00 02/13/25 12:00 02/13/25 12:00 02/13/25 12:00 02/13/25 12:00 02/13/25 12:00 Narrative Exam GENERAL APPEARANCE: Patient seems to be comfortable, adequately hydrated and nourished. HEENT: Vision loss in both eyes NECK: Neck supple, no JVD or bruit CARDIOVASCULAR: Heart regular, no murmurs LUNGS/CHEST: Chest clear to auscultation. No rales, rhonchi, wheezing ABDOMEN: Soft, nontender, nondistended. No masses. Normal bowel sounds. EXTREMITIES: No edema, clubbing or cyanosis. SKIN: Skin exam normal without any rashes MUSCULOSKELETAL: in bed NEUROLOGICAL : Under seizure precautions. 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 Unfortunately cannot stop any of them. Decided to proceed with the salt tablets 3 times daily. (2) Seizure disorder: Status: Acute Assessment and plan: Currently on Trileptal, Dilantin, topiramate. (3) Metastasis to brain: Status: Acute Assessment and plan: Metastatic disease to the brain. (4) Acute visual loss: Status: Acute Assessment and plan: Noted patient has acute vision loss-will be transferred to [facility] ophthalmology. (5) Right sided weakness: Status: Acute Assessment and plan: Right-sided weakness from the medics (6) Slurred speech: Status: Acute Assessment and plan: Patient had slurred speech 4 nights Additional Assessment & Plan Additional Plan: Plan of care discussed with primary team. Thank you Dr. Flanagan for allowing me to participate in the care of Mr. Garcia
--- NOTE | 2025-02-13 14:48 | ESDS_ITS ---
<Statement entered by Jennifer Flanagan DO - 02/13/25 15:54> I, Jennifer Flanagan DO, attest that I was physically present for the hayward portions of the service and evaluated the patient with the resident and I reviewed and discussed the case with the resident and agree with the resident's findings and plans of care as documented above Planned Discharge Date 02/13/25 DS: Providers Provider Date of admission: 02/11/25 15:40 Primary care physician: Annika Caputo MD Admitting Provider: Dorian Cabral MD Attending Provider on Admission: Jennifer Flanagan DO Consults: 02/11/25 13:48 Consult to Neurology / Tele-Neurology Routine Comment: Consulting Provider: [facility] 02/12/25 14:09 Referral Physical Therapy Routine Comment: Physician Instructions: Referral Speech Therapy Routine Comment: 02/13/25 09:52 Consult to Nephrology Routine Comment: Consulting Provider: Aashish Albrecht Attending Provider on DC: Jennifer Flanagan DO Discharging Provider: Cooper Colon MD DS: Diagnosis Problem List Completed Was Problem List Reviewed/Reconciled?: Yes Hospital Course Hospital Course Hospital course: Mr Garcia is a 64-year-old male with past medical history of lung cancer with metastasis to brain in remission status postradiation surgical therapy, 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 In the ED, patient was hypertensive 152/81, heart rate of 83, respiratory rate of 19 but saturating 97 on room air. U-Tox was positive for marijuana. Head CT showed no interval acute hemorrhage or mass effect, head and neck CTA showed no significant neck arterial stenosis or LVO and EKG showed sinus rhythm with occasional PVCs and no concerning ST changes. Patient was admitted for new bilateral blindness with teleneurology consultation, brain MRI and EEG ordered. Teleneurology recommended frequent neurochecks, speech and physical therapy, antihypertensives if blood pressure was greater than 220/120, aspirin 325, continue the patient's seizure medications and seizure precautions. Patient did not experience any seizure during hospitalization. Brain MRI was positive for old left parieto-occiptal infarcts, new acute infarct in the right occipital lobe and right temporal lobe. Tele-neurology reassessed the patient and recommendation was to increase topiramate to 50 mg p.o. twice daily from 25, initiate DAPT with Plavix 75 mg p.o. daily and aspirin 81 mg p.o. daily. Patient is stable for transfer for further evaluation by ophthalmology. Daughter at bedside and updated regarding plan of care. 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 Sodium improved to 126 with salt tabs 1 g PO BID. Hospital Diagnosis: - Acute right occipital and right temporal lobe CVA - History of left parieto-occiptal CVA, 2020 - SMART syndrome - History of seizures - Hypotonic hyponatremia, likely SIADH - Leukocytosis, downtrending - Dilated cardiomyopathy ( EF 35 to 40%) - Moderate to severe LV dysfunction - Benign prostate hypertrophy - Hypertension - Hx of Lung cancer with brain metastasis s/p Radiation in remission Discharge plan: Transfer to [facility] Opthalmology. Patient ready for transfer in stable condition. We are grateful to be able to participate in Mr Garcia's care. We wish him the best. Plan of care discussed with attending Dr Flanagan, - Cooper Colon M.D. PGY2 Disclaimer: Minor errors in bank guard may be present as this note was dictated using voice recognition software. Status at Discharge Cognitive/behavioral status at discharge: Stable and returned to baseline. Time Spent with Patient Time attestation: Total time spent providing and/or coordinating discharge services: more than 50% Time spent: Greater than 30 minutes Exam Vital Signs Temp Pulse Resp BP Pulse Ox O2 Del Method 97.7 F 75 20 133/78 H 98 Room Air 02/13/25 12:00 02/13/25 12:00 02/13/25 12:00 02/13/25 12:02/13/25 12:02/13/25 12:00 Narrative Exam Constitutional Alert, oriented x3 and comfortable. Elderly, frail HEENT B/L complete vision loss, RT sided floaters. Patent nares. Trachea midline. Respiratory Chest normal on inspection and clear to auscultation bilaterally. Cardiovascular S1 and S2 audible, RRR. No murmurs or carotid bruit. No gross JVD. Abdominal Soft and BS + ; non tender to palpation in all quadrants. Genitourinary No bladder tenderness, no flank pain. Normal to palpation. Musculoskeletal Extremities tone within normal limits. No LE edema. Neurological CN II - XII grossly intact. mild right upper extremity weakness with MS 4-/5 and MS 5/5 in rest of extremities. gross sensation intact. Skin Warm, dry and intact. Senile purpurae Psychiatric Patient has a good affect, is cooperative. Discharge Plan Plan Patient Disposition: Xfer Other Facility Pt Being Transferred to: [facility] Service Needed for Transfer: Opthalmology Patient condition on transfer: Stable Prescriptions/Referrals Prescriptions/Med Rec: No Action tamsulosin 0.4 mg capsule 0.4 mg PO QDAY oxcarbazepine [Trileptal] 300 MG tablet 900 mg PO BID Qty: 0 Rx Instructions: TAKE 3 TABLETS BY MOUTH TWICE DAILY Phenytoin Sodium Extended * (DILANTIN *) 100 MG capsule 300 mg PO HS Qty: 0 Patient Comments: FOR SEIZURE CONTROL topiramate 25 mg Capsule, Sprinkle 25 mg PO BID Rx Instructions: TAKE 1 CAPSULE BY MOUTH TWICE DAILY FOR SEIZURES aspirin [Jerica Low Dose Aspirin] 81 mg Tablet,Delayed Release (Dr/Ec) 81 mg PO DAILY 30 Days Qty: 30 0RF atorvastatin 20 mg tablet 20 mg PO DAILY Patient Comments: TAKE 1 TABLET BY MOUTH ONCE A DAY FOR HIGH CHOLESTEROL FOR 30 DAYS 90 Referrals: Annika Caputo MD [Primary Care Provider] - Patient/Caregiver Discharge Instructions Discharge Activity: other Print Language: Niuean Stand Alone Forms: Jasmina Award Info., Patient Portal Info Letter Quality Discharge Quality Measures VTE prophylaxis
[2025-02-13 16:00] VITALS: BP 131/69; PULSE 68; PULSE 76; RESP 20; TEMP 36.4; O2SAT 98
[2025-02-13 20:00] VITALS: BP 111/55; PULSE 81; PULSE 92; RESP 20; TEMP 36.5; O2SAT 98
[2025-02-13] MEDS: PHENYTOIN 100 MG CAPSR 300 MG PO (20:30)
[2025-02-13] MEDS: ATORVASTATIN CALCIUM 20 MG TABLET 40 MG PO (20:31)
--- NOTE | 2025-02-13 21:00 | PC.NURSE ---
Sabiha from [facility] transport center called and said pt has open bed and can be transferred tonight, will arrange transportation for the pt.
--- NOTE | 2025-02-13 21:30 | PC.NURSE ---
Called pts daughter Valeri to let her know that pt will be transferred for tonight and get consent for transfer, Daughter Valeri is aware and consented through phone.
[2025-02-14] VITALS: BP 129/69; PULSE 68; PULSE 71; RESP 18; TEMP 36.8; O2SAT 98
--- NOTE | 2025-02-14 00:35 | PC.NURSE ---
Give report to Josué Erwin at [facility].
--- NOTE | 2025-02-14 00:46 | PC.NURSE ---
Ambulance personnel here to transport pt to [facility], disscharge packet given to ambulance personnel. Trileptal meds handed to ambulance personnel.
== END 2025-02-14 00:46 | disposition other institution (70) | DRG 65 ==
LOC: SERX 14:51 → SERHOLD 15:55 → S2NX 21:53
PROVIDERS: Admitting Provider Internal Medicine; Emergency Provider Family Medicine; PCP Family Medicine; Visit Provider Internal Medicine
DX: I63.89 Other cerebral infarction (principal); E22.2 Syndrome of inappropriate secretion of antidiuretic hormone; I16.1 Hypertensive emergency; I42.0 Dilated cardiomyopathy; I50.22 Chronic systolic (congestive) heart failure; I42.4 Endocardial fibroelastosis; I11.0 Hypertensive heart disease with heart failure; G40.909 Epilepsy, unspecified, not intractable, without status epilepticus; N40.0 Benign prostatic hyperplasia without lower urinary tract symptoms; D72.829 Elevated white blood cell count, unspecified; R47.81 Slurred speech; G93.89 Other specified disorders of brain; H54.3 Unqualified visual loss, both eyes; I35.8 Other nonrheumatic aortic valve disorders; R29.705 NIHSS score 5; Z85.118 Personal history of other malignant neoplasm of bronchus and lung; E78.5 Hyperlipidemia, unspecified; Z85.841 Personal history of malignant neoplasm of brain; Z87.891 Personal history of nicotine dependence; Z66 Do not resuscitate; T42.1X5A Adverse effect of iminostilbenes, initial encounter; Z79.02 Long term (current) use of antithrombotics/antiplatelets; Z79.82 Long term (current) use of aspirin; Z92.3 Personal history of irradiation; Z96.642 Presence of left artificial hip joint; Z92.21 Personal history of antineoplastic chemotherapy; Z86.73 Personal history of transient ischemic attack (TIA), and cerebral infarction without residual deficits
CPT/HCPCS: 36415; 70450; 70496; 70498; 70544; 80048; 80053; 80061; 80069; 80185; 80307; 80320; 81001; 83036; 83735; 84100; 84133; 84295; 84300; 84484; 84550; 85025; 85610; 85730; 87040; 87081; 92610; 93005; 95816; 96365; 96366; 97162; 99291; A4649; J3475; J7030; Q9967; A9270; G0480

== ENCOUNTER 2025-03-22 18:58 | Inpatient (IN) | payer MEDICARE, MEDICAID, SELFPAY ==
[2025-03-22] VITALS (29 sets, daily range): BP systolic 103–155; BP diastolic 58–109; PULSE 65–107; RESP 15–91; TEMP 37.9–39.7; O2SAT 89–98; BMI 20.9
--- NOTE | 2025-03-22 19:17 | PD.EDADULT ---
ED General RME/HPI General Chief complaint: General Adult/Misc Complain Stated complaint: POSSIBLE STROKE Time Seen by Provider: 03/22/25 19:18 Arrival date/time: 03/22/25 18:58 RME / HPI RME / HPI narrative: Dr. Mason?s Main ED Evaluation: 64yo male with a history of lung CA with mets to brain in remission s/p radiation surgical therapy, smart syndrome on seizure medication, CHF, BPH, CVA (2019), HTN BIBA from [facility] presents to the ED after going unresponsive . Per EMS, patient was being fed at 1800 by SNF staff when he suddenly went unresponsive . Patient was saturating at 92% via simple mask and went up to 95% on 6L/NC. Blood sugar en route was 116. Full ROS is unobtainable due to the patient's AMS. Related Data Home Medications ?Medication ?Instructions ?Recorded ?Confirmed Phenytoin Sodium Extended * 300 mg PO HS #0 caps 04/14/17 02/12/25 (DILANTIN *) oxcarbazepine 300 mg tablet 900 mg PO BID #0 tabs 04/14/17 02/12/25 (Trileptal) tamsulosin 0.4 mg capsule 0.4 mg PO QDAY 05/05/20 02/12/25 topiramate 25 mg sprinkle capsule 25 mg PO BID Seizures 11/28/22 02/12/25 atorvastatin 20 mg tablet 20 mg PO DAILY 02/12/25 02/12/25 Previous Rx's ?Medication ?Instructions ?Recorded aspirin 81 mg tablet,delayed 81 mg PO DAILY 30 days #30 tabs 12/08/22 release (Jerica Low Dose Aspirin) Allergies Allergy/AdvReac Type Severity Reaction Status Date / Time No Known Allergies Allergy Verified 03/22/25 19:14 Review of Systems Review of Systems ROS Unobtainable: unobtainable due to mental status ED Exam Narrative Physical exam: GEN. APPEARANCE: The patient is awake, is drooling, appears chronically ill, responds to pain at the LUE, LLE, and RLE. He does make incomprehensible sounds. VITALS: All vitals were reviewed and the pulse ox is 96% on 6L/NC which is hypoxic according to my interpretation. HEENT: Normocephalic, atraumatic. Pupils are equal and reactive. Has nystagmus. Oral mucosa is moist. Patent Nares NECK: Supple, nontender, no thyromegaly, no meningismus, no JVD CHEST: Symmetrical, atraumatic, and with equal expansion , Nontender on palpation no deformity and no crepitus. CARDIOVASCULAR: Tachycardic, no murmur or gallop rub or extra beats. LUNGS: Coarse breath sounds bilaterally. Diffuse rhonchi. No laboring tachypnea or wheezing. No intercostal subcostal retraction. ABDOMEN: Soft, flat, nontender to palpation, no guarding or rebound tenderness. There are no abnormal masses palpated. Active and normal bowel sounds. EXTREMITIES: Nontender. No edema. No cyanosis. Patient has contractures to the BUE. SKIN: Warm and dry, no jaundice or rashes noted. NEURO: Patient is awake, Cranial nerves II through XII grossly intact. PSYCHIATRIC: Patient is in normal mood and affect. Course Course Course Narrative: 1918: Sepsis alert initiated. Orders made at this time are congruent with ED Adult Sepsis Order List. Re-evaluation is to be completed. CXR is ordered for determining the etiology of fever. Stroke alert initiated at 1926. 2008: LR IVF started. 2141: Sepsis reassessment performed consisting of lab review, vitals, physical exam including auscultation of heart, lungs, and visual evaluation of capillary refills, mucosal membranes and extremities. Quality Measures Possible source: pulmonary Blood cultures ordered: yes Antibiotic ordered: Yes Pertinent labs: 03/22/25 19:53 Lactic Acid 1.5 mMol/L (0.4-2.0) Procalcitonin 0.08 ng/ml (0.0-0.49) sepsis and none Orders Category Date Time Status Bedside Blood Glucose NOW Care 03/22/25 19:27 Active Bedside Influenza A&B Antigen Test NOW Care 03/22/25 19:19 Completed Waiter/Waitress NOW Care 03/22/25 19:27 Active Continuous Pulse Oximetry NOW Care 03/22/25 19:27 Completed EKG (ED ONLY) *Do not use* NOW Care 03/22/25 19:27 Completed In and Out Catheter NEEDED Care 03/22/25 19:27 Active Insert IV NOW Care 03/22/25 19:27 Active NIH Stroke Scale now Care 03/22/25 19:27 Active NPO NOW Care 03/22/25 19:27 Active Nurse Swallow Screen x1 Care 03/22/25 19:27 Active Consult to Neurology / Tele-Neurology Routine Cons 03/22/25 19:[address] angio stroke protocol Stat Exams 03/22/25 19:[address] stroke protocol Stat Exams 03/22/25 19:27 Completed CXR [XR chest 1V] Stat Exams 03/22/25 19:19 Completed EKG (ED Only) Stat Exams 03/22/25 19:27 Draft Acetaminophen Stat Lab 03/22/25 19:53 Completed Alcohol, Blood Medical Stat Lab 03/22/25 19:53 Completed Ammonia Stat Lab 03/22/25 19:53 Completed Blood Culture (Lab) Stat Lab 03/22/25 19:50 Received CBC Stat Lab 03/22/25 19:53 Completed CMP [Comprehensive Metabolic Panel] Stat Lab 03/22/25 19:53 Completed COVID-19 Antigen (In-House) Stat Lab 03/22/25 21:14 Completed Drug Screen,Urine Stat Lab 03/22/25 20:20 Completed INR [Prothrombin Time with INR] Stat Lab 03/22/25 19:53 Completed Lactate (Lactic Acid) Stat Lab 03/22/25 19:53 Completed Magnesium Stat Lab 03/22/25 19:53 Completed Partial Thromboplastin Time Stat Lab 03/22/25 19:53 Completed Phenytoin (Dilantin) Stat Lab 03/22/25 19:53 Completed Procalcitonin Stat Lab 03/22/25 19:53 Completed Salicylate Stat Lab 03/22/25 19:53 Completed T4 (Thyroxine) Stat Lab 03/22/25 19:53 Completed Thyroid Stimulating Hormone Stat Lab 03/22/25 19:53 Completed Topiramate* Stat Lab 03/22/25 19:53 Received Troponin I Stat Lab 03/22/25 19:53 Completed UA, C/S IF [Urinalysis, C/S if Indicated] Stat Lab 03/22/25 20:20 Completed Urine Culture Stat Lab 03/22/25 20:20 Received VBG [Venous Blood Gas] Stat Lab 03/22/25 19:53 Completed ACETAMINOPHEN 325 mg SUPP [Tylenol Supp] Med 03/22/25 19:29 Discontinued 650 mg SD X1 ONE Lacosamide Ivp [Vimpat IVP] Med 03/22/25 20:06 Discontinued 50 mg IVP X1 ONE Phenytoin Inj [Dilantin Inj] Med 03/22/25 20:02 Discontinued 1,397 mg IV X1 ONE Phenytoin Inj [Dilantin Inj] 1,400 mg Med 03/22/25 20:15 Discontinued Sodium Chloride 0.9% [Ns] 100 ml IV X1 Ringers Lactated 1000 ml [Lactated Ringers] 1,000 ml Med 03/22/25 19:29 Discontinued IV 999 mls/hr cefTRIAXone/D5w 1gm IV premix [Rocephin/D5w 1gm IV Med 03/22/25 19:30 Discontinued premix] 1 gm in 50 ml IV X1 Oxygen Delivery NOW RT 03/22/25 19:27 Active Vital Signs Vital signs: Vital Signs Temperature 102.0 F H 03/22/25 19:05 Pulse Rate 102 H 03/22/25 19:05 Respiratory Rate 24 H 03/22/25 19:05 Blood Pressure 136/84 H 03/22/25 19:05 Pulse Oximetry (%) 96 03/22/25 19:05 Oxygen Delivery Method Nasal Cannula 03/22/25 19:05 Oxygen Flow Rate 6 03/22/25 19:05 Discharge Plan Plan Patient Disposition: Admit Acute Care w/in Hospital Prescriptions/Referrals Prescriptions/Med Rec: No Action tamsulosin 0.4 mg capsule 0.4 mg PO QDAY oxcarbazepine [Trileptal] 300 MG tablet 900 mg PO BID Qty: 0 Rx Instructions: TAKE 3 TABLETS BY MOUTH TWICE DAILY Phenytoin Sodium Extended * (DILANTIN *) 100 MG capsule 300 mg PO HS Qty: 0 Patient Comments: FOR SEIZURE CONTROL topiramate 25 mg Capsule, Sprinkle 25 mg PO BID Rx Instructions: TAKE 1 CAPSULE BY MOUTH TWICE DAILY FOR SEIZURES aspirin [Jerica Low Dose Aspirin] 81 mg Tablet,Delayed Release (Dr/Ec) 81 mg PO DAILY 30 Days Qty: 30 0RF atorvastatin 20 mg tablet 20 mg PO DAILY Patient Comments: TAKE 1 TABLET BY MOUTH ONCE A DAY FOR HIGH CHOLESTEROL FOR 30 DAYS 90 Referrals: Nadeem Caputo MD [Primary Care Provider] - In 1 week Problem List Clinical Impression: AMS (altered mental status), Seizure, Leukocytosis Patient/Caregiver Discharge Instructions Print Language: Lebanese Stand Alone Forms: Jasmina Award Info., Patient Portal Info Letter MDM Narrative [facility] hospital course: Scribe Attestation: 03/22/25 - I, Vanessa Rogers, am scribing for and in the presence of Dr. Mason. 1956: Discussed case with Dr. Trejo from teleneurology regarding consultation. Discussed patients ED course, exam findings, labs, and radiology results. States thatsince the patient has a history of brain tumor, he cannot receive tPA. Recommends giving Dilantin 20mg/kg, along with the patient's other seizure medications. 2203: Discussed case with [facility]'s transfer center. Discussed patients ED course, exam findings, labs, and radiology results. Awaiting callback. 518: Discussed case with Dr. Solis from neurologist from [facility] regarding consultation. Discussed patients ED course, exam findings, labs, and radiology results. Recommends keeping the patient at our facility. 524: Discussed case with the resident physician, attending Dr. Jalloh from Hospitalist service regarding admission. Discussed patients ED course, exam findings, labs, and radiology results. The Hospitalist agrees to accept the patient for admission. Clinical Information Provided by EMS Medical Records Reviewed [facility] (Per chart review, patient was seen here on 02/11/25 for acute visual loss.) and EMS Meds/Rx Considered, not Ordered None Labs/Rad/Tests considered, not Ordered None Chronic Illness/Social Conditions which may negatively complicate care or outcome(s)-explain: skilled nursing/debilitated Add or document further as needed: lung CA with mets to brain in remission s/p radiation surgical therapy, smart syndrome on seizure medication, CHF, BPH, CVA (2019), HTN EKG EKG Interpretation narrative: EKG done at 2028, NSR, rate of 99, normal intervals, frequent PVCs, no STEMI, according to my interpretation. Lab Interpretation Labs: interpreted by ar Lab(s) interpretation(s): WBC 22.5, PT/INR/PTT normal, Lactic Acid normal, Magnesium normal, Procalcitonin normal, Phenytoin 31.8, Blood Alcohol negative, COVID/Influenza negative. Imaging Imaging interpretation: interpreted by me Radiology reports / interpretation(s): [facility] Signed Patient: ANTON HATCH. Record#: [id number] Birthdate: 1960 Age/Sex: 64 / M Location: [facility] Attending Dr: Ordering Physician: Sheeba Mason MD Date of Service: 03/22/25 Procedure(s): XR chest 1V Accession Number(s): [id number] cc: Champ Wu MD; Sheeba Mason MD~ Examination: AP chest single view TECHNIQUE: AP portable upright chest single view Date and time: March 22, 2025 1922 hours INDICATIONS: Acute infarcts right occipital right temporal lobe on brain MRI February 11, 2025 FINDINGS: Normal heart size No aspiration pneumonia. Right internal jugular Port-A-Cath tip satisfactory position No pneumonia or pulmonary edema IMPRESSION: No pneumonia or pulmonary edema Dictated By: Champ Wu MD Signed By: <Electronically signed by Champ Wu MD in OV> 03/22/251950 [facility] Signed Patient: ANTON HATCH. Record#: [id number] Birthdate: 1960 Age/Sex: 64 / M Location: [facility] Attending Dr: Ordering Physician: Sheeba Mason MD Date of Service: 03/22/25 Procedure(s): CT stroke protocol Accession Number(s): [id number] cc: Champ Wu MD; Sheeba Mason MD~ Examination: CT brain head without contrast. 2-D sagittal coronal reconstructions Date and time of exam:March 22, 2025 1935 hours INDICATIONS: Stroke alert, onset altered mental status today CTDI: vol (mGy):51.7 DLP: (mGycm):1164 Technique: Multiple CT axial sections of the brain have been obtained, 5 mm slice thickness. Contrast has not been administered. 2-D sagittal, coronal reconstructions have been obtained Low dose protocols were performed. One or more of the following dose reduction techniques were used; automated exposure control, adjustment of the mA and/or KV according to patient size, use of iterative reconstruction technique. Findings: Again noted left posterior parietal craniotomy defect with encephalomalacia in the left occipital lobe Again noted old infarct in the left caudate nucleus as well as old infarct left brain stem Mild ventricular enlargement No interval acute hemorrhage or mass effect IMPRESSION: No interval acute hemorrhage mass effect or midline shift Dictated By: Champ Wu MD Signed By: <Electronically signed by Champ Wu MD in OV> 03/22/251944 [facility] Signed Patient: ANTON HATCH. Record#: [id number] Birthdate: 1960 Age/Sex: 64 / M Location: [facility] Attending Dr: Ordering Physician: Sheeba Mason MD Date of Service: 03/22/25 Procedure(s): CT angio stroke protocol Accession Number(s): [id number] cc: Champ Wu MD; Nadeem Caputo MD; Sheeba Mason MD~ Examination: CTA carotids with intravenous contrast CTA brain, head with intravenous contrast. 2-D sagittal, coronal reconstructions. 3-D reconstructions. Exam date and time: March 22, 2025, 1944 hours Comparison February 11, 2025 INDICATIONS: Stroke alert today, onset focal neurologic deficit CTDI: vol (mGy) 17.7 DLP: (mGycm) 457 Technique: Multiple CTA axial brain, head carotid images post intravenous contrast injection 75 cc, [id number]. 2-D sagittal, coronal reconstructions. 3-D reconstructions, 3-D post processing including vascular maximum intensity projection images. Low dose protocols were performed. One or more of the following dose reduction techniques were used; automated exposure control, adjustment of the mA and/or KV according to patient size, use of iterative reconstruction technique. 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 No significant common carotid carotid bifurcation or internal carotid artery stenoses Minimally dominant left vertebral artery with no critical stenoses Intracranial vertebral arteries basilar artery and posterior cerebral branches do fill Moderate calcifications axis are portions internal carotid arteries but no occlusions involving middle cerebral or anterior cerebral vessels IMPRESSION: No significant neck arterial stenoses No cerebral arterial vessel occlusions Dictated By: Champ Wu MD Signed By: <Electronically signed by Champ Wu MD in OV> 03/22/25 2100 Medication Administration(s) Medication Administration History Discontinued Medications Acetaminophen (Acetaminophen Supp 325 Mg Supp) 650 mg SD X1 ONE Stop: 03/22/25 19:30 Last Admin: 03/22/25 20:13 Dose: 650 mg Documented By: CG Lactated Ringer's (Lactated Ringers) 1,000 mls @ 999 mls/hr IV .Q1H1M ONE Stop: 03/22/25 20:29 Last Infusion: 03/22/25 21:12 Dose: Infused Documented By: Admin: 03/22/25 20:09 Dose: 999 mls/hr Documented By: CG Ceftriaxone Sodium/Dextrose (Rocephin/D5w 1gm Iv Premix) 1 gm in 50 mls @ 100 mls/hr IV X1 ONE Stop: 03/22/25 19:59 Last Infusion: 03/22/25 20:55 Dose: Infused Documented By: Admin: 03/22/25 20:10 Dose: 100 mls/hr Documented By: CG Phenytoin Sodium 1,400 mg/ (Sodium Chloride) 128 mls @ 256 mls/hr IV X1 ONE Stop: 03/22/25 20:44 Last Infusion: 03/22/25 21:12 Dose: Infused Documented By: Admin: 03/22/25 20:54 Dose: 256 mls/hr Documented By: SALVATORE Lacosamide (Lacosamide Inj 200 Mg/20 Ml Vial) 50 mg IVP X1 ONE Stop: 03/22/25 20:07 Last Admin: 03/22/25 20:53 Dose: 50 mg Documented By: SALVATORE Phenytoin Sodium (Phenytoin Inj 50 Mg/Ml Vial 5 Ml) 1,397 mg IV X1 ONE Stop: 03/22/25 20:03 Last Admin: 03/22/25 21:00 Dose: Not Given Documented By: CG Non-Admin Reason: Discontinued see above Diagnosis Differential diagnosis: CVA, TIA, dehydration, UTI, metabolic disturbance, hemorrhage Most likely dx, and/or detailed dx discussion: AMS, seizure, leukocytosis Dispositon Disposition: Admit
--- NOTE | 2025-03-22 19:27 | XR_ITS ---
Examination: CT brain head without contrast. 2-D sagittal coronal reconstructions Date and time of exam:March 22, 2025 1935 hours INDICATIONS: Stroke alert, onset altered mental status today CTDI: vol (mGy):51.7 DLP: (mGycm):1164 Technique: Multiple CT axial sections of the brain have been obtained, 5 mm slice thickness. Contrast has not been administered. 2-D sagittal, coronal reconstructions have been obtained Low dose protocols were performed. One or more of the following dose reduction techniques were used; automated exposure control, adjustment of the mA and/or KV according to patient size, use of iterative reconstruction technique. Findings: Again noted left posterior parietal craniotomy defect with encephalomalacia in the left occipital lobe Again noted old infarct in the left caudate nucleus as well as old infarct left brain stem Mild ventricular enlargement No interval acute hemorrhage or mass effect IMPRESSION: No interval acute hemorrhage mass effect or midline shift
--- NOTE | 2025-03-22 19:27 | XR_ITS ---
Examination: CTA carotids with intravenous contrast CTA brain, head with intravenous contrast. 2-D sagittal, coronal reconstructions. 3-D reconstructions. Exam date and time: March 22, 2025, 1945 hours Comparison February 11, 2025 INDICATIONS: Stroke alert today, onset focal neurologic deficit CTDI: vol (mGy) 17.7 DLP: (mGycm) 457 Technique: Multiple CTA axial brain, head carotid images post intravenous contrast injection 75 cc, [id number]. 2-D sagittal, coronal reconstructions. 3-D reconstructions, 3-D post processing including vascular maximum intensity projection images. Low dose protocols were performed. One or more of the following dose reduction techniques were used; automated exposure control, adjustment of the mA and/or KV according to patient size, use of iterative reconstruction technique. 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
--- NOTE | 2025-03-22 19:27 | EKG_ITS ---
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
--- NOTE | 2025-03-22 19:37 | PC.NURSE ---
Case Consult 03/22/2025 19:37:33 [facility] Case # [id number] has been created.
[2025-03-22 20:05] LABS: Lactate (Lactic Acid) 1.5 mMol/L (0.4-2.0)
[2025-03-22 20:06] LABS: Base Excess, Venous -2 (-3-3); O2 Saturation, Venous 96 % (96-97); PCO2, Venous 40 mmHg (36-56); PO2, Venous 79 mmHg (15-58); pH, Venous 7.38 (7.33-7.66)
[2025-03-22] MEDS: RINGERS LACTATED 1000 ML 1,000 ML 999 ML IV (20:09)
[2025-03-22] MEDS: cefTRIAXone/D5w 1gm IV premix 1 GM/50 ML BAG IV (20:10)
--- NOTE | 2025-03-22 20:10 | ESCONSULT_ITS ---
Tele Neuro Consultation Consultation Date 03/22/25 Most Recent Vital Signs Last Vital Signs Temp 103.5 F H 03/22/25 19:20 Pulse 106 H 03/22/25 19:20 Resp 20 03/22/25 19:20 BP 138/109 H 03/22/25 19:20 Pulse Ox 94 L 03/22/25 19:20 O2 Del Method Nasal Cannula 03/22/25 19:20 O2 Flow Rate 3 03/22/25 19:20 Consultation Narrative [facility] Tele[facility]urology Consult Services Patient Name:???Wil Garcia Date of :???1960 Date of Service:???03/22/2025 19:37:33 Diagnosis:?I63.89 - Cerebrovascular accident (CVA) due to other mechanism (HCCC) Impression: ?64 year old male with PMH of HTN, recent infarcts in right occipital right temporal lobe in January 2025, lung cancer with metastasis to the brain, epilepsy on several antiseizure medications. He became less responsive had a choking episode and since then has been nonverbal. On examination he is nonverbal not following commands. ? ?I would recommend evaluation for infection and/or toxic metabolic disturbance, including UDS. ?Please bolus with Dilantin 20mg.kg and continue all AEDS. ? ?In addition please obtain EEG to evaluate for epileptiform activity and MRI brain with and without contrast to evaluate for structural abnormalities that could be serving as a seizure nidus Our recommendations are outlined below. Recommendations: ? Stroke/Telemetry Floor ? Neuro Checks (Q1) ? Bedside Swallow Eval ? DVT Prophylaxis ? IV Fluids, Normal Saline ? Head of Bed 30 Degrees ? Euglycemia and Avoid Hyperthermia (PRN Acetaminophen) ? Initiate dual antiplatelet therapy with Aspirin 81 mg daily and Clopid ogrel 75 mg daily. ? Antihypertensives PRN if Blood pressure is greater than 220/120 or there is a concern for End organ damage/contraindications for permissive HTN. If blood pressure is greater than 220/120 give labetalol PO or IV or Vasotec IV with a goal of 15% reduction in BP during the first 24 hours. Sign Out: ? Discussed with Emergency Department Provider ? Discussed with Rapid Response Team Advanced Imaging: Advanced imaging has been ordered. Results pending. Metrics: Last Known Well: 03/22/2025 18:00:00 Dispatch Time: 03/22/2025 19:37:33 Arrival Time: 03/22/2025 19:41:19 Initial Response Time: 03/22/2025 19:41:12Symptoms: unresponsive . Initial patient interaction: 03/22/2025 19:50:00 NIHSS Assessment Completed: 03/22/2025 19:55:00Patient is not a candidate for Thrombolytic. Thrombolytic Medical Decision: 03/22/2025 19:55:01Patient was not deemed candidate for Thrombolytic because of following reasons: History of previous intracranial hemorrhage, intracranial neoplasm . CT Head: CT head unremarkable for acute infarction or hemorrhage per Radiology: no acute hemorrhage Primary Provider Notified of Diagnostic Impression and Management Plan on: 03/22/2025 20:03:57 History of Present Illness:Patient is a 64 year old Male. Patient was brought by EMS for symptoms of unresponsive . 64 year old male with PMH of HTN, recent infarcts in right occipital right temporal lobe in January 2025, lung cancer with metastasis to the brain, epilepsy on several antiseizure medications He residing at a nursing facility and was eating and became less responsive. He was then non verbal and not following commands. His rectal temperature was 101. Past Medical History: ?Hypertension ?Stroke ?Seizures Medications: No Anticoagulant use? No Antiplatelet use Reviewed EMR for current medications Allergies:? Reviewed Social History: Unable To Obtain Due To Patient Status :?Patient Is Confused Family History: There is no family history of premature cerebrovascular disease pertinent to this consultation ROS : 14 Points Review of Systems was performed and was negative except mentioned in HPI. Past Surgical History: There Is No Surgical History Contributory To Today?s Visit Examination: BP(138/101),?Pulse(100), 1A: Level of Consciousness - Alert; keenly responsive?+ 0 1B: Ask Month and Age - Could Not Answer Either Question Correctly?+ 2 1C: Blink Eyes & Squeeze Hands - Performs Both Tasks?+ 0 2: Test Horizontal Extraocular Movements - Normal?+ 0 3: Test Visual [place] - No Visual Loss?+ 0 4: Test Facial Palsy (Use Grimace if Obtunded) - Normal symmetry?+ 0 5A: Test Left Arm Motor Drift - Drift, but doesn't hit bed?+ 1 5B: Test Right Arm Motor Drift - Drift, but doesn't hit bed?+ 1 6A: Test Left Leg Motor Drift - No Effort Against [place]?+ 3 6B: Test Right Leg Motor Drift - No Effort Against [place]?+ 3 7: Test Limb Ataxia (FNF/Heel-[place]) - No Ataxia?+ 0 8: Test Sensation - Mild-Moderate Loss: Less Sharp/More Dull?+ 1 9: Test Language/Aphasia - Mute/Global Aphasia: No Usable Speech/Auditory Comprehension?+ 3 10: Test Dysarthria - Severe Dysarthria: Unintelligble Slurring or Out of Proportion to Aphasia?+ 2 11: Test Extinction/Inattention - No abnormality?+ 0 NIHSS Score:?16 NIHSS Free Text :?Examination largely nonfocal and he is nonverbal and grunting not able to follow commands Pre-Morbid Modified [place] Scale:1 Points = No significant disability despite symptoms; able to carry out all usual duties and activities Spoke with :?ER physician This consult was conducted in real time using interactive audio and video technology. Patient was informed of the technology being used for this visit and agreed to proceed. Patient located in hospital and provider located at home/office setting. Patient is being evaluated for possible acute neurologic impairment and high probability of imminent or life-threatening deterioration. I spent total of 50 minutes providing care to this patient, including time for face to face visit via telemedicine, review of medical records, imaging studies and discussion of findings with providers, the patient and/or family. Dr Stephan Trejo [facility] For Inpatient follow-up with [facility] physician please call [facility] at . As we are not an outpatient service for any post hospital discharge needs please contact the hospital for assistance. If you have any questions for the [facility] physicians or need to reconsult for clinical or diagnostic changes please contact us via [facility] at .
[2025-03-22] MEDS: ACETAMINOPHEN SUPP 325 MG SUPP 650 MG PR (20:13)
[2025-03-22 20:18] LABS: Basophils # (Auto) 0.1 Thou/mm3 (0.0-0.2); Basophils % (Auto) 0 % (0-2.5); Eosinophils # (Auto) 0.1 Thou/mm3 (0.0-0.5); Eosinophils % (Auto) 0 % (0-10); Hematocrit 41.4 % (41.0-53.0); Hemoglobin 14.4 g/dL (13.5-16.0); Immature Granulocytes Auto 0.14 Thou/mm3 (0.00-0.00); Lymphocytes # (Auto) 0.9 Thou/mm3 (1.0-4.8); Lymphocytes % (Auto) 4 % (10-50); Mean Corpuscular HGB Conc 34.8 g/dl (31.0-37.0); Mean Corpuscular Hemoglobin 29.4 pg (25.0-35.0); Mean Corpuscular Volume 85 fL (80-100); Monocytes # (Auto) 0.9 Thou/mm3 (0.0-0.8); Monocytes % (Auto) 4 % (0-12); Neutrophils # (Auto) 20.5 Thou/mm3 (1.8-7.7); Neutrophils % (Auto) 91 % (37-80); Nucleated Red Blood Cell # 0.00 Thou/mm3 (0.00-0.00); Nucleated Red Blood Cell % 0 /100 WBC (0); Platelet Count 245 Thou/mm3 (140-440); RDW Standard Deviation 45.0 fL (35.1-43.9); Red Blood Count 4.90 Miln/mm3 (4.50-5.90); White Blood Count 22.5 Thou/mm3 (3.8-10.6)
[2025-03-22 20:23] LABS: INR 1.0 (0.9-1.3); Partial Thromboplastin Time 23.9 Seconds (22.0-36.0); Prothrombin Time 10.9 Seconds (9.0-12.2)
[2025-03-22 20:24] LABS: Ammonia 45 uMol/L (11-32)
[2025-03-22 20:35] LABS: Collection Type, Urine Catheter; Squamous Epithelial Cell,Urine 0 /hpf (0-5)
[2025-03-22 20:47] LABS: T4 (Thyroxine) 4.6 mcg/dL (4.5-10.9)
[2025-03-22 20:51] LABS: Amphetamine/Methamp Scrn,U Negative (Negative); Barbiturate Screen,Urine Negative (Negative); Benzodiazepines Screen,Urine Positive (Negative); Benzoylecgonine Screen, Ur Negative (Negative); Fentanyl Screen,Urine Negative (Negative); Opiate Screen,Urine Negative (Negative); THC Screen,Urine Negative (Negative)
[2025-03-22 20:51] LABS: Acetaminophen < 2.0 mcg/mL (10.0-20.0); Alanine Aminotransferase 15 U/L (10-49); Albumin, Serum 4.6 gm/dL (3.4-4.8); Albumin/Globulin Ratio 1.8 (1.2-2.2); Alcohol, Blood Medical < 3.0 mg/dL (0-10.0); Alkaline Phosphatase 134 U/L (46-116); Anion Gap 9 (7-16); Aspartate Amino Transferase 15 U/L (0-34); BUN/Creatinine Ratio 20 Ratio (12-20); Bilirubin,Total 0.3 mg/dL (0.3-1.2); Blood Urea Nitrogen 12 mg/dL (9-23); Calcium 9.0 mg/dL (8.3-10.6); Calcium (Corrected) 9.0 mg/dL (8.5-10.1); Carbon Dioxide 23.7 mMol/L (20.0-31.0); Chloride 109 mMol/L (98-107); Creatinine (Component) 0.6 mg/dL (0.6-1.3); Estimated Creatinine Clearance 122.9 mL/min (>60); Globulin 2.5 gm/dL (2.3-3.5); Glucose 129 mg/dL (74-106); Magnesium 1.7 mg/dL (1.6-2.6); Osmolality,Calculated 284 (275-295); Phenytoin (Dilantin) 31.8 mcg/mL; Potassium 3.5 mMol/L (3.4-5.1); Procalcitonin 0.08 ng/ml (0.0-0.49); Salicylate < 3.0 mg/dL; Sodium 142 mMol/L (136-145); Thyroid Stimulating Hormone 2.19 uIU/mL (0.55-4.78); Total Protein 7.1 gm/dL (5.7-8.2); Troponin I < 0.020 ng/mL (0.0-0.045); eGFR > 60 See Note
[2025-03-22] MEDS: LACOSAMIDE INJ 200 MG/20 ML VIAL 50 MG IVP (20:53)
[2025-03-22] MEDS: PHENYTOIN IV (20:54)
[2025-03-22] MEDS: SODIUM CHLORIDE 0.9% IV (20:54)
[2025-03-22 21:11] LABS: Bilirubin,Urine Negative (Negative); Blood,Urine Negative (Negative); Budding Yeast,Urine Present; Clarity,Urine Clear (Clear/Hazy); Color,Urine Lt-Yellow (Lt Yel-Yel); Glucose, Urine Negative (Negative); Ketones,Urine Negative (Negative); Leukocyte Esterase,Urine Negative (Negative); Nitrite,Urine Negative (Negative); PH,Urine 6.5 (5.0-7.0); Protein,Urine Negative (Neg - Trace); RBC,Urine 36 /hpf (0-3); Specific Gravity,Urine 1.046 (1.001-1.035); Urobilinogen,Urine Negative mg/dL (0.0-1.0); WBC,Urine 12 /hpf (0-5)
[2025-03-22 21:13] LABS: Culture Indicated,Urine Yes
[2025-03-22 21:39] LABS: COVID-19 Antigen (In-House) Negative (Negative)
--- NOTE | 2025-03-22 22:18 | PC.NURSE ---
I PUT A CALL OUT TO THE [facility] AT THIS TIME AND SPOKE WITH CAMERON. CAMERON ASKED THAT I FAX OVER THE PT INFORMATION AT THIS TIME IN ORDER TO GET THEIR PROVIDER DR. OVIDIO VANG ON THE PHONE.
[2025-03-23] VITALS (38 sets, daily range): BP systolic 89–144; BP diastolic 50–96; PULSE 54–86; RESP 13–34; TEMP 36.3–37; O2SAT 88–99
--- NOTE | 2025-03-23 06:03 | ECHO_ITS ---
Transthoracic Echo Report Ht (in): 72 Wt (lb): 154 Exam Location: Echo Lab Status: Emergency Roll Tube Setter: Yohana Layton Indications: Procedure Performed: BP: 130 / 71 HR: 71 Technical Quality: Adequate MEASUREMENTS (Male / Female) Normal Values 2D ECHO LV Diastolic Diameter PLAX 5.7 cm 4.2 - 5.9 / 3.9 - 5.3 cm LV Systolic Diameter PLAX 4.6 cm IVS Diastolic Thickness 0.8 cm 0.6 - 1.0 / 0.6 - 0.9 cm LVPW Diastolic Thickness 1.1 cm 0.6 - 1.0 / 0.6 - 0.9 cm LV Relative Wall Thickness 0.3 LVOT Diameter 2.3 cm LV Ejection Fraction MOD BP 46.8 % >= 55 % LV Cardiac Index MOD BP 2991.8 cm?/min?m? LV Ejection Fraction MOD 4C 42.1 % LV Cardiac Index MOD 4C 2375.3 cm?/min?m? LV Ejection Fraction 4C AL 42.8 % LV Cardiac Index 4C AL 2497.8 cm?/min?m? LV Ejection Fraction MOD 2C 50.8 % LV Cardiac Index MOD 2C 3672.6 cm?/min?m? LV Ejection Fraction 2C AL 52.2 % LV Cardiac Index 2C AL 3767.3 cm?/min?m? LA Volume Index 30.6 cm?/m? 16 - 28 cm?/m? Ascending Aorta Diameter 3.3 cm DOPPLER AV Peak Velocity 145.0 cm/s AV Peak Gradient 8.4 mmHg LVOT Peak Velocity 82.0 cm/s LVOT Peak Gradient 2.7 mmHg AV Area Cont Eq pk 2.3 cm? MV Area PHT 2.6 cm? Mitral E Point Velocity 53.4 cm/s Mitral A Point Velocity 68.9 cm/s Mitral E to A Ratio 0.8 LV E' Lateral Velocity 13.1 cm/s Mitral E to LV E' Lateral Ratio 4.1 LV E' Septal Velocity 9.6 cm/s Mitral E to LV E' Septal Ratio 5.6 PV Peak Velocity 71.9 cm/s PV Peak Gradient 2.1 mmHg FINDINGS Left Ventricle The left ventricular cavity size is moderately increased. The left ventricular wall thicknesses are normal. The left ventricular ejection fraction is moderately decreased, estimated at 35- 40%. There is grade II diastolic dysfunction of the left ventricle (pseudonormal filling pattern). Right Ventricle The right ventricle is normal in size and systolic function. The estimated right ventricular systolic pressure can not be determined due to innadequate tricuspid signal. Left Atrium The left atrium is normal by two-dimensional, color flow and Doppler imaging with no structural abnormalities, no thrombus formation present. Right Atrium The right atrial cavity size is moderately increased. Atrial Septum The interatrial septum appears normal with no evidence of a shunt. Agitated saline bubble study negative for PFO/ASD. Aorta The aorta is normal by two-dimensional, color flow and Doppler interrogation. Mitral Valve The mitral valve is normal by two-dimensional, color flow and Doppler interrogation. There is trace mitral regurgitation. Aortic Valve The aortic valve is trileaflet and normal by two-dimensional, color flow and Doppler interrogation. There is no significant aortic valve regurgitation. Tricuspid Valve The tricuspid valve is normal by two-dimensional, color flow and Doppler interrogation. There is no significant tricuspid valve regurgitation. Pulmonic Valve The pulmonic valve is not well visualized. There is trace pulmonic valve regurgitation. Vessels The pulmonary artery appears normal. The inferior vena cava pulmonary and hepatic veins appear normal. Pericardium The pericardium is not well visualized. Other Findings And CONCLUSIONS Indications: Stroke Work Up Bubble study negative for any PFO or ASD. Consider SARA if high index of clinical suspicion. Mild LV dilatation. Mild LV systolic dysfunction with estimated EF 40 to 45%. Indeterminate diastolic dysfunction. Normal RV size and function. Unable to measure RVSP because of inadequate TR jet. Mild RA Dilatation.Trace MR. No pericardial effusion Geo Bird (Electronically Signed) Final Date: 23 March 2025 18:31
--- NOTE | 2025-03-23 06:05 | ESHP_ITS ---
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 According to the family patient was eating and then he suddenly became altered and became aphasic. On arriving to the ER there was signs of horizontal nystagmus and possible seizure. ER reached out to patient's neurologist at [facility] and recommended keeping the patient to complete stroke workup and to continue his antiepileptic medications although which were given IV and will transition to p.o. route through NG tube. ED course: ED vitals: BP 136/84, HR 102, RR 24, temperature 102.0 ?F, saturating 96% on 6 L nasal cannula ED labs: Leukocytosis, ammonia 45 rest of CMP unremarkable, UA negative for UTI some yeast noted In the ED patient received phenytoin, 1 L LR, lacosamide, Rocephin PMHx: As above surgical history: Craniotomy, one third lung resection, brain metastatic mass surgery, left hip replacement and right hip fracture Allergies: No known allergies Medications: Pending official med rec, patient apparently takes phenytoin 300 mg nightly, Trileptal 900 mg p.o. twice daily, topiramate 25 mg p.o. twice daily and was recently started on GDMT Family History: Positive for history of breast cancer in mother and lung cancer in father Social history: [id number]-pauf-[id number] history currently not smoking, occasional alcohol use, use of marijuana currently but denies any other illicit substances Review of Systems Review of Systems ROS Unobtainable: unobtainable due to mental status and unobtainable due to medical condition Exam Vital Signs Temp Pulse Resp BP Pulse Ox O2 Del Method O2 Flow Rate 98.2 F 55 L 16 122/70 98 Room Air 2 03/23/25 05:24 03/23/25 05:24 03/23/25 05:24 03/23/25 05:24 03/23/25 05:24 03/23/25 05:03/23/25 02:05 Narrative Exam Physical Exam GENERAL: NAD, HEENT: dry mucosa. opens eyes to painful stimuli CARDIO: Heart RRR, no obvious murmurs PULM: No noted coughing/dyspnea CTA B/L, no R/W/R GI: Abdomen soft, nondistended, no pain on palpation. BSx4 SKIN/MSK/EXT: no pain on palpation. Pedal pulses present B/L Results: Labs 03/22/25 19:53 03/22/25 19:53 Labs: Short CBC 03/22/25 Range/Units 19:53 WBC 22.5 H (3.8-10.6) Thou/mm3 Hgb 14.4 (13.5-16.0) g/dL Hct 41.4 (41.0-53.0) % Plt Count 245 D (140-440) Thou/mm3 BMP 03/22/25 19:53 Sodium 142 Potassium 3.5 Chloride 109 H Carbon Dioxide 23.7 BUN 12 Creatinine 0.6 Glucose 129 H Calcium 9.0 Cardiac Enzymes 03/22/25 Range/Units 19:53 Troponin I < 0.020 (0.0-0.045) ng/mL Liver Function 03/22/25 Range/Units 19:53 Total Bilirubin 0.3 (0.3-1.2) mg/dL AST 15 (0-34) U/L ALT 15 (10-49) U/L Alkaline Phosphatase 134 H (46-116) U/L Albumin 4.6 (3.4-4.8) gm/dL Urine 03/22/25 Range/Units 20:20 Urine Color Lt-Yellow (Lt Yel-Yel) Urine Clarity Clear (Clear/Hazy) Urine pH 6.5 (5.0-7.0) Ur Specific [place] 1.046 H (1.001-1.035) Urine Protein Negative (Neg - Trace) Urine Glucose (UA) Negative (Negative) ABG Interpretation ABG results: 03/22/25 19:53 VBG pH 7.38 VBG pCO2 40 VBG pO2 79 H VBG Base Excess -2 Quality Measures Quality Measures sepsis Current suspected stage: ruled out Possible source: pulmonary Blood cultures ordered: yes Antibiotic ordered: No and none Medications Home Medications and Allergies Home Medications ?Medication ?Instructions ?Recorded ?Confirmed ?Type Phenytoin Sodium Extended * 300 mg PO HS #0 caps 04/1402/12/25 History (DILANTIN *) oxcarbazepine 300 mg tablet 900 mg PO BID #0 tabs 03/2402/12/25 History (Trileptal) tamsulosin 0.4 mg capsule 0.4 mg PO QDAY 05/05/2001/22 History topiramate 25 mg sprinkle capsule 25 mg PO BID Seizure s 11/28/22 02/12/25 History atorvastatin 20 mg tablet 20 mg PO DAILY 02/12/2501/22 History Allergies Allergy/AdvReac Type Severity Reaction Status Date / Time No Known Allergies Allergy Verified 03/22/25 19:14 Visit Medications Acetaminophen (Acetaminophen 325 Mg Tablet) 650 mg PO Q6H PRN PRN Reason: Fever >100.4 Stop: 04/22/25 06:02 Acetaminophen (Acetaminophen 325 Mg Tablet) 1,000 mg PO Q6H PRN PRN Reason: PAIN SCALE 1-3 (mild Stop: 04/22/25 06:02 Sodium Chloride (Ns) 1,000 mls @ 75 mls/hr IV .Q40O49L EDYTA Stop: 04/22/25 06:14 Labetalol HCl (Labetalol Inj 5 Mg/Ml Vial 20 Ml) 10 mg IVP Q6H PRN PRN Reason: SBP>220, DBP>110 Stop: 04/22/25 06:02 Ondansetron HCl (Ondansetron Inj 2 Mg/Ml Inj 2 Ml) 4 mg IVP Q6H PRN; Protocol PRN Reason: NAUSEA OR VOMITING Stop: 04/22/25 06:02 Discontinued Medications Acetaminophen (Acetaminophen Supp 325 Mg Supp) [address] X1 ONE Stop: 03/22/25 19:30 Last Admin: 03/22/25 20:13 Dose: 650 mg Lactated Ringer's (Lactated Ringers) 1,000 mls @ 999 mls/hr IV .Q1H1M ONE Stop: 03/22/25 20:29 Last Infusion: 03/22/25 21:12 Dose: Infused Ceftriaxone Sodium/Dextrose (Rocephin/D5w 1gm Iv Premix) 1 gm in 50 mls @ 100 mls/hr IV X1 ONE Stop: 03/22/25 19:59 Last Infusion: 03/22/25 20:55 Dose: Infused Phenytoin Sodium 1,400 mg/ (Sodium Chloride) 128 mls @ 256 mls/hr IV X1 ONE Stop: 03/22/25 20:44 Last Infusion: 03/22/25 21:12 Dose: Infused Lacosamide (Lacosamide Inj 200 Mg/20 Ml Vial) 50 mg IVP X1 ONE Stop: 03/22/25 20:07 Last Admin: 03/22/25 20:53 Dose: 50 mg Phenytoin Sodium (Phenytoin Inj 50 Mg/Ml Vial 5 Ml) 1,397 mg IV X1 ONE Stop: 03/22/25 20:03 Last Admin: 03/22/25 21:00 Dose: Not Given Assessment & Plan Plan 64-year-old male with past medical history as stated above who presented today due to new onset aphasia. Patient will be admitted for stroke workup. 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 Sanderson Presented with new onset aphasia per the family, on arrival to the ER patient also was noted to have horizontal nystagmus possibly in the setting of seizures Head CT shows No interval acute hemorrhage mass effect or midline shift Head/neck CTA shows No significant neck arterial stenoses, No cerebral arterial vessel occlusions ? Resume all patient's antiseizure medications, per neurology recommendations ? MRI brain ? Aspirin 81 mg ? Plavix 75 mg ? IV fluids ? Every 4 neurochecks ? IV fluids ? Speech, physical therapy eval ? N.p.o. ? Aspiration precautions ? Seizures precautions Chronic problems: #history of lung cancer with metastasis to brain in remission status post- radiation and surgical therapy, #HFrEF EF of 35 to 40%, #Benign prostate hypertrophy, #Hypertension ?Resume home meds when appropriate Health Maintenance: Disposition: Telemetry, CVA workup Fluids: NS Feeding: N.p.o. Thrombo prophylaxis: SCDs Gastric Ulcer prophylaxis: None CODE STATUS: DNR/DNI Case discussed with my attending Dr. Marima Mccloud MD PGY-2 Disclaimer: Despite multiple revisions, due to the dictation software being used, the document bellow may not be free of grammatical errors including phonetic/typographic errors. However, this does not deter from our commitment to providing health care in the patient's best interest in mind. Attending Provider Attestation/Addendum 64-year-old male patient was admitted for aphasia. The patient has lung cancer with metastasis. Patient will be admitted for stroke workup for aphasia. I discussed with and supervised the resident physician who took care of this patient. I agree with the assessment and plan as above.
--- NOTE | 2025-03-23 07:57 | PC.NURSE ---
Nicol from [facility] called for report on patient. Report given, no further questions asked. Attempted NG tube insertion X2 per Resident orders. NG tube placement failed x 2.
--- NOTE | 2025-03-23 08:08 | ESPR_ITS ---
Documentation for date of: 03/23/25 Subjective Subjective Interval history: Patient evaluated at the bedside, not currently in the emergency room. Patient has aphasia at baseline, noted horizontal nystagmus. Antiepileptic medications were resumed, with the exception of phenytoin. Phenytoin levels 31.8, which were drawn prior to IV phenytoin push. Repeat phenytoin levels more than 40, lab unable to dilute the sample to give an exact number. Spoke to [employer] [place], recommended every 4 hour phenytoin level checks, monitor for downtrend. Conservative for management. Holding off on phenytoin until levels in the safe range. Neurology consulted Dr. Christina was placed, but neurology unable to follow due to patient's past. Patient has a neurologist at [facility] [place], apparently ER tried to transfer the patient yesterday and was recommended to treat patient's acute problem, no need for transfer. Patient was admitted by overnight team after transfer was unsuccessful. Currently patient undergoing workup for stroke, pending MRI, echocardiogram. Quite possible acute encephalopathy precipitated by phenytoin overdose. Exam Vital Signs Temp Pulse Resp BP Pulse Ox O2 Del Method O2 Flow Rate 98.4 F 64 18 144/83 H 98 Nasal Cannula 3 03/23/25 07:50 03/23/25 07:50 03/23/25 07:50 03/23/25 07:50 03/23/25 07:50 03/23/25 07:50 03/23/25 07:50 Narrative Exam Physical Exam GENERAL: NAD, HEENT: dry mucosa. opens eyes to painful stimuli CARDIO: Heart RRR, no obvious murmurs PULM: No noted coughing/dyspnea CTA B/L, no R/W/R GI: Abdomen soft, nondistended, no pain on palpation. BSx4 SKIN/MSK/EXT: no pain on palpation. Pedal pulses present B/L Objective Labs 03/24/25 05:57 03/24/25 05:57 Labs: Laboratory Results - last 24 hr 03/22/25 03/22/25 03/22/25 19:53 20:20 21:14 WBC 22.5 H RBC 4.90 Hgb 14.4 Hct 41.4 MCV 85 MCH 29.4 MCHC 34.8 RDW Std Deviation 45.0 H Plt Count 245 D Neut % (Auto) 91 H Lymph % (Auto) 4 L [place] % (Auto) 4 Eos % (Auto) 0 Baso % (Auto) 0 Neut # (Auto) 20.5 H Lymph # (Auto) 0.9 L [place] # (Auto) 0.9 H Eos # (Auto) 0.1 Baso # (Auto) 0.1 Immature Gran # (Auto) 0.14 H Absolute Nucleated RBC 0.00 Immature Gran % 1 H Nucleated RBC % 0 PT 10.9 INR 1.0 APTT 23.9 VBG pH 7.38 VBG pCO2 40 VBG pO2 79 H VBG O2 Sat (Indy) 96 VBG Base Excess -2 Sodium 142 Potassium 3.5 Chloride 109 H Carbon Dioxide 23.7 Anion Gap 9 BUN 12 Creatinine 0.6 Estim Creat Clear Calc 122.9 eGFR > 60 BUN/Creatinine Ratio 20 Glucose 129 H Calculated Osmolality 284 Lactic Acid 1.5 Calcium 9.0 Corrected Calcium 9.0 Magnesium 1.7 Total Bilirubin 0.3 AST 15 ALT 15 Alkaline Phosphatase 134 H Ammonia 45 H Troponin I < 0.020 Total Protein 7.1 Albumin 4.6 Globulin 2.5 Albumin/Globulin Ratio 1.8 Procalcitonin 0.08 TSH 2.19 Thyroxine (T4) 4.6 Ur Collection Type Catheter Urine Color Lt-Yellow Urine Clarity Clear Urine pH 6.5 Ur Specific [place] 1.046 H Urine Protein Negative Urine Glucose (UA) Negative Urine Ketones Negative Urine Blood Negative Urine Nitrite Negative Urine Bilirubin Negative Urine Urobilinogen (Auto) Negative Ur Leukocyte Esterase Negative Urine RBC 36 H Urine WBC 12 H Ur Squamous Epith Cells 0 Urine Bacteria None Urine Yeast (Budding) Present A Ur Culture Indicated? Yes Salicylates < 3.0 Urine Opiates Screen Negative Urine Fentanyl Screen Negative Acetaminophen < 2.0 L Ur Barbiturates Screen Negative Phenytoin 31.8 H* U Amphetamin/Meth Scrn Negative U Benzodiazepines Scrn Positive A U Cocaine Metab Screen Negative U Marijuana (THC) Screen Negative Ethyl Alcohol < 3.0 SARS-CoV-2 Ag (Rapid) Negative ABG Interpretation ABG results: 03/22/25 19:53 VBG pH 7.38 VBG pCO2 40 VBG pO2 79 H VBG Base Excess -2 Quality Measures Quality Measures sepsis Current suspected stage: ruled out Possible source: pulmonary Blood cultures ordered: yes Antibiotic ordered: Yes and none Assessment & Plan Assessment Current Active Medications: Generic Name Dose Route Start Last Admin Trade Name Freq PRN Reason Stop Dose Admin Acetaminophen 650 mg 03/23/25 06:03 Acetaminophen 325 Mg Tablet PO 04/22/25 06:02 Q6H PRN Fever >100.4 Acetaminophen 1,000 mg 03/23/25 06:03 Acetaminophen 325 Mg Tablet PO 04/22/25 06:02 Q6H PRN PAIN SCALE 1-3 (mild Aspirin 81 mg 03/23/25 09:00 Aspirin Ec 81 Mg Tabec PO 04/22/25 08:59 QDAY EDYTA Atorvastatin Calcium 80 mg 03/23/25 21:00 Atorvastatin Calcium 20 Mg Tablet PO 04/22/25 20:59 HS EDYTA Clopidogrel Bisulfate 75 mg 03/23/25 09:00 Clopidogrel Bisulfate 75 Mg Tablet PO 04/22/25 08:59 QDAY EDYTA Sodium Chloride 1,000 mls @ 75 mls/hr 03/23/25 06:15 Ns IV 04/22/25 06:14 .[id number] EDYTA Labetalol HCl 10 mg 03/23/25 06:03 Labetalol Inj 5 Mg/Ml Vial 20 Ml IVP 04/22/25 06:02 Q6H PRN SBP>220, DBP>110 Ondansetron HCl 4 mg 03/23/25 06:03 Ondansetron Inj 2 Mg/Ml Inj 2 Ml IVP 04/22/25 06:02 Q6H PRN NAUSEA OR VOMITING Protocol Plan 64-year-old male with past medical history as stated above who presented today due to new onset aphasia. Patient will be admitted for stroke workup. 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 Sanderson Presented with new onset aphasia per the family, on arrival to the ER patient also was noted to have horizontal nystagmus possibly in the setting of seizures Head CT shows No interval acute hemorrhage mass effect or midline shift Head/neck CTA shows No significant neck arterial stenoses, No cerebral arterial vessel occlusions ? Resume all patient's antiseizure medications, per tele neurology recommendations ? MRI brain ? Aspirin 81 mg ? Plavix 75 mg ? IV fluids ? Every 4 neurochecks ? IV fluids ? Speech, physical therapy eval ? N.p.o. ? Aspiration precautions ? Seizures precautions #Acute encephalopathy #Phenytoin toxicity Antiepileptic medications were resumed, with the exception of phenytoin. Phenytoin levels 31.8, which were drawn prior to IV phenytoin push. Repeat phenytoin levels more than 40, lab unable to dilute the sample to give an exact number. Spoke to poison control [place], recommended every 4 hour phenytoin level checks, monitor for downtrend. Conservative for management. Holding off on phenytoin until levels in the safe range. Neurology consulted Dr. Christina was placed, but neurology unable to follow due to patient's past. Patient has a neurologist at [facility] [place], apparently ER tried to transfer the patient yesterday and was recommended to treat patient's acute problem, no need for transfer. Patient was admitted by overnight team after transfer was unsuccessful. Currently patient undergoing workup for stroke, pending MRI, echocardiogram. Quite possible acute encephalopathy precipitated by phenytoin overdose. ? Every 4 hours phenytoin levels ? Hold phenytoin until levels within safe range. #Acute hypoxic respiratory failure #Concern for aspiration pneumonia Started on antibiotics, was seen saturating well on 3 L, oxygen, but had acute hypoxic event, started on oxygen mask at 10 L. ? Repeat chest x-ray was ordered, ? ABG was ordered. ? IV ceftriaxone once daily ? IV metronidazole 3 times daily Chronic problems: #history of lung cancer with metastasis to brain in remission status post- radiation and surgical therapy, #HFrEF EF of 35 to 40%, #Benign prostate hypertrophy, #Hypertension ?Resume home meds when appropriate Health Maintenance: Disposition: Telemetry, CVA workup Fluids: NS Feeding: N.p.o. Thrombo prophylaxis: SCDs Gastric Ulcer prophylaxis: None CODE STATUS: DNR/DNI Case discussed with my attending Dr. Mariam Munguia MD PGY-2 Attending Provider Attestation/Addendum I have discussed and was present for the essential components of the history, physical examination, diagnosis, and treatment plan with the resident. I agree with the patient's care as documented by the resident and amended herein by me. Agapito Payton DO. Although this document has been carefully reviewed, there may still be some phonetic and other typographical errors. These errors are purely grammatical due to imperfections in the software program and should not be construed in any way to compromise the substance of the patient's medical care during this visit.
[2025-03-23] MEDS: metroNIDAZOLE/NS 500 MG IVPB 500 MG/100 ML BAG 200 MG IV ×3 (09:42→21:23)
[2025-03-23] MEDS: SODIUM CHLORIDE 0.9% 1000 ML 1,000 ML 75 ML IV ×2 (09:42→15:55)
--- NOTE | 2025-03-23 11:41 | PC.NURSE ---
Pt not given anything by mouth including meds due to failing swallow study. Pt is a high aspiration risk. Attempted NG tube Multiple times, pt not tolerating
[2025-03-23 14:17] LABS: Phenytoin (Dilantin) > 40.0 mcg/mL
--- NOTE | 2025-03-23 14:20 | PCS.ST ---
Unable to actively participate for swallowing evaluation by Speech therapy at this time. Speech will check status in AM.
--- NOTE | 2025-03-23 16:13 | XR_ITS ---
Examination: AP chest single view TECHNIQUE: AP portable upright chest single view Date and time: March 23, 2025, 1626 hours INDICATIONS: Post orogastric tube placement FINDINGS: Orogastric tube sidehole at the GE junction Normal heart size Left mediastinal surgical clips Right internal jugular Port-A-Cath tip SVC Normal heart size No lobar pneumonia IMPRESSION: Advance the orogastric tube 5 cm
--- NOTE | 2025-03-23 16:19 | PD.RESPRO ---
Documentation for date of: 03/24/25 Exam Vital Signs Temp Pulse Resp BP Pulse Ox O2 Del Method O2 Flow Rate 98.2 F 61 15 99/55 L 99 Oxy Mask 3 03/23/25 12:36 03/23/25 14:30 03/23/25 14:30 03/23/25 14:30 03/23/25 14:30 03/23/25 12:36 03/23/25 07:50 Objective Labs 03/24/25 05:57 03/24/25 05:57 Labs: Laboratory Results - last 24 hr 03/22/25 03/22/25 03/22/25 19:53 20:20 21:14 WBC 22.5 H RBC 4.90 Hgb 14.4 Hct 41.4 MCV 85 MCH 29.4 MCHC 34.8 RDW Std Deviation 45.0 H Plt Count 245 D Neut % (Auto) 91 H Lymph % (Auto) 4 L [place] % (Auto) 4 Eos % (Auto) 0 Baso % (Auto) 0 Neut # (Auto) 20.5 H Lymph # (Auto) 0.9 L [place] # (Auto) 0.9 H Eos # (Auto) 0.1 Baso # (Auto) 0.1 Immature Gran # (Auto) 0.14 H Absolute Nucleated RBC 0.00 Immature Gran % 1 H Nucleated RBC % 0 PT 10.9 INR 1.0 APTT 23.9 VBG pH 7.38 VBG pCO2 40 VBG pO2 79 H VBG O2 Sat (Indy) 96 VBG Base Excess -2 Sodium 142 Potassium 3.5 Chloride 109 H Carbon Dioxide 23.7 Anion Gap 9 BUN 12 Creatinine 0.6 Estim Creat Clear Calc 122.9 eGFR > 60 BUN/Creatinine Ratio 20 Glucose 129 H Calculated Osmolality 284 Lactic Acid 1.5 Calcium 9.0 Corrected Calcium 9.0 Magnesium 1.7 Total Bilirubin 0.3 AST 15 ALT 15 Alkaline Phosphatase 134 H Ammonia 45 H Troponin I < 0.020 Total Protein 7.1 Albumin 4.6 Globulin 2.5 Albumin/Globulin Ratio 1.8 Procalcitonin 0.08 TSH 2.19 Thyroxine (T4) 4.6 Ur Collection Type Catheter Urine Color Lt-Yellow Urine Clarity Clear Urine pH 6.5 Ur Specific [place] 1.046 H Urine Protein Negative Urine Glucose (UA) Negative Urine Ketones Negative Urine Blood Negative Urine Nitrite Negative Urine Bilirubin Negative Urine Urobilinogen (Auto) Negative Ur Leukocyte Esterase Negative Urine RBC 36 H Urine WBC 12 H Ur Squamous Epith Cells 0 Urine Bacteria None Urine Yeast (Budding) Present A Ur Culture Indicated? Yes Salicylates < 3.0 Urine Opiates Screen Negative Urine Fentanyl Screen Negative Acetaminophen < 2.0 L Ur Barbiturates Screen Negative Phenytoin 31.8 H* U Amphetamin/Meth Scrn Negative U Benzodiazepines Scrn Positive A U Cocaine Metab Screen Negative U Marijuana (THC) Screen Negative Ethyl Alcohol < 3.0 SARS-CoV-2 Ag (Rapid) Negative 03/23/25 13:15 WBC RBC Hgb Hct MCV MCH MCHC RDW Std Deviation Plt Count Neut % (Auto) Lymph % (Auto) [place] % (Auto) Eos % (Auto) Baso % (Auto) Neut # (Auto) Lymph # (Auto) [place] # (Auto) Eos # (Auto) Baso # (Auto) Immature Gran # (Auto) Absolute Nucleated RBC Immature Gran % Nucleated RBC % PT INR APTT VBG pH VBG pCO2 VBG pO2 VBG O2 Sat (Indy) VBG Base Excess Sodium Potassium Chloride Carbon Dioxide Anion Gap BUN Creatinine Estim Creat Clear Calc eGFR BUN/Creatinine Ratio Glucose Calculated Osmolality Lactic Acid Calcium Corrected Calcium Magnesium Total Bilirubin AST ALT Alkaline Phosphatase Ammonia Troponin I Total Protein Albumin Globulin Albumin/Globulin Ratio Procalcitonin TSH Thyroxine (T4) Ur Collection Type Urine Color Urine Clarity Urine pH Ur Specific [place] Urine Protein Urine Glucose (UA) Urine Ketones Urine Blood Urine Nitrite Urine Bilirubin Urine Urobilinogen (Auto) Ur Leukocyte Esterase Urine RBC Urine WBC Ur Squamous Epith Cells Urine Bacteria Urine Yeast (Budding) Ur Culture Indicated? Salicylates Urine Opiates Screen Urine Fentanyl Screen Acetaminophen Ur Barbiturates Screen Phenytoin > 40.0 H* U Amphetamin/Meth Scrn U Benzodiazepines Scrn U Cocaine Metab Screen U Marijuana (THC) Screen Ethyl Alcohol SARS-CoV-2 Ag (Rapid) ABG Interpretation ABG results: 03/22/25 19:53 VBG pH 7.38 VBG pCO2 40 VBG pO2 79 H VBG Base Excess -2 Quality Measures Quality Measures sepsis Possible source: pulmonary Blood cultures ordered: yes and none Assessment & Plan Assessment Current Active Medications: Generic Name Dose Route Start Last Admin Trade Name Freq PRN Reason Stop Dose Admin Acetaminophen 650 mg 03/23/25 06:03 Acetaminophen 325 Mg Tablet PO 04/22/25 06:02 Q6H PRN Fever >100.4 Acetaminophen 1,000 mg 03/23/25 06:03 Acetaminophen 325 Mg Tablet PO 04/22/25 06:02 Q6H PRN PAIN SCALE 1-3 (mild Aspirin 81 mg 03/23/25 09:00 03/23/25 11:40 Aspirin Ec 81 Mg Tabec PO 04/22/25 08:59 Not Given QDAY EDYTA Atorvastatin Calcium 80 mg 03/23/25 21:00 Atorvastatin Calcium 20 Mg Tablet PO 04/22/25 20:59 HS EDYTA Clopidogrel Bisulfate 75 mg 03/23/25 09:00 03/23/25 11:40 Clopidogrel Bisulfate 75 Mg Tablet PO 04/22/25 08:59 Not Given QDAY EDYTA Sodium Chloride 1,000 mls @ 75 mls/hr 03/23/25 06:15 03/23/25 15:55 Ns IV 04/22/25 06:14 75 mls/hr .[id number] EDTYA Administration Metronidazole 500 mg in 100 mls @ 200 mls/hr 03/23/25 08:40 03/23/25 15:56 Flagyl 500 Mg Iv IV 03/30/25 08:39 200 mls/hr Q8HR EDYTA Administration Labetalol HCl 10 mg 03/23/25 06:03 Labetalol Inj 5 Mg/Ml Vial 20 Ml IVP 04/22/25 06:02 Q6H PRN SBP>220, DBP>110 Ondansetron HCl 4 mg 03/23/25 06:03 Ondansetron Inj 2 Mg/Ml Inj 2 Ml IVP 04/22/25 06:02 Q6H PRN NAUSEA OR VOMITING Protocol Oxcarbazepine 900 mg 03/23/25 09:00 03/23/25 11:40 Oxcarbazepine 150 Mg Tablet PO 04/22/25 08:59 Not Given BID EDYTA Tamsulosin HCl 0.4 mg 03/23/25 09:00 03/23/25 11:41 Tamsulosin Hcl 0.4 Mg Capsule PO 04/22/25 08:59 Not Given QDAY EDYTA Topiramate 25 mg 03/23/25 09:00 03/23/25 11:41 Topiramate 25 Mg Tablet PO 04/22/25 08:59 Not Given BID EDYTA
--- NOTE | 2025-03-23 16:19 | PC.CC ---
[address] Munguia with update of Dr. Mason progress note for recommendations. Dr. Munguia will call back transfer center. [address] Munguia in regards to the status of transfer for patient to [facility]. Patient was admitted from ED this morning and [facility] was contacted by ED staff last night for possible transfer. ED notes states [facility] recommended patient be admitted to inpatient services. Dr. Munguia requested that transfer center at [facility] be reached out to for update.
[2025-03-23 16:26] LABS: Base Excess -1 (-3-3); HCO3 24 mEq/L (20-26); Inspired O2, VO2 Liters 15 L/min; O2 Saturation 96 % (91-98); PCO2 40 mmHg (32.0-48.0); PO2 73 mmHg (83-108); pH, Arterial 7.39 (7.35-7.45)
[2025-03-23 16:28] LABS: Allen Test Performed/OK; Puncture Site Left Radial
--- NOTE | 2025-03-23 17:01 | XR_ITS ---
Examination: AP chest single view TECHNIQUE: AP portable upright chest single view Date and time: March 23, 2025, 1731 hours Comparison April 12, 2025, 1625 hours INDICATIONS: Reposition orogastric tube. FINDINGS: Orogastric tube coiled in the fundus of the stomach satisfactory position Left mediastinal surgical clips. Port-A-Cath tip satisfactorily positioned No pneumonia IMPRESSION: The orogastric tube is in satisfactory position in stomach
[2025-03-23 18:19] LABS: Phenytoin (Dilantin) > 40.0 mcg/mL
[2025-03-23] MEDS: TOPIRAMATE 25 MG TABLET PO (20:33)
[2025-03-23] MEDS: ATORVASTATIN CALCIUM 20 MG TABLET 80 MG PO (20:33)
[2025-03-23 22:11] LABS: Phenytoin (Dilantin) > 40.0 mcg/mL
[2025-03-24] VITALS (8 sets, daily range): BP systolic 120–146; BP diastolic 70–80; PULSE 62–91; RESP 16–20; TEMP 36.3–36.7; O2SAT 95–100; BMI 22.4; BMI 12.0
[2025-03-24 01:48] LABS: Phenytoin (Dilantin) > 40.0 mcg/mL
[2025-03-24] MEDS: SODIUM CHLORIDE 0.9% 1000 ML 1,000 ML 75 ML IV ×2 (05:12→20:59)
[2025-03-24] MEDS: metroNIDAZOLE/NS 500 MG IVPB 500 MG/100 ML BAG 200 MG IV (05:12)
[2025-03-24 06:20] LABS: Basophils # (Auto) 0.1 Thou/mm3 (0.0-0.2); Basophils % (Auto) 0 % (0-2.5); Eosinophils # (Auto) 0.0 Thou/mm3 (0.0-0.5); Eosinophils % (Auto) 0 % (0-10); Hematocrit 33.2 % (41.0-53.0); Hemoglobin 11.4 g/dL (13.5-16.0); Immature Granulocytes Auto 0.44 Thou/mm3 (0.00-0.00); Lymphocytes # (Auto) 1.6 Thou/mm3 (1.0-4.8); Lymphocytes % (Auto) 5 % (10-50); Mean Corpuscular HGB Conc 34.3 g/dl (31.0-37.0); Mean Corpuscular Hemoglobin 30.2 pg (25.0-35.0); Mean Corpuscular Volume 88 fL (80-100); Monocytes # (Auto) 2.1 Thou/mm3 (0.0-0.8); Monocytes % (Auto) 7 % (0-12); Neutrophils # (Auto) 27.7 Thou/mm3 (1.8-7.7); Neutrophils % (Auto) 87 % (37-80); Nucleated Red Blood Cell # 0.00 Thou/mm3 (0.00-0.00); Nucleated Red Blood Cell % 0 /100 WBC (0); Platelet Count 220 Thou/mm3 (140-440); RDW Standard Deviation 48.5 fL (35.1-43.9); Red Blood Count 3.77 Miln/mm3 (4.50-5.90); White Blood Count 31.9 Thou/mm3 (3.8-10.6)
--- NOTE | 2025-03-24 06:39 | XR_ITS ---
Examination: Abdomen sonogram, complete Date and time of exam: March 24, 2025 0754 hours INDICATIONS: Sepsis alert today. Technique: Multiple real-time grayscale transabdominal sonographic images of the abdomen have been obtained. Findings: Normal gallbladder Normal common bile duct 0.5 cm Pancreas obscured by bowel gas Mid distal aorta not enlarged Liver 17.5 cm fatty infiltration Normal hepatopedal portal venous flow Patent IVC Right kidney 10.1 cm cortex 1.6 cm Left kidney 10.5 cm cortex 1.5 cm Mild renal parenchyma scar formation Spleen 8.4 cm Impression: Normal gallbladder Normal common bile duct Mild to moderate hepatomegaly
[2025-03-24] MEDS: PIPER/TAZO 3.375 GM PREMIX 3.375 G/50 ML BAG IV ×3 (07:15→22:02)
[2025-03-24 07:23] LABS: Alanine Aminotransferase 11 U/L (10-49); Albumin, Serum 3.8 gm/dL (3.4-4.8); Albumin/Globulin Ratio 1.7 (1.2-2.2); Alkaline Phosphatase 100 U/L (46-116); Anion Gap 6 (7-16); Aspartate Amino Transferase 14 U/L (0-34); BUN/Creatinine Ratio 15 Ratio (12-20); Bilirubin,Total 0.3 mg/dL (0.3-1.2); Blood Urea Nitrogen 9 mg/dL (9-23); Calcium 8.4 mg/dL (8.3-10.6); Calcium (Corrected) 8.6 mg/dL (8.5-10.1); Carbon Dioxide 24.6 mMol/L (20.0-31.0); Cardiac Risk Estimate 1.7 RATIO (4.0-6.7); Chloride 111 mMol/L (98-107); Cholesterol 118 mg/dL (132-200); Creatinine (Component) 0.6 mg/dL (0.6-1.3); Estimated Creatinine Clearance 132.1 mL/min (>60); Globulin 2.2 gm/dL (2.3-3.5); Glucose 124 mg/dL (74-106); HDL Cholesterol 70 mg/dL (40-60); LDL Cholesterol,Calculated 40 mg/dL (0-130); Magnesium 1.6 mg/dL (1.6-2.6); Osmolality,Calculated 282 (275-295); Phenytoin (Dilantin) 39.2 mcg/mL; Phosphorous 2.6 mg/dL (2.4-5.1); Potassium 3.4 mMol/L (3.4-5.1); Sodium 142 mMol/L (136-145); Thyroid Stimulating Hormone 3.07 uIU/mL (0.55-4.78); Total Protein 6.0 gm/dL (5.7-8.2); Triglycerides 39 mg/dL (30-150); eGFR > 60 See Note
--- NOTE | 2025-03-24 09:09 | PC.SS ---
Follow up note: White count is up. On IV antibiotic. Blood cultures are pending.
[2025-03-24 09:25] LABS: Phenytoin (Dilantin) 36.6 mcg/mL
[2025-03-24] MEDS: CLOPIDOGREL BISULFATE 75 MG TABLET PO (09:38)
[2025-03-24] MEDS: ASPIRIN EC 81 MG TABEC PO (09:38)
[2025-03-24] MEDS: TOPIRAMATE 25 MG TABLET PO ×2 (09:38→20:01)
[2025-03-24] MEDS: TAMSULOSIN HCL 0.4 MG CAPSULE PO (09:38)
--- NOTE | 2025-03-24 10:00 | PCS.ST ---
Swallow Evaluation completed. See report for details. Acute shara-pharyngeal dysphagia with severe dysarthria of speech. Aspiration risk. Recommend Dysphagia 1/MT2 diet. Might benefit from keeping NGT in place for now. ST will follow.
[2025-03-24 12:45] LABS: Phenytoin (Dilantin) 34.5 mcg/mL
--- NOTE | 2025-03-24 17:32 | ESPR_ITS ---
Documentation for date of: 03/24/25 Subjective Subjective Interval history: Patient evaluated bedside, currently sleeping, family present bedside, we went over patient's clinical course, phenytoin toxicity, concern for stroke, pending MRI, treatment for infection with antibiotics. Questions and concerns were answered, patient was noted to be sleeping, though family did report that patient had improvement in mental status, able to hold conversation with them. We continued with phenytoin level checks, now noted downtrending phenytoin levels, will continue with holding phenytoin until levels within therapeutic range. No new fever or seizures overnight, but did notice increasing WBC count, now 31,000, ordered ultrasound abdomen to evaluate any intra-abdominal source of infection, negative for cholecystitis or pyonephritis, chest x-ray was negative for pneumonia, urinalysis did show some WBCs but unimpressive for urosepsis. Broaden antibiotic coverage with Zosyn, pending blood cultures. Pending MRI brain. Exam Vital Signs Temp Pulse Resp BP Pulse Ox O2 Del Method O2 Flow Rate 97.5 F 76 17 120/73 100 Oxy Mask 9 03/24/25 12:00 03/24/25 16:00 03/24/25 12:00 03/24/25 12:00 03/24/25 12:00 03/24/25 12:00 03/24/25 12:00 Narrative Exam Physical Exam GENERAL: NAD, currently sleeping HEENT: dry mucosa. CARDIO: Heart RRR, no obvious murmurs PULM: No noted coughing/dyspnea CTA B/L, no R/W/R GI: Abdomen soft, nondistended, no pain on palpation. BSx4 SKIN/MSK/EXT: multiple ecchymosis on both arms. no pain on palpation. Pedal pulses present B/L Objective Labs 03/24/25 05:57 03/24/25 05:57 Labs: Laboratory Results - last 24 hr 03/23/25 03/23/25 03/24/25 17:30 21:17 00:40 WBC RBC Hgb Hct MCV MCH MCHC RDW Std Deviation Plt Count Neut % (Auto) Lymph % (Auto) [place] % (Auto) Eos % (Auto) Baso % (Auto) Neut # (Auto) Lymph # (Auto) [place] # (Auto) Eos # (Auto) Baso # (Auto) Immature Gran # (Auto) Absolute Nucleated RBC Immature Gran % Nucleated RBC % Sodium Potassium Chloride Carbon Dioxide Anion Gap BUN Creatinine Estim Creat Clear Calc eGFR BUN/Creatinine Ratio Glucose Calculated Osmolality Calcium Corrected Calcium Phosphorus Magnesium Total Bilirubin AST ALT Alkaline Phosphatase Total Protein Albumin Globulin Albumin/Globulin Ratio Triglycerides Cholesterol LDL Cholesterol, Calc HDL Cholesterol Cholesterol/HDL Ratio TSH Phenytoin > 40.0 H* > 40.0 H* > 40.0 H* 03/24/25 03/24/25 03/24/25 05:57 08:27 12:11 WBC 31.9 H D RBC 3.77 L Hgb 11.4 L D Hct 33.2 L MCV 88 MCH 30.2 MCHC 34.3 RDW Std Deviation 48.5 H Plt Count 220 Neut % (Auto) 87 H Lymph % (Auto) 5 L [place] % (Auto) 7 Eos % (Auto) 0 Baso % (Auto) 0 Neut # (Auto) 27.7 H Lymph # (Auto) 1.6 [place] # (Auto) 2.1 H Eos # (Auto) 0.0 Baso # (Auto) 0.1 Immature Gran # (Auto) 0.44 H Absolute Nucleated RBC 0.00 Immature Gran % 1 H Nucleated RBC % 0 Sodium 142 Potassium 3.4 Chloride 111 H Carbon Dioxide 24.6 Anion Gap 6 L BUN 9 Creatinine 0.6 Estim Creat Clear Calc 132.1 eGFR > 60 BUN/Creatinine Ratio 15 Glucose 124 H Calculated Osmolality 282 Calcium 8.4 Corrected Calcium 8.6 Phosphorus 2.6 Magnesium 1.6 Total Bilirubin 0.3 AST 14 ALT 11 Alkaline Phosphatase 100 D Total Protein 6.0 Albumin 3.8 D Globulin 2.2 L Albumin/Globulin Ratio 1.7 Triglycerides 39 Cholesterol 118 L LDL Cholesterol, Calc 40 HDL Cholesterol 70 H Cholesterol/HDL Ratio 1.7 L TSH 3.07 Phenytoin 39.2 H* 36.6 H* 34.5 H* ABG Interpretation ABG results: 03/22/25 03/23/25 19:53 16:17 ABG pH 7.39 ABG pCO2 40 ABG pO2 73 L ABG HCO3 24 ABG O2 Saturation 96 ABG Base Excess -1 VBG pH 7.38 VBG pCO2 40 VBG pO2 79 H VBG Base Excess -2 Quality Measures Quality Measures sepsis Current suspected stage: sepsis Possible source: pulmonary Blood cultures ordered: yes Antibiotic ordered: Yes and none Assessment & Plan Assessment Current Active Medications: Generic Name Dose Route Start Last Admin Trade Name Freq PRN Reason Stop Dose Admin Acetaminophen 650 mg 03/23/25 06:03 Acetaminophen 325 Mg Tablet PO 04/22/25 06:02 Q6H PRN Fever >100.4 Acetaminophen 1,000 mg 03/23/25 06:03 Acetaminophen 325 Mg Tablet PO 04/22/25 06:02 Q6H PRN PAIN SCALE 1-3 (mild Aspirin 81 mg 03/23/25 09:00 03/24/25 09:38 Aspirin Ec 81 Mg Tabec PO 04/22/25 08:59 81 mg QDAY EDYTA Administration Atorvastatin Calcium 80 mg 03/23/25 21:00 03/23/25 20:33 Atorvastatin Calcium 20 Mg Tablet PO 04/22/25 20:59 80 mg HS EDYTA Administration Clopidogrel Bisulfate 75 mg 03/23/25 09:00 03/24/25 09:38 Clopidogrel Bisulfate 75 Mg Tablet PO 04/22/25 08:59 75 mg QDAY EDYTA Administration Sodium Chloride 1,000 mls @ 75 mls/hr 03/23/25 06:15 03/24/25 05:12 Ns IV 04/22/25 06:14 75 mls/hr .[id number] EDYTA Administration Piperacillin/Tazobactam/Dextrose 3.375 g in 50 mls @ 100 mls/hr 03/24/25 06:38 03/24/25 13:45 Zosyn IV 03/31/25 06:37 100 mls/hr Q8HR EDYTA Administration Labetalol HCl 10 mg 03/23/25 06:03 Labetalol Inj 5 Mg/Ml Vial 20 Ml IVP 04/22/25 06:02 Q6H PRN SBP>220, DBP>110 Ondansetron HCl 4 mg 03/23/25 06:03 Ondansetron Inj 2 Mg/Ml Inj 2 Ml IVP 04/22/25 06:02 Q6H PRN NAUSEA OR VOMITING Protocol Oxcarbazepine 900 mg 03/23/25 09:00 03/24/25 09:38 Oxcarbazepine 150 Mg Tablet PO 04/22/25 08:59 900 mg BID EDYTA Administration Tamsulosin HCl 0.4 mg 03/23/25 09:00 03/24/25 09:38 Tamsulosin Hcl 0.4 Mg Capsule PO 04/22/25 08:59 0.4 mg QDAY EDYTA Administration Topiramate 25 mg 03/23/25 09:00 03/24/25 09:38 Topiramate 25 Mg Tablet PO 04/22/25 08:59 25 mg BID EDYTA Administration Plan 64-year-old male with past medical history as stated above who presented today due to new onset aphasia. Patient will be admitted for stroke workup. 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 Sanderson Presented with new onset aphasia per the family, on arrival to the ER patient also was noted to have horizontal nystagmus possibly in the setting of seizures Head CT shows No interval acute hemorrhage mass effect or midline shift Head/neck CTA shows No significant neck arterial stenoses, No cerebral arterial vessel occlusions ? Resume all patient's antiseizure medications, except phyenytoin ? MRI brain is pending, ordered on admission but unable to perform due to patients irritability and hypoxia, would recommend against sedation at this point, will reassess tomorrow. ? Aspirin 81 mg ? Plavix 75 mg ? Every 4 neurochecks ? Speech, physical therapy eval ? Failed speech eval, stays N.p.o. currently on maintenance iv fluids. ? Aspiration precautions ? Seizures precautions #Acute encephalopathy #Phenytoin toxicity Antiepileptic medications were resumed, with the exception of phenytoin. Phenytoin levels 31.8, which were drawn prior to IV phenytoin push. Repeat phenytoin levels more than 40, lab unable to dilute the sample to give an exact number. Spoke to [employer] control [place], recommended every 4 hour phenytoin level checks, monitor for downtrend. Conservative for management. Holding off on phenytoin until levels in the safe range. Neurology consulted Dr. Christina was placed, but neurology unable to follow due to patient's past. Patient has a neurologist at [facility], apparently ER tried to transfer the patient yesterday and was recommended to treat patient's acute problem, no need for transfer. Patient was admitted by overnight team after transfer was unsuccessful. Currently patient undergoing workup for stroke, pending MRI, echocardiogram. Quite possible acute encephalopathy precipitated by phenytoin overdose. ? Every 4 hours phenytoin levels, now downtrending, will repeat phenytoin levels in AM. ? Hold phenytoin until levels within safe range. #Acute hypoxic respiratory failure #Concern for aspiration pneumonia Started on antibiotics, was seen saturating well on 3 L, oxygen, but had acute hypoxic event, started on oxygen mask at 10 L. ? Repeat chest x-ray was ordered, ? ABG was ordered. ? IV ceftriaxone once daily ? IV metronidazole 3 times daily #Leucocytosis No new fever or seizures overnight, but did notice increasing WBC count, now 31,000, ordered ultrasound abdomen to evaluate any intra-abdominal source of infection, negative for cholecystitis or pyonephritis, chest x-ray was negative for pneumonia, urinalysis did show some WBCs but unimpressive for urosepsis. Broaden antibiotic coverage with Zosyn, pending blood cultures. Pending MRI brain. - Follow blood cultures and urine cultures. - Chronic problems: #history of lung cancer with metastasis to brain in remission status post- radiation and surgical therapy, #HFrEF EF of 35 to 40%, #Benign prostate hypertrophy, #Hypertension ?Resume home meds when appropriate Health Maintenance: Disposition: Telemetry, CVA workup Fluids: NS Feeding: N.p.o. Thrombo prophylaxis: SCDs Gastric Ulcer prophylaxis: None CODE STATUS: DNR/DNI Case discussed with my attending DO Ezra Pfeiffer MD PGY-3 Attending Provider Attestation/Addendum I have discussed and was present for the essential components of the history, physical examination, diagnosis, and treatment plan with the resident. I agree with the patient's care as documented by the resident and amended herein by me. Agapito Payton DO. Although this document has been carefully reviewed, there may still be some phonetic and other typographical errors. These errors are purely grammatical due to imperfections in the software program and should not be construed in any way to compromise the substance of the patient's medical care during this visit.
[2025-03-24] MEDS: ATORVASTATIN CALCIUM 20 MG TABLET 80 MG PO (20:01)
[2025-03-25] VITALS (10 sets, daily range): BP systolic 99–144; BP diastolic 55–91; PULSE 61–93; RESP 4–21; TEMP 36.2–36.7; O2SAT 85–100; BMI 22.5; BMI 22.4
--- NOTE | 2025-03-25 | XR_ITS ---
Examinations: MRI Brain without intravenous contrast. MRA brain without intravenous contrast. MRA carotids without intravenous contrast 3-D vascular reconstructions Date and time of exam: March 25, 2025 1057 hours INDICATIONS: Stroke alert March 22, 2025, onset focal neurologic deficit, history acute infarcts right occipital right temporal lobe on brain MRI February 11, 2025 COMPARISON: February 11, 2025 Technique: Multiple axial and sagittal images of the brain have been obtained MRA brain carotid images without contrast obtained, including 3-D postprocessing, vascular maximum intensity projection images Findings: [place] is not enlarged. The optic chiasm and infundibular stalk are not remarkable. Prepontine and interpeduncular cisterns are not enlarged. No localized enlargement of the medulla or michael. Fourth ventricle and cerebellar tonsils normal in position. Subacute hemorrhage is not seen. Fourth ventricle is midline. Mass in the cerebellopontine angle region is not evident. 7th and 8th nerve complexes exhibits symmetry. Globes are symmetrical with no retro-orbital mass. Increased white matter signal large old infarct left occipital lobe Diffusion-weighted images demonstrate no focus of restricted diffusion Mass-effect upon the ventricular system is not identified. MRA carotid images no significant carotid stenoses. MRA brain images no large vessel occlusions Impression: Negative for acute hemorrhage mass effect or midline shift No acute infarct Large old infarct left occipital lobe
[2025-03-25 02:15] LABS: Phenytoin (Dilantin) 31.4 mcg/mL
[2025-03-25] MEDS: PIPER/TAZO 3.375 GM PREMIX 3.375 G/50 ML BAG IV ×3 (05:40→21:14)
[2025-03-25 07:37] LABS: Basophils # (Auto) 0.1 Thou/mm3 (0.0-0.2); Basophils % (Auto) 0 % (0-2.5); Eosinophils # (Auto) 0.3 Thou/mm3 (0.0-0.5); Eosinophils % (Auto) 2 % (0-10); Hematocrit 32.4 % (41.0-53.0); Hemoglobin 11.0 g/dL (13.5-16.0); Immature Granulocytes Auto 0.08 Thou/mm3 (0.00-0.00); Lymphocytes # (Auto) 2.2 Thou/mm3 (1.0-4.8); Lymphocytes % (Auto) 13 % (10-50); Mean Corpuscular HGB Conc 34.0 g/dl (31.0-37.0); Mean Corpuscular Hemoglobin 29.7 pg (25.0-35.0); Mean Corpuscular Volume 88 fL (80-100); Monocytes # (Auto) 1.4 Thou/mm3 (0.0-0.8); Monocytes % (Auto) 8 % (0-12); Neutrophils # (Auto) 13.0 Thou/mm3 (1.8-7.7); Neutrophils % (Auto) 76 % (37-80); Nucleated Red Blood Cell # 0.00 Thou/mm3 (0.00-0.00); Nucleated Red Blood Cell % 0 /100 WBC (0); Platelet Count 218 Thou/mm3 (140-440); RDW Standard Deviation 48.3 fL (35.1-43.9); Red Blood Count 3.70 Miln/mm3 (4.50-5.90); White Blood Count 17.0 Thou/mm3 (3.8-10.6)
[2025-03-25 08:08] LABS: Alanine Aminotransferase 8 U/L (10-49); Albumin, Serum 3.7 gm/dL (3.4-4.8); Albumin/Globulin Ratio 1.6 (1.2-2.2); Alkaline Phosphatase 86 U/L (46-116); Anion Gap 8 (7-16); Aspartate Amino Transferase < 10 U/L (0-34); BUN/Creatinine Ratio 17 Ratio (12-20); Bilirubin,Total 0.4 mg/dL (0.3-1.2); Blood Urea Nitrogen 10 mg/dL (9-23); Calcium 8.2 mg/dL (8.3-10.6); Calcium (Corrected) 8.4 mg/dL (8.5-10.1); Carbon Dioxide 24.3 mMol/L (20.0-31.0); Chloride 111 mMol/L (98-107); Creatinine (Component) 0.6 mg/dL (0.6-1.3); Estimated Creatinine Clearance 132.5 mL/min (>60); Globulin 2.3 gm/dL (2.3-3.5); Glucose 84 mg/dL (74-106); Magnesium 1.8 mg/dL (1.6-2.6); Osmolality,Calculated 282 (275-295); Phosphorous 2.3 mg/dL (2.4-5.1); Potassium 3.0 mMol/L (3.4-5.1); Sodium 143 mMol/L (136-145); Total Protein 6.0 gm/dL (5.7-8.2); eGFR > 60 See Note
[2025-03-25] MEDS: CLOPIDOGREL BISULFATE 75 MG TABLET PO (09:22)
[2025-03-25] MEDS: TOPIRAMATE 25 MG TABLET PO ×2 (09:22→21:15)
[2025-03-25] MEDS: POTASSIUM CHL 10 mEq IVPB 10 MEQ/100 ML BAG 85 MEQ IV ×3 (09:22→13:19)
[2025-03-25] MEDS: ASPIRIN EC 81 MG TABEC PO (09:22)
[2025-03-25] MEDS: TAMSULOSIN HCL 0.4 MG CAPSULE PO (09:23)
--- NOTE | 2025-03-25 09:55 | PC.NURSE ---
Per Dr. Munguia Leave NG tube in for now.
--- NOTE | 2025-03-25 10:38 | PD.TNEURO ---
Tele Neuro Consultation Consultation Date 03/25/25 Most Recent Vital Signs Last Vital Signs Temp 97.9 F 03/25/25 08:00 Pulse 86 03/25/25 08:00 Resp 19 03/25/25 08:00 BP 143/79 H 03/25/25 08:00 Pulse Ox 95 03/25/25 08:00 O2 Del Method Oxy Mask 03/25/25 08:00 O2 Flow Rate 4 03/25/25 08:00 Laboratory-Coagulation Panel PT 10.9 Seconds (9.0-12.2) 03/22/25 19:53 INR 1.0 (0.9-1.3) 03/22/25 19:53 APTT 23.9 Seconds (22.0-36.0) 03/22/25 19:53 Consultation Narrative [facility] Tele[facility]urology Consult [facility] Patient Name:???Wil Garcia Date of :???1960 Identification Number:??? Date of Service:???03/25/2025 10:04:20 Diagnosis:?I63.00 - Cerebrovascular accident (CVA) due to thrombosis of precerebral artery (HCCC) Impression: ?Patient is a 64 yo male with pmhx HTN, multiple recent street with residual R sided weakness, VF deficits ( & 01/2025), lung ca with mets to brain, SMART syndrome, HF, epilepsy who presented initially after being non-verbal. He was seen by neurology on 03/22 with plan for EEG, MRI which has not yet been done due to mental status. CT/CTA were unremarkable. He was found to have PHT toxicity which is still in process of being corrected. Mental status started to improve but today he is more aphasic and unable to move R leg. LKW is unclear. Unsure if this represents new stroke vs more likely recrudescence in the setting of underlying infectious/metabolic processes, PHT toxicity, etc. Cant rule out possibility of focal seizures with post-ictal phenomenon. STAT MRI/MRA ordered and pending. Regardless, not a candidate for IV thrombolytic or EVT given LKW unclear, recent stroke within 3 month (most recent being 01/2025), hx intracranial neoplasm, MRS 4 with poor neurological baseline. ? ?Further work-up and eval per primary team. Infectious, metabolic work-up and management per primary team. STAT MRI/MRA pending - to be completed within next 20 min per staff. Advised primary provider to contact this provider with any questions or concerns regarding advanced imaging. If + LVO will need to have discussion with neuro IR visual education teacher. Continue DAPT, statin for now. Telemetry recommended. Continue current AED regimen and seizure precautions. EEG recommended when able. Continue to hold Phenytoin for now and check levels daily. PT/OT/ST eval. Delirium and fall precautions. Other management and dispo per primary team. ? ?Discussed with patient, staff and resident provider at bedside who agree with plan of care. Call with any questions or concerns. Our recommendations are outlined below. Recommendations: ? Stroke/Telemetry Floor ? Neuro Checks (Q4) ? Bedside Swallow Eval ? DVT Prophylaxis ? IV Fluids, Normal Saline ? Head of Bed 30 Degrees ? Euglycemia and Avoid Hyperthermia (PRN Acetaminophen) ? Initiate or continue Aspirin 81 MG daily ? Initiate Clopidogrel 75 mg daily Sign Out: ? Discussed with Primary Attending ? Discussed with Rapid Response Team Advanced Imaging:Advanced Imaging Deferred because: Poor functional status at baseline, a greater risk than benefit with acute intervention Metrics: Last Known Well: Unknown Dispatch Time: 03/25/2025 10:04:20 Initial Response Time: 03/25/2025 10:08:05Symptoms: unresponsive. Initial patient interaction: 03/25/2025 10:10:07 NIHSS Assessment Completed: 03/25/2025 10:13:10Patient is not a candidate for Thrombolytic. Thrombolytic Medical Decision: 03/25/2025 10:13:11Patient was not deemed candidate for Thrombolytic because of following reasons: History of previous intracranial hemorrhage, intracranial neoplasm . Significant head trauma or stroke in previous [address] Head: I personally reviewed all the CT images that were available to me and it showed: no acute abn to my eye, pending radiology review. Primary Provider Notified of Diagnostic Impression and Management Plan on: 03/25/2025 10:27:28 Spoke With: Resident provider - Jeffresh Able to Reach 03/25/2025 10:27:28 History of Present Illness:Patient is a 64 year old Male. Inpatient stroke alert was called for symptoms of unresponsive. Patient is a 64 yo male with pmhx HTN, multiple recent street with residual R sided weakness ( & 01/2025), lung ca with mets to brain, SMART syndrome, HF, epilepsy who presented initially after being non-verbal. He was seen by neurology on 03/22 with plan for EEG, MRI which has not yet been done due to mental status. CT/CTA were unremarkable. He was found to have PHT toxicity which is still elevated. Mental status started to improve. Today he is more aphasic and unable to move R leg. He is not following commands. This am was slurring words but has gotten worse. ? Past Medical History: ?Hypertension ?Stroke ?Seizures ?There is no history of Diabetes Mellitus ?There is no history of Hyperlipidemia ?There is no history of Atrial Fibrillation ?There is no history of Coronary Artery Disease Medications: No Anticoagulant use? Antiplatelet use:?Yes?DAPT Reviewed EMR for current medications Allergies:? Reviewed Social History: Smoking: Former Alcohol Use: No Drug Use: No Family History: There is no family history of premature cerebrovascular disease pertinent to this consultation ROS : 14 Points Review of Systems was performed and was negative except mentioned in HPI. Past Surgical History: There Is No Surgical History Contributory To Today?s Visit ? Examination: BP(143/79),?Pulse(86), 1A: Level of Consciousness - Arouses to minor stimulation?+ 1 1B: Ask Month and Age - Could Not Answer Either Question Correctly?+ 2 1C: Blink Eyes & Squeeze Hands - Performs Both Tasks?+ 0 2: Test Horizontal Extraocular Movements - Normal?+ 0 3: Test Visual Schwab - Complete Hemianopia?+ 2 4: Test Facial Palsy (Use Grimace if Obtunded) - Normal symmetry?+ 0 5A: Test Left Arm Motor Drift - No Drift for 10 Seconds?+ 0 5B: Test Right Arm Motor Drift - Drift, but doesn't hit bed?+ 1 6A: Test Left Leg Motor Drift - Drift, but doesn't hit bed?+ 1 6B: Test Right Leg Motor Drift - No Effort Against Dwight?+ 3 7: Test Limb Ataxia (FNF/Heel-De [place] Cruz) - Does Not Understand?+ 0 8: Test Sensation - Normal; No sensory loss?+ 0 9: Test Language/Aphasia - Severe Aphasia: Fragmentary Expression, Inference Needed, Cannot Identify Materials?+ 2 10: Test Dysarthria - Severe Dysarthria: Unintelligble Slurring or Out of Proportion to Aphasia?+ 2 11: Test Extinction/Inattention - No abnormality?+ 0 NIHSS Score:?14 Pre-Morbid Modified [place] Scale:4 Points = Moderately severe disability; unable to walk and attend to bodily needs without assistance Spoke with :?Resident provider - Ezra This consult was conducted in real time using interactive audio and video technology. Patient was informed of the technology being used for this visit and agreed to proceed. Patient located in hospital and provider located at home/office setting. Patient is being evaluated for possible acute neurologic impairment and high probability of imminent or life-threatening deterioration. I spent total of 35 minutes providing care to this patient, including time for face to face visit via telemedicine, review of medical records, imaging studies and discussion of findings with providers, the patient and/or family. Dr Genaro Gipson [facility] For Inpatient follow-up with [facility] physician please call [facility] at . As we are not an outpatient service for any post hospital discharge needs please contact the hospital for assistance. If you have any questions for the [facility] physicians or need to reconsult for clinical or diagnostic changes please contact us via [facility] at .
[2025-03-25 11:01] LABS: Phenytoin (Dilantin) 31.5 mcg/mL
[2025-03-25 11:14] LABS: INR 1.1 (0.9-1.3); Partial Thromboplastin Time 36.0 Seconds (22.0-36.0); Prothrombin Time 11.6 Seconds (9.0-12.2)
[2025-03-25] MEDS: SODIUM CHLORIDE 0.9% 1000 ML 1,000 ML 75 ML IV (12:09)
--- NOTE | 2025-03-25 12:27 | PC.SS ---
SS met with patient and his dtr, Valeri regarding his d/c plan.? Pt is alert but unable to speak.? Pt is able to answer yes or no questions.? Pt was admitted for Aphasia.? Dtr confirmed demographic and contact information is correct on facesheet.? Pt is from [facility].? Pt is bedbound.? Pt requires assistances with all ADLs.? SS provided verbal options for d/c to home or back to [facility].? Dtr, Vlaeri is requesting for pt to return home with [facility].? Pt has walker and wheelchair at home.? Pt is currently on 4 liters of O2.? Pt does not use O2 at home.? Dtr is requesting a hospital bed, commode, and shower chair.? Dtr, Valeri Resendiz states she is patient's medical decision maker.?? D/C plan:? ?home with [facility] Next of Kin:? Valeri Resendiz, daughter, phone# [phone] PCP:? Dr. Nadeem Caputo Address:? Correct on facesheet
[2025-03-25] MEDS: POTASSIUM CHL 10 mEq IVPB 10 MEQ/100 ML BAG 100 MEQ IV (14:46)
--- NOTE | 2025-03-25 15:40 | PC.SS ---
SS has sent new Hospice Referral to [facility] using [facility]. SS has spoken to Diana from [facility] to inform her dtr is requesting hospital bed, shower chair, commode, and home O2. SS has spoken to dtr who is arranging her home to accept pt tomorrow.
--- NOTE | 2025-03-25 17:12 | PC.NURSE ---
Addendum entered by Karen Stover RN 03/25/25 17:24: Dr. Suresh aware. Addendum entered by Karen Stover RN 03/25/25 17:14: Due to pt. planning to be discharged on hospice, no need to continue to check phenytoin levels. Original Note: Provided poison control with an update
--- NOTE | 2025-03-25 17:29 | PD.RESPRO ---
Documentation for date of: 03/25/25 Subjective Subjective Interval history: The patient was evaluated at bedside, noted to have worsening aphasia at the time of evaluation as well as unable to move right upper and lower extremity, stroke alert was called, teleneuro consult was obtained, decision made to proceed with MRI/MRA stat, as patient had CT imaging on arrival which had shown old strokes. Imaging of the brain negative for hemorrhage, negative for acute stroke. Daughter is present, who was concerned that the patient was awake and alert and able to have a conversation with her this morning able to communicate his wishes regarding not being on life support. After goals of care discussion, patient CODE STATUS was updated to DNR, hospice referral initiated per patient's wishes. Exam Vital Signs Temp Pulse Resp BP Pulse Ox O2 Del Method O2 Flow Rate 97.7 F 75 14 137/74 H 99 Nasal Cannula 4 03/25/25 12:00 03/25/25 12:00 03/25/25 12:00 03/25/25 12:00 03/25/25 12:00 03/25/25 12:00 03/25/25 12:00 Narrative Exam Physical Exam GENERAL: Awake, NG tube in situ noted, in mild distress due to pain and discomfort. HEENT: dry mucosa. CARDIO: Heart RRR, no obvious murmurs PULM: No noted coughing/dyspnea CTA B/L, no R/W/R GI: Abdomen soft, nondistended, no pain on palpation. BSx4 SKIN/MSK/EXT: multiple ecchymosis on both arms. no pain on palpation. Pedal pulses present B/L Objective Labs 03/26/25 05:31 03/26/25 05:31 Labs: Laboratory Results - last 24 hr 03/25/25 03/25/25 03/25/25 00:58 07:24 10:18 WBC 17.0 H D RBC 3.70 L Hgb 11.0 L Hct 32.4 L MCV 88 MCH 29.7 MCHC 34.0 RDW Std Deviation 48.3 H Plt Count 218 Neut % (Auto) 76 Lymph % (Auto) 13 [place] % (Auto) 8 Eos % (Auto) 2 Baso % (Auto) 0 Neut # (Auto) 13.0 H Lymph # (Auto) 2.2 [place] # (Auto) 1.4 H Eos # (Auto) 0.3 Baso # (Auto) 0.1 Immature Gran # (Auto) 0.08 H Absolute Nucleated RBC 0.00 Immature Gran % 1 H Nucleated RBC % 0 PT 11.6 INR 1.1 APTT 36.0 D Sodium 143 Potassium 3.0 L Chloride 111 H Carbon Dioxide 24.3 Anion Gap 8 BUN 10 Creatinine 0.6 Estim Creat Clear Calc 132.5 eGFR > 60 BUN/Creatinine Ratio 17 Glucose 84 Calculated Osmolality 282 Calcium 8.2 L Corrected Calcium 8.4 L Phosphorus 2.3 L Magnesium 1.8 Total Bilirubin 0.4 AST < 10 ALT 8 L Alkaline Phosphatase 86 Total Protein 6.0 Albumin 3.7 Globulin 2.3 Albumin/Globulin Ratio 1.6 Phenytoin 31.4 H* 31.5 H* ABG Interpretation ABG results: 03/22/25 03/23/25 19:53 16:17 ABG pH 7.39 ABG pCO2 40 ABG pO2 73 L ABG HCO3 24 ABG O2 Saturation 96 ABG Base Excess -1 VBG pH 7.38 VBG pCO2 40 VBG pO2 79 H VBG Base Excess -2 Quality Measures Quality Measures sepsis Current suspected stage: sepsis Possible source: pulmonary Blood cultures ordered: yes Antibiotic ordered: Yes and none Assessment & Plan Assessment Current Active Medications: Generic Name Dose Route Start Last Admin Trade Name Freq PRN Reason Stop Dose Admin Acetaminophen 650 mg 03/23/25 06:03 Acetaminophen 325 Mg Tablet PO 04/22/25 06:02 Q6H PRN Fever >100.4 Acetaminophen 1,000 mg 03/23/25 06:03 Acetaminophen 325 Mg Tablet PO 04/22/25 06:02 Q6H PRN PAIN SCALE 1-3 (mild Aspirin 81 mg 03/23/25 09:00 03/25/25 09:22 Aspirin Ec 81 Mg Tabec PO 04/22/25 08:59 81 mg QDAY EDYTA Administration Atorvastatin Calcium 80 mg 03/23/25 21:00 03/24/25 20:01 Atorvastatin Calcium 20 Mg Tablet PO 04/22/25 20:59 80 mg HS EDYTA Administration Clopidogrel Bisulfate 75 mg 03/23/25 09:00 03/25/25 09:22 Clopidogrel Bisulfate 75 Mg Tablet PO 04/22/25 08:59 75 mg QDAY EDYTA Administration Sodium Chloride 1,000 mls @ 75 mls/hr 03/23/25 06:15 03/25/25 12:09 Ns IV 04/22/25 06:14 75 mls/hr .[id number] EDYTA Administration Piperacillin/Tazobactam/Dextrose 3.375 g in 50 mls @ 100 mls/hr 03/24/25 06:38 03/25/25 13:19 Zosyn IV 03/31/25 06:37 100 mls/hr Q8HR EDYTA Administration Labetalol HCl 10 mg 03/23/25 06:03 Labetalol Inj 5 Mg/Ml Vial 20 Ml IVP 04/22/25 06:02 Q6H PRN SBP>220, DBP>110 Ondansetron HCl 4 mg 03/23/25 06:03 Ondansetron Inj 2 Mg/Ml Inj 2 Ml IVP 04/22/25 06:02 Q6H PRN NAUSEA OR VOMITING Protocol Oxcarbazepine 900 mg 03/23/25 09:00 03/25/25 09:24 Oxcarbazepine 150 Mg Tablet PO 04/22/25 08:59 900 mg BID EDYTA Administration Tamsulosin HCl 0.4 mg 03/23/25 09:00 03/25/25 09:23 Tamsulosin Hcl 0.4 Mg Capsule PO 04/22/25 08:59 0.4 mg QDAY EDYTA Administration Topiramate 25 mg 03/23/25 09:00 03/25/25 09:22 Topiramate 25 Mg Tablet PO 04/22/25 08:59 25 mg BID EDYTA Administration Plan 64-year-old male with past medical history as stated above who presented today due to new onset aphasia. Patient will be admitted for stroke workup. Goals of care: Per discussion with patient's daughter, who is the decision-maker, she reported that this morning patient was awake, conversational, report was corroborated by RN reported patient is more alert and able to communicate, daughter reported that patient Mr. Garcia had communicated to her that he would not want to continue on life support with artificial means. Per daughter, she had discussed the situation with family previously, and would like to honor Mr. Garcia's wishes, avoid aggressive intervention, wish for him to be close to family and passively and dignity. Case management notified, hospice referral initiated. 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 Sanderson Presented with new onset aphasia per the family, on arrival to the ER patient also was noted to have horizontal nystagmus possibly in the setting of seizures Head CT shows No interval acute hemorrhage mass effect or midline shift Head/neck CTA shows No significant neck arterial stenoses, No cerebral arterial vessel occlusions ? Resume all patient's antiseizure medications, except phyenytoin ? Aspirin 81 mg ? Plavix 75 mg ? Every 4 neurochecks ? Speech, physical therapy eval ? Failed speech eval, stays N.p.o. currently on maintenance iv fluids. ? Aspiration precautions ? Seizures precautions ? MRI/MRI brain 03/25/2025 negative for acute ischemic stroke or hemorrhage. Teleneuro recommendations noted. Elbow #Acute encephalopathy #Phenytoin toxicity Antiepileptic medications were resumed, with the exception of phenytoin. Phenytoin levels 31.8, which were drawn prior to IV phenytoin push. Repeat phenytoin levels more than 40, lab unable to dilute the sample to give an exact number. Spoke to [employer] control [place], recommended every 4 hour phenytoin level checks, monitor for downtrend. Conservative for management. Holding off on phenytoin until levels in the safe range. Neurology consulted Dr. Christina was placed, but neurology unable to follow due to patient's past. Patient has a neurologist at [facility], apparently ER tried to transfer the patient yesterday and was recommended to treat patient's acute problem, no need for transfer. Patient was admitted by overnight team after transfer was unsuccessful. Currently patient undergoing workup for stroke, pending MRI, echocardiogram. Quite possible acute encephalopathy precipitated by phenytoin overdose. ? Every 4 hours phenytoin levels, now downtrending, will repeat phenytoin levels in AM. ? Hold phenytoin until levels within safe range. #Acute hypoxic respiratory failure #Concern for aspiration pneumonia Started on antibiotics, was seen saturating well on 3 L, oxygen, but had acute hypoxic event, started on oxygen mask at 10 L. ? Repeat chest x-ray was ordered, ? ABG was ordered. ? IV ceftriaxone once daily ? IV metronidazole 3 times daily #Leucocytosis No new fever or seizures overnight, but did notice increasing WBC count, now 31,000, ordered ultrasound abdomen to evaluate any intra-abdominal source of infection, negative for cholecystitis or pyonephritis, chest x-ray was negative for pneumonia, urinalysis did show some WBCs but unimpressive for urosepsis. Broaden antibiotic coverage with Zosyn, pending blood cultures. Pending MRI brain. - Follow blood cultures and urine cultures. - Chronic problems: #history of lung cancer with metastasis to brain in remission status post-radiation and surgical therapy, #HFrEF EF of 35 to 40%, #Benign prostate hypertrophy, #Hypertension ?Resume home meds when appropriate Health Maintenance: Disposition: Telemetry, CVA workup Fluids: NS Feeding: N.p.o. Thrombo prophylaxis: SCDs Gastric Ulcer prophylaxis: None CODE STATUS: DNR/DNI Case discussed with my attending Dr. 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 Initial CT head and CTA was negative and patient did not receive tPA. During course of hospitalization, patient noted to have acute encephalopathy and patient's phenytoin levels was noted to be 31.8 and initially thought that patient acute encephalopathy and aphasia was related to phenytoin toxicity. On 03/25/2025 rapid response was called as patient was noted to have worsening aphasia and right-sided weakness thus another stroke alert was activated and teleneuro evaluated the patient and recommended getting a stat MRI. Stat MRI with brain which did not show any acute intracranial ischemic changes or hemorrhage. Goals of care discussion was initiated and family wanted patient to date DNR and will consider hospice placement. Will respect her decision and continue conservative management for now. Overall prognosis is poor.I reviewed above note and agree with findings and plans. I have also personally examined the patient with medicine team and went over assessment and plan with medical team including international sales representative and resident physician.
[2025-03-25] MEDS: ATORVASTATIN CALCIUM 20 MG TABLET 80 MG PO (21:15)
[2025-03-26] VITALS (7 sets, daily range): BP systolic 122–144; BP diastolic 70–84; PULSE 62–86; RESP 16–21; TEMP 36.2–36.5; O2SAT 98–100; BMI 22.1
[2025-03-26] MEDS: SODIUM CHLORIDE 0.9% 1000 ML 1,000 ML 75 ML IV (02:56)
[2025-03-26] MEDS: PIPER/TAZO 3.375 GM PREMIX 3.375 G/50 ML BAG IV (05:25)
[2025-03-26 06:39] LABS: Basophils # (Auto) 0.1 Thou/mm3 (0.0-0.2); Basophils % (Auto) 0 % (0-2.5); Eosinophils # (Auto) 0.4 Thou/mm3 (0.0-0.5); Eosinophils % (Auto) 3 % (0-10); Hematocrit 31.1 % (41.0-53.0); Hemoglobin 10.4 g/dL (13.5-16.0); Immature Granulocytes Auto 0.07 Thou/mm3 (0.00-0.00); Lymphocytes # (Auto) 1.9 Thou/mm3 (1.0-4.8); Lymphocytes % (Auto) 14 % (10-50); Mean Corpuscular HGB Conc 33.4 g/dl (31.0-37.0); Mean Corpuscular Hemoglobin 29.5 pg (25.0-35.0); Mean Corpuscular Volume 88 fL (80-100); Monocytes # (Auto) 1.1 Thou/mm3 (0.0-0.8); Monocytes % (Auto) 8 % (0-12); Neutrophils # (Auto) 9.9 Thou/mm3 (1.8-7.7); Neutrophils % (Auto) 74 % (37-80); Nucleated Red Blood Cell # 0.00 Thou/mm3 (0.00-0.00); Nucleated Red Blood Cell % 0 /100 WBC (0); Platelet Count 247 Thou/mm3 (140-440); RDW Standard Deviation 47.9 fL (35.1-43.9); Red Blood Count 3.52 Miln/mm3 (4.50-5.90); White Blood Count 13.5 Thou/mm3 (3.8-10.6)
[2025-03-26 07:08] LABS: Alanine Aminotransferase 10 U/L (10-49); Albumin, Serum 3.5 gm/dL (3.4-4.8); Albumin/Globulin Ratio 1.6 (1.2-2.2); Alkaline Phosphatase 80 U/L (46-116); Anion Gap 9 (7-16); Aspartate Amino Transferase 11 U/L (0-34); BUN/Creatinine Ratio 16 Ratio (12-20); Bilirubin,Total 0.3 mg/dL (0.3-1.2); Blood Urea Nitrogen 8 mg/dL (9-23); Calcium 8.1 mg/dL (8.3-10.6); Calcium (Corrected) 8.5 mg/dL (8.5-10.1); Carbon Dioxide 25.5 mMol/L (20.0-31.0); Chloride 111 mMol/L (98-107); Creatinine (Component) 0.5 mg/dL (0.6-1.3); Estimated Creatinine Clearance 157.0 mL/min (>60); Globulin 2.2 gm/dL (2.3-3.5); Glucose 85 mg/dL (74-106); Magnesium 1.7 mg/dL (1.6-2.6); Osmolality,Calculated 286 (275-295); Phenytoin (Dilantin) 30.3 mcg/mL; Phosphorous 2.2 mg/dL (2.4-5.1); Potassium 3.1 mMol/L (3.4-5.1); Sodium 145 mMol/L (136-145); Total Protein 5.7 gm/dL (5.7-8.2); eGFR > 60 See Note
[2025-03-26] MEDS: Magnesium Sulfate 2 GM Ivpb 2 GM/50 ML BAG IV (09:21)
[2025-03-26] MEDS: NAPH,KPH MBDB 1 PACKET (1.5 GM) PO (09:23)
[2025-03-26] MEDS: POTASSIUM CHLORIDE 10% 20 MEQ/15 ML UDC 40 MEQ PO (09:23)
[2025-03-26] MEDS: ASPIRIN EC 81 MG TABEC PO (09:24)
[2025-03-26] MEDS: CLOPIDOGREL BISULFATE 75 MG TABLET PO (09:24)
[2025-03-26] MEDS: TAMSULOSIN HCL 0.4 MG CAPSULE PO (09:24)
[2025-03-26] MEDS: TOPIRAMATE 25 MG TABLET PO (09:24)
--- NOTE | 2025-03-26 13:46 | PC.PT ---
Patient is returning home with hospice services. Will D/C patient from PT services at this time.
--- NOTE | 2025-03-26 14:00 | PD.RESDS ---
Planned Discharge Date 03/26/25 DS: Providers Provider Date of admission: 03/23/25 06:27 Primary care physician: Nadeem Caputo MD Admitting Provider: Tony Becerra MD Attending Provider on Admission: Dorian Cabral MD Consults: 03/22/25 19:27 Consult to Neurology / Tele-Neurology Routine Comment: Consulting Provider: [facility] 03/23/25 06:03 Consult to Neurology / Tele-Neurology Routine Comment: Consulting Provider: Kvng Christina Referral Physical Therapy Routine Comment: Physician Instructions: Referral Speech Therapy Routine Comment: 03/23/25 15:38 [facility] Referral - Knowledge Deficit Routine Comment: Positive screening for knowledge deficit needs. 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 Patinet noted to have elevated levels of phenytoin, treating symptomatically. Patient and family decided to forgo further aggressive intervention and procceed with medical managment, now home with hospice. ED vitals: BP 136/84, HR 102, RR 24, temperature 102.0 ?F, saturating 96% on 6 L nasal cannula ED labs: Leukocytosis, ammonia 45 rest of CMP unremarkable, UA negative for UTI some yeast noted In the ED patient received phenytoin, 1 L LR, lacosamide, Rocephin Hospital Course: Patient presented with new onset of aphasia concerning features of stroke. CT head negative. Patient's home medication of Aspirin and Plavix continued. MRI negative for acute ischemic stroke, old innfarct present. Acute encephalopathy, likely metabolic as phenytonin toxity present. Patient levels tracked after calling poison control. Currenlty holding phenytonin, please follow up outpatinet for levels and resume based on PCP or neurology recommendations. Phenytonin level prior to discharge 03/26/2025-30.3. Goals of care discussion with family, at this time patient would like to go home w/ hospice given overall prognosis and steady decline. Resume the rest of medication, except phenytonin. #Goals of Care #Hospice #CVA, ruled out #history of CVA, 2020 #SMART Syndrome #Acute Encephalopathy, secondary to phyenytonin, improved # Phenytoin toxicity #Acute hypoxic respiratory failure #Concern for aspiration pneumonia, ruled out #Leucocytosis #history of lung cancer with metastasis to brain in remission status post-radiation and surgical therapy, #HFrEF EF of 35 to 40%, #Benign prostate hypertrophy, #Hypertension Instructions: -continue medication as prescribed -Hold Phenytoin levels as they are elevated and follow up with repeat lab. -Please follow up with your primary care provider within one week of discharge -If your symptoms worsen,please seek immediate medical attention and return to your nearest emergency room -If you do not have a primary care provider, you may follow up at the [facility] at [address] [place] [address] [address], [place] [address], - The patient's plan was discussed with attending Dr. Marianna Cotter MD PGY2 Internal Medicine Time Spent with Patient Time attestation: Total time spent providing and/or coordinating discharge services:at least 30 minutes of care and coordination Time spent: Greater than 30 minutes Quality: Stroke Pt Provided Written Stroke Discharge Instructions: Yes Exam Vital Signs Temp Pulse Resp BP Pulse Ox O2 Del Method O2 Flow Rate 97.7 F 70 18 122/72 98 Nasal Cannula 4 03/26/25 13:45 03/26/25 13:45 03/26/25 13:45 03/26/25 13:45 03/26/25 13:45 03/26/25 13:45 03/26/25 13:45 FiO2 77 03/25/25 21:23 Narrative Exam GENERAL: Awake, NG tube in situ noted, in mild distress due to pain and discomfort. HEENT: dry mucosa. CARDIO: Heart RRR, no obvious murmurs PULM: No noted coughing/dyspnea CTA B/L, no R/W/R GI: Abdomen soft, nondistended, no pain on palpation. BSx4 SKIN/MSK/EXT: multiple ecchymosis on both arms. no pain on palpation. Pedal pulses present B/L Discharge Plan Plan Patient Disposition: Home w/HOSPICE Patient condition on transfer: Stable Care Plan Goals: Instructions: -continue medication as prescribed -Hold Phenytoin levels as they are elevated and follow up with repeat lab. -Please follow up with your primary care provider within one week of discharge -If your symptoms worsen,please seek immediate medical attention and return to your nearest emergency room -If you do not have a primary care provider, you may follow up at the [facility] at [address] [place] [address] [address], [place] [address], Prescriptions/Referrals Prescriptions/Med Rec: Continued tamsulosin 0.4 mg capsule 0.4 mg PO QDAY oxcarbazepine [Trileptal] 300 MG tablet 900 mg PO BID Qty: 0 Rx Instructions: TAKE 3 TABLETS BY MOUTH TWICE DAILY topiramate 25 mg Capsule, Sprinkle 75 mg PO BID Rx Instructions: TAKE 1 CAPSULE BY MOUTH TWICE DAILY FOR SEIZURES aspirin [Jerica Low Dose Aspirin] 81 mg Tablet,Delayed Release (Dr/Ec) 81 mg PO DAILY 30 Days Qty: 30 0RF clobazam 10 mg tablet 5 mg PO BID clopidogrel [Plavix] 75 mg tablet 75 mg PO QDAY lacosamide 50 mg tablet 50 mg PO BID metoprolol tartrate 25 mg tablet 12.5 mg PO BID spironolactone [Aldactone] 25 mg tablet 12.5 mg PO QDAY atorvastatin 20 mg tablet 40 mg PO DAILY Patient Comments: TAKE 1 TABLET BY MOUTH ONCE A DAY FOR HIGH CHOLESTEROL FOR 30 DAYS 90 Held Phenytoin Sodium Extended * (DILANTIN *) 100 MG capsule 150 mg PO TID Qty: 0 Hold Instructions: Resume on 04/02/25. Hold until you follow up with your primary care provider as levels are elevated. please repeat phenytoin levels. Patient Comments: FOR SEIZURE CONTROL Referrals: Nadeem Caputo MD [Primary Care Provider] - Patient/Caregiver Discharge Instructions Education Materials: What Is Hospice?, Starting Hospice, Understanding DNR Orders, Discharge Instructions for Stroke Print Language: Kyrgyz Stand Alone Forms: Jasmina Award Info., Patient Portal Info Letter Discharge Order Discharge Orders: Discharge (Routine); Ordered 03/26/25 Ordered By: Imelda Cotter Quality Discharge Quality Measures VTE prophylaxis
--- NOTE | 2025-03-26 16:56 | PC.SS ---
SS spoke to medical team with update pt transportation possible move to 3pm SS recevied call from [place] with moving transportation to later; SS asked to keep it as close to 2 due to pt is hospice, Gee will do best SS spoke with Valeri of 2pm transportation SS spoke with medical team of 2pm transportation SS spoke with Gunnar, confirmed transportation time of 2pm SS spoke with Gee Sultana, provided all documentation vian SHARLENE including [facility]; set up transportation for 2pm SS spoke with Ramiro Bateman, SS learned pt [facility] has been inactive since 2016 SS spoke with Valeri, pt dtr, confirmed everything arrived and ready for pt; confirmed time between 1-2 is sufficient SS spoke with MONALISA [facility] hospice sld educational aide [phone], team is avaiable anytime between 1-2 SS attempted main office hospice, spke with steam presser who will have hospice oncall return call SS attempted [facility] main office hospice LM SS attempted [facility] [phone], SEVA SS learned pt to discharge Hospice with MONALISA
== END 2025-03-26 14:16 | disposition hospice, home (50) | DRG 91 ==
LOC: SERX 03-23 06:12 → SERHOLD 03-23 06:30 → S2NX 03-23 15:02
PROVIDERS: Student in an Organized Health Care Education/Training Program; Admitting Provider Internal Medicine; Emergency Provider Emergency Medicine; PCP Family Medicine; Visit Provider Internal Medicine
DX: R47.01 Aphasia (principal); G93.41 Metabolic encephalopathy; J96.01 Acute respiratory failure with hypoxia; C34.90 Malignant neoplasm of unspecified part of unspecified bronchus or lung; I50.22 Chronic systolic (congestive) heart failure; C79.31 Secondary malignant neoplasm of brain; H55.09 Other forms of nystagmus; D72.829 Elevated white blood cell count, unspecified; Z87.891 Personal history of nicotine dependence; G40.909 Epilepsy, unspecified, not intractable, without status epilepticus; Z85.118 Personal history of other malignant neoplasm of bronchus and lung; N40.0 Benign prostatic hyperplasia without lower urinary tract symptoms; I11.0 Hypertensive heart disease with heart failure; I69.320 Aphasia following cerebral infarction; H54.7 Unspecified visual loss; I49.3 Ventricular premature depolarization; T42.0X5A Adverse effect of hydantoin derivatives, initial encounter; Z66 Do not resuscitate; Z79.82 Long term (current) use of aspirin; Z92.3 Personal history of irradiation; Z79.899 Other long term (current) drug therapy
CPT/HCPCS: 36415; 36600; 70450; 70496; 70498; 70544; 71045; 76700; 80053; 80061; 80185; 80201; 80307; 80320; 80329; 81001; 82140; 82803; 83605; 83735; 84100; 84145; 84436; 84443; 84484; 85025; 85610; 85730; 87040; 87081; 87086; 87400; 87811; 92526; 92610; 93005; 93306; 96365; 96375; 97162; 99285; A4649; C9254; J0696; J1165; J2543; J3475; J3480; J3490; J7030; J7050; J7120; Q9967; A9270; G0480; J1836